=== PATIENT | female | born 1975 | race Caucasian/White ===

== ENCOUNTER 2024-09-23 17:49 | Emergency (ER) | payer MEDICAID, SELFPAY ==
[2024-09-23 17:53] VITALS: BP 134/78
[2024-09-23 18:18] LABS: % Basophils 0.7 % (0-2); % Eosinophils 0.5 % (0-6); % Immature Granulocytes 0.7 % (0-0.5); % Lymphocytes 15.9 % (20.5-51.1); % Neutrophils 74.2 % (42.2-75.2); Absolute Basophils 0.1 10^3/uL (0-0.2); Absolute Eosinophils 0.1 10^3/uL (0-0.7); Absolute Immature Granulocytes 0.1 10^3/uL (0-0.05); Absolute Lymphocytes 2.4 10^3/uL (1.2-3.4); Absolute Monocytes 1.2 10^3/uL (0.1-0.6); Absolute Neutrophils 11.3 10^3/uL (1.4-6.5); Hematocrit 38.3 % (37.0-47.0); Hemoglobin 13.7 g/dL (12.0-16.0); Mean Corp Hgb Conc. 35.8 g/dL (33.0-37.0); Mean Corpuscular Volume 86.7 fL (81.0-99.0); Mean Platelet Volume 8.6 fL (7.4-10.4); Nucleated Red Blood Cells % 0 %; Platelet Count 437 10^3/uL (130-400); Red Blood Cell Count 4.42 10^6/uL (4.20-5.40); Red Cell Dist. Width 14.1 % (11.5-14.5); White Blood Cell Count 15.3 10^3/uL (4.8-10.8)
[2024-09-23 18:28] LABS: ALT (SGPT) 26 U/L (0-35); AST (SGOT) 22 U/L (14-36); Albumin 3.8 g/dl (3.5-5.0); Alkaline Phosphatase 134 U/L (38-126); Blood Urea Nitrogen 13 mg/dl (7-17); Calcium 8.9 mg/dl (8.4-10.2); Carbon Dioxide 21 mmol/L (22-30); Chloride 106 mmol/L (98-107); Glucose 159 mg/dl (70-99); Potassium 3.8 mmol/L (3.5-5.1); Sodium 140 mmol/L (135-145); Total Bilirubin 0.5 mg/dl (0.2-1.3); Total Protein 6.6 g/dl (6.3-8.2); eGFR > 60.00
[2024-09-23 19:00] VITALS: BP 128/77
[2024-09-23 19:30] LABS: Lactic Acid 1.2 mmol/L (0.7-2.0)
--- NOTE | 2024-09-23 19:44 | ED.SKININJ ---
HPI-Injury
General
Chief Complaint: Skin Problem
Source: patient
Exam Limitations: none
Time Seen by Provider: 09/23/24 18:58
Nursing documentation reviewed up to this point in time: agreed with
History of Present Illness-Injury
Is this injury a work related problem?: No
Is pt an associate of [facility]/[place]?: No
Initial Injury comments:
Patient to ED wtih complaint of skin abscess to left lateral chest. Symptms started on Monday. States she tried to drain site last PM, expressed a small amt of pus. Today pain redness and swelling is worse. SHe denies fever/chills. Brought
self to ED for eval.
Past History
Past History
ED Past Medical History: Psychiatric (anxiety)
Review of Systems
Review of Systems
Allergies reviewed?: Yes
All Other Systems: ROS reviewed and negative except as documented in HPI and ROS
Constitutional: Reports no symptoms
EENT: Reports no symptoms
Respiratory: Reports no symptoms
Cardiac: Reports no symptoms
ABD/GI: Reports no symptoms
Musculoskeletal: Reports no symptoms
Skin: Reports other (large abscess left lat chest)
Neurological: Reports no symptoms
Psychiatric: Reports no symptoms
Skin Exam
Abscess
Left Lateral Chest:
Description of abscess: firm
Surrounding skin:: reddened around abscess
Phy Exam
General Physical Exam
General Presentation: well appearing and no apparent distress
General age: appears stated age
General Skin: warm and dry
General Habitus: normal
General Mental: alert
Musculoskeletal Exam
Musculoskeletal Exam: full ROM and neuro vasc intact
Skin Exam
Skin Exam: normal color, warm/dry, no rash and other (large skin abscess left lateral chest)
Psychiatric Exam
Psychiatric Exam: normal mood/affect
Course
Orders/Labs/Results
Orders:
Orders
09/23/24 18:04
Complete Blood Count/With Diff Urgent
Comprehensive Metabolic Panel Urgent
09/23/24 19:11
Lactic Acid Urgent
09/23/24 19:40
Wound Culture [Wound/Abscess/Other Culture] Urgent
KAT Source: Chest
Specimen Description: Left
Date Specimen was Collected: 09/23/24
Time Specimen was Collected: 19:44
09/23/24 19:41
CeFAZolin 1 GRAM [Ancef] 1 gram in 5 ml IV NOW
09/23/24 19:42
CeFAZolin SODIUM [Ancef] 1,000 mg .ROUTE .STK-MED ONE
09/23/24 19:43
Sterile Water [Sterile Water For Injection] 10 ml .ROUTE .STK-MED ONE
Abnormal Lab Results
09/23/24
18:04
WBC 15.3 H 10^3/uL
(4.8-10.8)
Plt Count 437 H 10^3/uL
(130-400)
Abs Immat Gran (auto) 0.1 H 10^3/uL
(0-0.05)
Absolute Neuts (auto) 11.3 H 10^3/uL
(1.4-6.5)
Absolute Monos (auto) 1.2 H 10^3/uL
(0.1-0.6)
Immature Gran % 0.7 H %
(0-0.5)
Lymphocytes % 15.9 L %
(20.5-51.1)
Carbon Dioxide 21 L mmol/L
(22-30)
Creatinine 0.5 L mg/dL
(0.6-1.0)
Glucose 159 H mg/dl
(70-99)
Alkaline Phosphatase 134 H U/L
(38-126)
09/23/24 18:04
09/23/24 18:04
Vital Signs
Initial and Last Documented VS:
Initial Vital Signs
Temp Pulse Resp BP Pulse Ox
98.2 F 103 16 134/78 97
09/23/24 17:53 09/23/24 17:53 09/23/24 17:53 09/23/24 17:53 09/23/24 17:53
Last Documented Vital Signs
Temp Pulse Resp BP Pulse Ox
98.2 F 103 16 134/78 97
09/23/24 17:53 09/23/24 17:53 09/23/24 17:53 09/23/24 17:53 09/23/24 17:53
Procedures
Incision/Drainage/Joint Aspiration
Left Lateral Chest:
Anethesia: 1% Lidocaine with Epi
Preparation: cleaned with Betadine
Type of procedure: incise and drain
Nature of site: abscess
Description of abscess: greater than 3cm
How much fluid was obtained?: large amount
Fluid description: purulent
Treatment: left open for drainage and antibiotics started
*Critical Care Note
Total Time (30-74mins, 75-104mins- exclusive of procedures): Not Applicable
ED Attending Note
-
Portions of this chart may have been created with voice recognition software.� Occasional wrong word or��sound alike� substitutions may have occurred due to the inherent limitations of voice recognition software.
Discharge Plan
Departure
Patient Disposition: Home (Routine Discharge)
Date of Disposition: 09/23/24
Time of Disposition: 19:42
Patient with high blood pressure during this ER visit?: No
Condition: Good
Covid-19: Not Applicable
Discharge Problem:
Abscess of skin
Instructions: Wound Incision and Drainage (DC), Skin Abscess
Prescriptions:
New
cephalexin 500 mg capsule
500 mg PO Q6H 10 Days Qty: 40 0RF
Activity Restrictions/Additional Instructions:
Return to the emergency department immediately for fever/chills, increasing pain/redness/swelling to abscess site, or for any further concerns.
Interventions
Interventions:
*Risk Screen - Suicide Last Done: 09/23/24 17:59
*Neglect/Abuse Screening Last Done: 09/23/24 17:59
ED- Fall Risk Assessment Last Done: 09/23/24 19:11
*ED COVID-19 Vaccine History Last Done: 09/23/24 17:59
ED-Skin Assessment Last Done: 09/23/24 19:11
Discharge Date and Time
Print Language: MAORI
[2024-09-23] MEDS: ANCEF 5 IV (20:08)
[2024-09-23 21:08] VITALS: BP 133/69
== END 2024-09-23 21:08 | disposition home or self-care (01) ==
LOC: EMR 17:49
PROVIDERS: Emergency Medicine; Nurse Practitioner; EMERGENCY PHYSICIAN Student in an Organized Health Care Education/Training Program
DX: L02.213 Cutaneous abscess of chest wall (principal)
CPT/HCPCS: 99284; 96374; 10060; 80053; 83605; 85025; 87070; 87147; 87186; 87205

== ENCOUNTER 2024-10-12 23:01 | Inpatient (IN) | payer MEDICAID, OTHER, SELFPAY ==
[2024-10-12] VITALS (7 sets, daily range): BP systolic 142–150; BP diastolic 72–97; BMI 25.1
[2024-10-12 18:46] LABS: % Basophils 0.2 % (0-2); % Immature Granulocytes 0.6 % (0-0.5); % Lymphocytes 5.4 % (20.5-51.1); % Neutrophils 91.8 % (42.2-75.2); Absolute Immature Granulocytes 0.1 10^3/uL (0-0.05); Absolute Lymphocytes 0.9 10^3/uL (1.2-3.4); Absolute Monocytes 0.3 10^3/uL (0.1-0.6); Absolute Neutrophils 14.4 10^3/uL (1.4-6.5); Hematocrit 39.1 % (37.0-47.0); Hemoglobin 13.8 g/dL (12.0-16.0); Mean Corp Hgb Conc. 35.3 g/dL (33.0-37.0); Mean Corpuscular Hgb 31.9 pg (27.0-31.0); Mean Corpuscular Volume 90.3 fL (81.0-99.0); Mean Platelet Volume 8.6 fL (7.4-10.4); Nucleated Red Blood Cells % 0 %; Platelet Count 164 10^3/uL (130-400); Red Blood Cell Count 4.33 10^6/uL (4.20-5.40); Red Cell Dist. Width 17.9 % (11.5-14.5); White Blood Cell Count 15.7 10^3/uL (4.8-10.8)
[2024-10-12 19:06] LABS: ALT (SGPT) 47 U/L (0-35); AST (SGOT) 127 U/L (14-36); Albumin 4.4 g/dl (3.5-5.0); Alkaline Phosphatase 176 U/L (38-126); Blood Urea Nitrogen 13 mg/dl (7-17); Calcium 9.6 mg/dl (8.4-10.2); Carbon Dioxide 10 mmol/L (22-30); Chloride 98 mmol/L (98-107); Glucose 105 mg/dl (70-99); Lipase 136 U/L (23-300); Potassium 4.4 mmol/L (3.5-5.1); Sodium 133 mmol/L (135-145); Total Bilirubin 1.1 mg/dl (0.2-1.3); eGFR > 60.00
--- NOTE | 2024-10-12 19:24 | ED.GENMED ---
History of Present Illness
General
Chief Complaint: Abdominal Symptoms
Source: patient
Time Seen by Provider: 10/12/24 19:18
History of Present Illness
History of Present Illness:
48-year-old female presents to the emergency room complaining of nausea vomiting. Patient has been having the symptoms for the past 2 days. She states she is unable to keep anything down at all. She keeps retching anytime she tries to consume
anything. She has a history of peptic ulcer disease many years ago and this concerned her as well. She denies diarrhea.
Past History
Past History
ED Past Medical History: Psychiatric (anxiety)
Phy Exam
Physical Exam
Physical Exam:
General: Awake, Alert, Oriented X3. Patient appears uncomfortable,
Vitals: unremarkable
Head: Atraumatic
Eyes: Pupils equal, EOMI, eyes sunken
Throat: Airway intact, no exudates very dry mucosa
Neck: Trachea midline
Lungs: Clear and equal b/l
Heart: Regular rate, no murmurs
Abd: Soft, mild epigastric discomfort, No pulsatile mass
Neuro: Nonfocal
Skin: Warm, dry, no rash
Extremities: pulses equal b/l, no edema
Course
Orders/Labs/Results
Orders:
Orders
10/12/24 18:28
Electrocardiogram (*1) Urgent
Reason for Study: Tachycardia
EKG- Treatment ONCE
10/12/24 18:40
Complete Blood Count/With Diff Urgent
Comprehensive Metabolic Panel Urgent
Lipase Urgent
10/12/24 19:24
Famotidine [Pepcid] 20 mg IV NOW STA
Lactated Ringers [Lr] 1,000 ml IV BOLUS
Ondansetron Injectable [Zofran] 4 mg IV NOW STA
10/12/24 20:22
Ketorolac [Toradol] 15 mg IV NOW STA
Ondansetron Injectable [Zofran] 4 mg IV NOW STA
US Abdomen Complete/Upper Urgent
Comment:
Reason For Exam: upper abd pain, vomiting
10/12/24 20:45
Lactated Ringers [Lr] 1,000 ml IV BOLUS
10/12/24 22:03
Diphenhydramine [Benadryl] 25 mg IV NOW STA
Prochlorperazine [Compazine] 10 mg IV NOW STA
10/12/24 22:04
CT Abd/pelvis W Iv Cont Urgent
Comment:
Reason For Exam: upper abdominal pain
10/12/24 22:19
Lorazepam [Ativan] 2 mg IV NOW STA
10/12/24 22:29
Basic Metabolic Panel Urgent
Lactic Acid Urgent
Salicylate Urgent
Serum Osmolality Urgent
Urinalysis Reflex To Culture Urgent
Date Specimen was Collected: 10/12/24
Time Specimen was Collected: 22:28
Urine Drug Abuse Screen Urgent
Date Specimen was Collected: 10/12/24
Time Specimen was Collected: 22:28
Venous Blood Gas Urgent
%Oxygen/Room Air: ra
10/12/24 22:41
Admit/Transfer Patient As Directed
Co-Sign Provider:
Level of Care: Inpatient admission
Assign to:: Telemetry
Physician / Group: Pk
Diagnosis: Metabolic Acidosis
Reason for Telemetry: Arrhythmia
Date to Stop Telemetry: 10/15/24
Time to Stop Telemetry: 11:00
Reason for Hospitalization: IVFs
Expected length of stay greater than two midnights?: Yes
ELOS- Estimated Length of Stay in days: 3
I certify the patient meets the requirements for IP care: Yes
10/12/24 22:42
Code Status As Directed
Resuscitation Status: Full Code
PRN Pain Medication Management As Directed
May give lesser potent ordered pain med per pt: Yes
preference::
Protocol:: Medication orders for pain may be administered in a
manner that supports deferring to patient preference
when the pt is:
- Requesting an ordered lesser potent pain medication.
Least to most potent pain medications are defined
as: acetaminophen < NSAID < tramadol < opioids
(morphine, oxycodone, hydromorphone).
- Requesting a lesser dose of the same medication IF
ORDERED.
- Requesting a less intrusive route of administration
if both routes are prescribed by the provider (PO <
IV).
10/12/24 22:48
Pantoprazole [Protonix IV] 40 mg IV NOW STA
10/12/24 22:53
0.9% Sodium Chloride [Nss (Preservative Free)] 10 ml IV NOW STA
10/12/24 23:00
Dextrose 5%/0.9%Sodchl 1000 ml [D5/0.9% Sodium Chloride] 1,000 ml IV 150 mls/hr
Flush (0.9% Sodium Chloride) [Flush (Nss)] See Dose Instructions IV PER PROTOCOL
10/13/24 00:24
0.9% Sodium Chloride [Nss (Preservative Free)] See Protocol IV PRN PRN
Acetaminophen [Tylenol] 650 mg PO Q4HPRN PRN
FOLic ACID [Folvite] 1 mg 0.9% Sodium Chloride 50 ml [Nss] 50 ml IV DAILYPRN
Lorazepam [Ativan] 1 mg IV Q1HPRN PRN
Lorazepam [Ativan] 1 mg PO Q2HPRN PRN
Lorazepam [Ativan] 2 mg IV Q1HPRN PRN
Morphine Sulfate 2 mg IV Q4HPRN PRN
Ondansetron Injectable [Zofran] 4 mg IV Q6HPRN PRN
10/13/24 00:24
Activity As Directed
Activity Level: Out of Bed-Early Mobility
With Assistance
I&O [Intake/ Output] As Directed
Frequency: q12h
MSAS SCORE As Directed
MSAS Score 0-4: Repeat MSAS every 2 hours until 0-4 for three consecutive assessments, then every 4 hours x 48
hours.
MSAS Score 5-7: For MILD withdrawl symptoms. Repeat MSAS and RASS every 2 hours
MSAS Score 8-11: For MODERATE withdrawal symptoms. Repeat MSAS and RASS every 1 hour. Consider ICU or IMU
level of care.
MSAS Score > 11: For SEVERE withdrawal symptoms. Repeat MSAS and RASS every 1 hour. Notify provider, consider
ICU level of care.
MSAS Additional Instructions: If no improvement or no decrease in score from severe to moderate within 12
hours, consult psychiatry
MSAS Notify Provider: Notify provider if patient requires more than 10 mg of Lorazepam in eight hour period.
Vital Signs As Directed
Frequency: Per unit guidelines
DX Deep Vein Thrombosis Video Routine
10/13/24 Breakfast
NPO
Allow oral meds: Yes
Allow clear liquids: Sips of Clears
NPO with Ice Chips: Yes
Complete Blood Count/No Diff IN AM
Comprehensive Metabolic Panel IN AM
GGTP IN AM
Magnesium IN AM
10/13/24 08:00
FOLic ACID [Folvite] 1 mg PO DAILY
Pantoprazole [Protonix IV] 40 mg IV DAILY
Thiamine Injection 200 mg IV Q12
10/13/24 18:00
Enoxaparin Sodium [Lovenox] 40 mg SC QPM
10/15/24 11:00
DC Protocol for Telemetry ONCE
10/16/24 08:00
Thiamine HCl [Vitamin B1] 100 mg PO BID
Abnormal Lab Results
10/12/24 10/12/24
18:40 22:29
WBC 15.7 H 10^3/uL
(4.8-10.8)
MCH 31.9 H pg
(27.0-31.0)
RDW 17.9 H %
(11.5-14.5)
Abs Immat Gran (auto) 0.1 H 10^3/uL
(0-0.05)
Absolute Neuts (auto) 14.4 H 10^3/uL
(1.4-6.5)
Absolute Lymphs (auto) 0.9 L 10^3/uL
(1.2-3.4)
Immature Gran % 0.6 H %
(0-0.5)
Neutrophils % 91.8 H %
(42.2-75.2)
Lymphocytes % 5.4 L %
(20.5-51.1)
VBG pH 7.30 L
(7.32-7.43)
VBG pCO2 25 L mmHg
(35-48)
VBG pO2 101 H mmHg
(30-50)
VBG HCO3 12.3 L mmol/L
(22-27)
Sodium 133 L mmol/L 131 L mmol/L
(135-145) (135-145)
Carbon Dioxide 10 L* mmol/L 10 L* mmol/L
(22-30) (22-30)
Creatinine 0.5 L mg/dL 0.5 L mg/dL
(0.6-1.0) (0.6-1.0)
Glucose 105 H mg/dl
(70-99)
Lactic Acid 4.1 H* mmol/L
(0.7-2.0)
AST 127 H U/L
(14-36)
ALT 47 H U/L
(0-35)
Alkaline Phosphatase 176 H U/L
(38-126)
Urine Ketones 3+ A
(Negative)
Salicylates < 1.0 L mg/dl
(2.0-20.0)
10/12/24 18:40
10/12/24 22:29
Vital Signs
Initial and Last Documented VS:
Initial Vital Signs
Temp Pulse Resp BP Pulse Ox
97.6 F 145 18 148/96 99
10/12/24 18:24 10/12/24 18:24 10/12/24 18:24 10/12/24 18:24 10/12/24 18:24
Last Documented Vital Signs
Temp Pulse Resp BP Pulse Ox
98.9 F 131 21 155/82 94
10/12/24 20:36 10/13/24 01:00 10/13/24 00:45 10/13/24 00:39 10/13/24 01:00
MDM/Problems Addressed
Differential Diagnosis Includes:
Dehydration, toxic alcohol ingestion, alcoholic ketoacidosis, pancreatitis, gastritis
MDM/Problems Addressed:
Patient presents feeling quite uncomfortable with nausea vomiting and dehydration. 2 L lactated Ringer's initiated. Patient had labs that showed a significant anion gap metabolic acidosis. Hope with this this would respond to IV fluid but she did
not feel any better after IV fluid and IV antiemetics. Patient still unable to tolerate even a small amount of liquids. Upon further questioning the patient endorses recent alcohol use. She seems reluctant to describe the amount she drinks but I
suspect it is quite a bit. Patient denies consuming toxic alcohols. 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 She denies. Venous blood gas shows pH to be mildly low. Serum osmolality 288 so not high enough for me to have a
high concern for toxic ingestion. Most likely alcoholic ketoacidosis. Patient will require hospitalization for further fluid resuscitation, symptom management. Patient also given 2 mg of lorazepam ice I suspect alcohol withdrawal may also be
playing a part in her symptoms.
*Radiology
Radiology exam reviewed: radiology read reviewed
*Pulse Oximetry
Patient hypoxic: no
*EKG
Interpreted by ED Provider?: Yes
Heart Rate: 142
Rate: tachycardiac
Rhythm: sinus tachycardia
Interval: normal interval
QRS Pattern: normal QRS
Ischemia: no ischemia
*Endocrinology Nurse Interpretation
Rate: tachycardiac
Interpretation: abnormal
Rhythm: sinus tachycardia
*Critical Care Note
Total Time (30-74mins, 75-104mins- exclusive of procedures): 35 min
comment:
Critical care statement: A total of 35 minutes of critical care time was provided for this patient. This includes management of unstable vital signs, evaluation of the patient at bedside, reviewing the patient's pertinent medical records, discussion
with consultants, review of old EKGs and review of pertinent medical records. This time with separate from time utilized to perform the aforementioned documented procedures
Patient Management
Social determinants of health affecting care: Substance abuse
Discussion with other providers: Hospitalist
ED Attending Note
-
Portions of this chart may have been created with voice recognition software.� Occasional wrong word or��sound alike� substitutions may have occurred due to the inherent limitations of voice recognition software.
Discharge Plan
Departure
Patient Disposition: Admit
Date of Disposition: 10/12/24
Time of Disposition: 22:19
Presentation/result/management discussed w/ accepting MD/DO: Hospitalist
Condition: Fair
Discharge Problem:
Nausea & vomiting, Acute dehydration, Metabolic acidosis, Abdominal pain, Transaminitis
Interventions
Interventions:
*Risk Screen - Suicide Last Done: 10/12/24 18:24
*General Assessment Last Done: 10/12/24 18:24
*Neglect/Abuse Screening Last Done: 10/12/24 19:38
*ED COVID-19 Vaccine History Last Done: 10/12/24 18:24
YV-Orecwk-Uqlleehjhh Assessment Last Done: 10/12/24 19:38
[2024-10-12] MEDS: LR 1000 IV ×2 (19:43→20:52)
[2024-10-12] MEDS: ZOFRAN 4 MG IV ×2 (19:44→20:33)
[2024-10-12] MEDS: PEPCID 20 MG IV (19:45)
[2024-10-12] MEDS: TORADOL 15 MG IV (20:33)
[2024-10-12] MEDS: ATIVAN 2 MG IV (22:32)
[2024-10-12 22:43] LABS: Urine Albumin Trace (Neg - Trace); Urine Bilirubin Negative (Negative); Urine Character Clear (Clear); Urine Color Yellow; Urine Glucose Negative (Negative); Urine Ketone 3+ (Negative); Urine Leukocyte Negative (Negative); Urine Nitrite Negative (Negative); Urine Occult Blood Negative (Negative); Urine Urobilinogen Negative (Neg - 1+); Venous Blood Gas B.E. -12.5 mmol/L (-4 to +4); Venous Blood Gas HCO3 12.3 mmol/L (22-27); Venous Blood Gas O2 Sat % 98.6 %; Venous Blood Gas pCO2 25 mmHg (35-48); Venous Blood Gas pO2 101 mmHg (30-50)
[2024-10-12] MEDS: COMPAZINE 10 MG IV (22:46)
[2024-10-12] MEDS: BENADRYL 25 MG IV (22:46)
--- NOTE | 2024-10-12 22:51 | HPS.HSE ---
Family Physician
-
Family Physician: * NONE
Chief Complaint
-
Vomiting
History of Present Illness
Patient is a 48 y/o female past medical history of asthma, peptic ulcer disease and alcohol use disorder who presents with vomiting. Patient reports she started vomiting Monday evening and has not been able to keep any liquids down since that
time. She reports now she has significant dry heaves, and has developed significant epigastric abdominal pain that radiates to her back. She reports prior episode of alcohol pancreatitis which was similar, but that was several years ago. She was
sober for 9 months up until recently when she started drinking vodka again due to increasing depression. She denies hematemesis. She denies diarrhea.
Medical History
Past Medical History
Past Medical History: Reports Other
Additional Past Medical History:
Asthma
Peptic Ulcer Disease
Anxiety/Depression
Alcohol Use Disorder
Past Surgical History: Reports None
Social History
Tobacco: Vaping
Alcohol: Other (Signficant alcohol use in the past and was sober for 9 months until recently when she started drinking vodka again)
Family History
Family History: Not pertinent
Allergies / Home Medications
Allergies reflects when Allergies were last updated in [employer].
Home Medications with original date entered in [employer]
Allergy/Medication List:
Allergies
Allergy/AdvReac Type Severity Reaction Status Date / Time
codeine Allergy Vomiting Verified 10/12/24 18:28
Home Medications
No Meds [No Current Medications] 10/12/24
Review of Systems
-
A 12 point ROS was completed and negative except as noted: Yes
Constitutional: Denies Fever
Respiratory: Denies Cough or Trouble Breathing
Cardiac: Denies Chest Pain or Palpitations
Abdomen/GI: Reports See HPI
Physical Exam
Vital Signs
Vital Signs
Temp Pulse Resp BP Pulse Ox
98.9 F 129 16 146/82 96
10/12/24 20:36 10/12/24 22:45 10/12/24 22:45 10/12/24 22:44 10/12/24 22:45
Physical Exam
General: Well Developed, Well Nourished and Pain
HEENT: NormoCephalic, Anicteric and Atraumatic
Respiratory: Clear and Non Labored Respirations
Cardiac: S1/S2, Regular Rhythm and Tachycardia
GI: Soft, Tender (Tenderness epigastric region) and Other (Slightly hypoactive bowel sounds)
Rectal: Deferred by Provider
Genito-urinary: Clear Urine
Musculoskeletal: No Clubbing, No Cyanosis and No Edema
Skin: Warm and Dry
Neuro: Awake, Alert, Oriented, Nonfocal/grossly intact and Other (Slightly tremulous )
Psych: Calm
Laboratory Results
-
10/12/24 18:40
Laboratory Results
Total Bilirubin 1.1 mg/dl (0.2-1.3) 10/12/24 18:40
AST 127 U/L (14-36) H 10/12/24 18:40
ALT 47 U/L (0-35) H 10/12/24 18:40
Alkaline Phosphatase 176 U/L (38-126) H 10/12/24 18:40
Lipase 136 U/L (23-300) 10/12/24 18:40
Data Reviewed
-
Lab Data: Labs Reviewed by me
Impression/Plan
-
High Anion Gap Acidosis, suspect alcoholic ketoacidosis
-Continue IVFs
-Await Repeat BMP
-Check Lactic Acid
Gastritis / Hepatitis
-Continue NPO/IVFS
-Continue Zofran PRN
-Continue Protonix
-Await CT Scan
Alcohol Use Disorder
-Continue thiamine and folic acid
-Continue alcohol withdrawal protocol
DVT proph: Lovenox
Code Status: Full Code
--- NOTE | 2024-10-12 22:52 | W.PN.UPDATE ---
Update Note
Progress Note Update
Patient seen in conjunction with SZUE. I agree with the findings on history and physical as well assessment and plan unless stated otherwise.
This is a 48-year-old female was past medical history that is significant for peptic ulcer disease status post EGD and prior treatment with clearance of the ulcer and symptoms several years ago who presents to the emergency department with nausea
vomiting and epigastric pain with symptoms starting about 3 to 4 days ago. She reports initially vomiting up well but liminal some of ingested fluid and food. Now she has more of bilious emesis. She denied coffee-ground emesis. She reports
abdominal pain localized to the epigastric region. She also describes her bilateral lower upper quadrant pain as well as back pain associated with the vomiting. She has had no diarrhea. Last p.o. intake was about 3 days ago. She took PPI at home
without any improvement. Patient denies any sick contacts. She denies any recent travels. She denies any recent NSAID use. She denies any Tylenol. She denies cannabis. She denies any other medications or ingestions. No prior surgeries. She
has a history of alcohol use and alcohol withdrawal and reported that she has been drinking regularly recently. History suggest trial longstanding alcohol use with a period of abstinence prior to recent use.
In the emergency department she was tachycardic, afebrile, blood pressure was 140/60 with a oxygen saturation of 97%. ECG shows sinus tachycardia to [address] or T wave changes. She had a white count of 15,000 with normal hemoglobin
and platelet counts. Electrolytes were notable for a bicarb of 10 with normal BUN/creatinine. Anion gap was 25. pH 7.3, pCO2 25. Glucose was normal at 103. Lactate 4.1. No osmolar gap. Sodium was 133 with normal potassium. LFTs were notable for
AST of 140 and slightly elevated ALT. T. bili was normal. She had a abdominal ultrasound which shows no acute abnormalities. u/a 3+ ketones, SG 1.030 otherwise unremarkable. Utox negative. Neg salicylate level.
CT scan suggestion of mild diffuse wall thickening of the colon, no intestinal obstruction or free here, normal appendix, enlarged and diffusely fatty liver without ascites and atrophic calcified pancreas consistent with chronic pancreatitis.
Unremarkable gallbladder.
Exam shows uncomfortable appearing middle aged female, dry mucus membranes, tachycardic and slightly tachypneic. Clear lungs. No murmurs. 2+ pulses throughout. Epigastric tenderness w/o rebound or guarding. No rash, swelling or jaundice.
A&P
Patient w/ gastritis and a anion gap metabolic acidosis w/o evidence of acute ingestions. Likely alcohol ketoacidosis w/ starvation ketoacidosis with acute gastritis. Transaminitis c/w ETOH/Fatty liver. Tachycardial likely due to hypovolemia but
cannot rule out withdrawal.
Admit to Tele due to tachycardia.
Gastritis - Suspect etoh gastritis with marked dehydration. Likely developed ketoacidosis prior to vomiting given minimal concomitant alkalosis.
- IV ppi
- antiemetics, pain control
- NPO
- IV fluids
Anion gap metabolic acidosis - Lactic acidosis w/ ketones c/w starvation and etoh ketoacidosis. No osmolar gap and negative toxicology.
- IV D5 NS should correct ketogenesis gradually
- thiamine/folate supplementation
- repeat bmp/lactate in 6-8 hours
Hypovolemia - no fluid or dietary intake x 4 days, tachycardia, elevated urine SG
- IV fluids as above
Transaminitis - unremarkable gall bladder and ducts. Chronic pancreatitis. Fatty liver. AST/ALT all c/w alcoholic liver disease w/o cirrhosis
- trend, check lipid panel
ETOH dependence - tachycardia may reflect withdrawal, > 48 hours since last drink
- MSAS protocol
DVT PPX - lovenox sq
Code status - full code
[2024-10-12 22:55] LABS: Amphetamines Negative (Negative); Barbiturates Negative (Negative); Benzodiazepines Negative (Negative); Buprenorphine Negative (Negative); Cocaine Negative (Negative); Marijuana Negative (Negative); Methadone Negative (Negative); Methamphetamines Negative (Negative); Opiates Negative (Negative); Phencyclidine Negative (Negative); Tricyclic Antidepressants Negative (Negative)
[2024-10-12 23:03] LABS: Lactic Acid 4.1 mmol/L (0.7-2.0); Osmolality Serum 288 mOsm/kg (275-300)
[2024-10-12 23:11] LABS: Blood Urea Nitrogen 10 mg/dl (7-17); Calcium 9.2 mg/dl (8.4-10.2); Carbon Dioxide 10 mmol/L (22-30); Chloride 100 mmol/L (98-107); Estimated Creatinine Clearance 104 ml/min; Glucose 85 mg/dl (70-99); Potassium 4.3 mmol/L (3.5-5.1); Salicylate < 1.0 mg/dl (2.0-20.0); Sodium 131 mmol/L (135-145); eGFR > 60.00
[2024-10-12] MEDS: PROTONIX IV 40 MG IV (23:19)
[2024-10-12] MEDS: D5/0.9% SODIUM CHLORIDE 1000 IV (23:19)
[2024-10-12] MEDS: NSS (PRESERVATIVE FREE) 10 ML IV (23:19)
[2024-10-13] VITALS (10 sets, daily range): BP systolic 131–155; BP diastolic 80–96; BMI 26.3
[2024-10-13] MEDS: ATIVAN 2 MG IV (02:43)
[2024-10-13] MEDS: NSS (PRESERVATIVE FREE) 10 ML IV ×2 (05:21→08:32)
[2024-10-13] MEDS: ATIVAN 1 MG IV ×2 (05:21→12:07)
--- NOTE | 2024-10-13 05:34 | PTCARENOTE ---
Received patient from ED via stretcher. Telemetry order> Sinus Tachycardic on monitor. Afebrile, HR 90-120s, RR 19, BP 145/88, pox 99% room air. No c/o pain. IVF infusing through #[id number]. MSAS 8- per protocol, 1mg IV Ativan administered-Q1H
assessment.
Patient oriented to room. Discussed plan of care. Call jean baptiste within reach.
[2024-10-13] MEDS: D5/0.9% SODIUM CHLORIDE 1000 IV ×2 (06:06→17:53)
[2024-10-13 06:55] LABS: Lactic Acid 0.7 mmol/L (0.7-2.0)
[2024-10-13 07:06] LABS: ALT (SGPT) 37 U/L (0-35); AST (SGOT) 76 U/L (14-36); Albumin 3.1 g/dl (3.5-5.0); Alkaline Phosphatase 113 U/L (38-126); Blood Urea Nitrogen 8 mg/dl (7-17); Calcium 8.4 mg/dl (8.4-10.2); Carbon Dioxide 19 mmol/L (22-30); Chloride 100 mmol/L (98-107); Estimated Creatinine Clearance 104 ml/min; GGTP 129 U/L (12-43); Glucose 186 mg/dl (70-99); Magnesium 1.7 mg/dl (1.6-2.3); Potassium 3.6 mmol/L (3.5-5.1); Sodium 129 mmol/L (135-145); Total Bilirubin 1.3 mg/dl (0.2-1.3); Total Protein 5.5 g/dl (6.3-8.2); eGFR > 60.00
[2024-10-13 07:10] LABS: Hematocrit 29.4 % (37.0-47.0); Hemoglobin 10.6 g/dL (12.0-16.0); Mean Corp Hgb Conc. 36.1 g/dL (33.0-37.0); Mean Corpuscular Volume 88.8 fL (81.0-99.0); Red Blood Cell Count 3.31 10^6/uL (4.20-5.40); Red Cell Dist. Width 17.5 % (11.5-14.5); White Blood Cell Count 4.2 10^3/uL (4.8-10.8)
[2024-10-13] MEDS: FOLVITE 1 MG PO (08:32)
[2024-10-13] MEDS: PROTONIX IV 40 MG IV (08:32)
[2024-10-13] MEDS: THIAMINE INJECTION 200 MG IV ×2 (08:32→19:55)
[2024-10-13 08:52] LABS: Alcohol None Detected
[2024-10-13 08:57] LABS: Mean Platelet Volume 8.9 fL (7.4-10.4); Platelet Count 92 10^3/uL (130-400)
[2024-10-13] MEDS: SODIUM PHOSPHATE 255 MEQ IV (09:33)
[2024-10-13] MEDS: ATIVAN 1 MG PO ×2 (10:38→13:10)
--- NOTE | 2024-10-13 10:49 | W.PN.HOSP.TC ---
Today's Communication/Plan
-
advanced to fulls
replete phos
IV ppi
Assessment / Plan
Assessment / Plan
A&P
Patient w/ gastritis and a anion gap metabolic acidosis w/o evidence of acute ingestions. Likely alcohol ketoacidosis w/ starvation ketoacidosis with acute gastritis. Transaminitis c/w ETOH/Fatty liver. Tachycardial likely due to hypovolemia but
cannot rule out withdrawal.
Admit to Tele due to tachycardia.
Gastritis and Enterocolitis- Suspect etoh gastritis with marked dehydration. Likely developed ketoacidosis prior to vomiting given minimal concomitant alkalosis.
- IV ppi
- antiemetics, pain control
- Advance to full's.
- IV fluids and can be stopped later today.
- CT abd/pelvis w/Mild bowel wall thickening involving several loops of distal small bowel and the proximal colon, suggestive of mild enterocolitis.
Anion gap metabolic acidosis - Lactic acidosis w/ ketones c/w starvation and etoh ketoacidosis. No osmolar gap and negative toxicology.
- IV D5 NS should correct ketogenesis gradually
- thiamine/folate supplementation
-Acidosis improved. Start p.o. bicarb.
Hypovolemia - no fluid or dietary intake x 4 days, tachycardia, elevated urine SG
- IV fluids as above
Transaminitis - unremarkable gall bladder and ducts. Chronic pancreatitis. Fatty liver. AST/ALT all c/w alcoholic liver disease w/o cirrhosis
- trend
ETOH dependence - tachycardia may reflect withdrawal, > 48 hours since last drink
- MSAS protocol
Mild hyponatremia
-Trend for now.
Pancytopenia likely secondary to alcohol abuse
-Trend CBC follow
-Check anemia panel. Drop in platelets noted. Hold Lovenox for now.
Chronic pancreatitis Likely secondary to alcohol abuse
-Monitor symptoms for now.
Hypophosphatemia
-Replete and monitor
DVT PPX -SCDs for now.
Code status - full code
Anticipated Discharge: > 48 hours
Subjective/Interval History
-
Date of Service: October 13, 2024
Denies any abdominal pain
Denies any nausea vomiting
States of dry mouth
Objective Data
-
Labs:
Laboratory Results
10/12/24 10/13/24
22:29 06:33
WBC 4.2 L
Hgb 10.6 L D
Hct 29.4 L
Plt Count 92 L D
Sodium 131 L 129 L
Potassium 4.3 3.6
Chloride 100 100
Carbon Dioxide 10 L* 19 L
BUN 10 8
Creatinine 0.5 L 0.5 L
Glucose 85 186 H
Calcium 9.2 8.4
Total Bilirubin 1.3
AST 76 H
ALT 37 H
Alkaline Phosphatase 113
Vital Signs:
Vital Signs
Temp Pulse Resp BP Pulse Ox
98.5 F 96 18 143/80 97
10/13/24 07:46 10/13/24 07:46 10/13/24 07:46 10/13/24 07:46 10/13/24 07:46
I&O
10/12/24 10/13/24 10/14/24
06:59 06:59 06:59
Intake Total 300 / 300
Balance 300 / 300
Physical Exam
-
General: Well Developed, Well Nourished and No Apparent Distress
HEENT: Normocephalic and Atraumatic
Respiratory: Clear to Auscultation
Cardiac: Regular Rhythm and S1/S2; Negative Murmur, Rub or Gallop
GI: Soft, Nontender, Nondistended and Normal Bowel Sounds; Negative Organomegaly
Rectal: Deferred by Provider
Musculoskeletal: No Clubbing, No Cyanosis and No Edema
Skin: Negative Rash
Neuro: Awake, Alert, Oriented, AO x 3, No Motor Deficits and Nonfocal/Grossly Intact
Psych: Calm
Data Reviewed
-
Total Time Spent with Patient (in minutes): 55
[2024-10-13 11:28] LABS: Iron 155 ug/dl (37-170)
[2024-10-13 11:34] LABS: Percent Saturation 90 % (20-50); Total Iron Binding Capacity 172 ug/dl (265-497)
[2024-10-13] MEDS: SODIUM BICARBONATE 650 MG PO ×3 (12:13→22:02)
[2024-10-13 12:38] LABS: Folate 4.6 ng/ml (2.76-20); Vitamin B12 812 pg/ml (239-931)
--- NOTE | 2024-10-13 12:45 | CM ---
Patient seen at bedside x2. Patient initially indicated that she was unable to understand how to go to the bathroom with the IV attached, nursing assisted and then patient was shaking with chills when CM returned. Nursing addressed. Patient stated
that she lives alone in a one story home with a PCP in [place] that she did not know the name and that she uses the [facility] [address] in [place]. CM will continue to follow for discharge planning needs.
Plan; review options for supports at discharge; [facility] if patient will allow, follow for functional need assessment.
[2024-10-13] MEDS: ZOFRAN 4 MG IV ×2 (14:46→22:47)
[2024-10-13] MEDS: LIBRIUM 25 MG PO ×2 (17:37→22:01)
[2024-10-13] MEDS: MORPHINE SULFATE 2 MG IV (19:56)
[2024-10-13] MEDS: XOPENEX 1.25 MG INHALANT SOLUTION INH (22:29)
[2024-10-14] MEDS: ATIVAN 1 MG IV (00:57)
[2024-10-14] MEDS: NSS (PRESERVATIVE FREE) 0.5 ML IV (01:04)
[2024-10-14 03:33] VITALS: BP 138/86
[2024-10-14] MEDS: ATIVAN 1 MG PO ×5 (04:03→20:20)
[2024-10-14] MEDS: XOPENEX 1.25 MG INHALANT SOLUTION INH ×2 (04:27→11:10)
[2024-10-14 06:00] VITALS: BMI 26.3
[2024-10-14 07:21] VITALS: BP 137/87
[2024-10-14] MEDS: PROTONIX IV 40 MG IV (07:41)
[2024-10-14] MEDS: NSS (PRESERVATIVE FREE) 10 ML IV (07:41)
[2024-10-14] MEDS: FOLVITE 1 MG PO (07:42)
[2024-10-14] MEDS: THIAMINE INJECTION 200 MG IV ×2 (07:42→20:19)
[2024-10-14] MEDS: LIBRIUM 25 MG PO ×3 (07:42→23:14)
[2024-10-14] MEDS: SODIUM BICARBONATE 650 MG PO (07:42)
[2024-10-14 08:46] LABS: INR 1.14; PT 14.9 Sec (11.4-14.6)
[2024-10-14 08:48] LABS: % Basophils 0.5 % (0-2); % Eosinophils 0.7 % (0-6); % Immature Granulocytes 1.2 % (0-0.5); % Lymphocytes 20.1 % (20.5-51.1); % Monocytes 8.2 % (1.7-9.3); % Neutrophils 69.3 % (42.2-75.2); Absolute Immature Granulocytes 0.1 10^3/uL (0-0.05); Absolute Lymphocytes 0.9 10^3/uL (1.2-3.4); Absolute Monocytes 0.4 10^3/uL (0.1-0.6); Hematocrit 28.4 % (37.0-47.0); Hemoglobin 10.6 g/dL (12.0-16.0); Mean Corp Hgb Conc. 37.3 g/dL (33.0-37.0); Mean Corpuscular Hgb 32.4 pg (27.0-31.0); Mean Corpuscular Volume 86.9 fL (81.0-99.0); Nucleated Red Blood Cells % 0 %; Red Blood Cell Count 3.27 10^6/uL (4.20-5.40); Red Cell Dist. Width 16.7 % (11.5-14.5); White Blood Cell Count 4.3 10^3/uL (4.8-10.8)
[2024-10-14 09:12] LABS: Mean Platelet Volume 9.3 fL (7.4-10.4); Platelet Count 59 10^3/uL (130-400)
[2024-10-14] MEDS: ATIVAN PO (09:31)
[2024-10-14 10:16] LABS: ALT (SGPT) 35 U/L (0-35); AST (SGOT) 70 U/L (14-36); Albumin 3.2 g/dl (3.5-5.0); Alkaline Phosphatase 109 U/L (38-126); Blood Urea Nitrogen < 2 mg/dl (7-17); Calcium 8.2 mg/dl (8.4-10.2); Carbon Dioxide 32 mmol/L (22-30); Chloride 93 mmol/L (98-107); Estimated Creatinine Clearance 104 ml/min; Glucose 176 mg/dl (70-99); Magnesium 1.4 mg/dl (1.6-2.3); Phosphorus 0.7 mg/dl (2.5-4.5); Potassium 2.5 mmol/L (3.5-5.1); Sodium 130 mmol/L (135-145); Total Bilirubin 1.2 mg/dl (0.2-1.3); Total Protein 5.7 g/dl (6.3-8.2); eGFR > 60.00
[2024-10-14] MEDS: MAGNESIUM SULFATE 100 IV (10:39)
[2024-10-14] MEDS: KCL 40 MEQ PO (10:40)
[2024-10-14 11:12] VITALS: BP 135/99
--- NOTE | 2024-10-14 11:21 | PTCARENOTE ---
Pt w/ labile mood, at times withdrawn, confused, other times anxious and tearful. Stating repeatedly she wants to go home and we aren't doing anything to help her. Emotional support provided. Modesta remains in room for safety. Continue to follow
MSAS protocol, see documentation and MAR. HR NSR 90- ST 110's on monitor. Tolerating diet. Reports only mild slight abdominal pain at this time. Abnormal lab values reported to Dr Eason.
[2024-10-14] MEDS: NEUTRA-PHOS POWDER PACKET 250 MG PO ×3 (13:02→23:14)
--- NOTE | 2024-10-14 13:25 | CM ---
Patient seen at bedside.
Hx: asthma, PUD, alcohol pancreatitis
chemistry abnormal - Na 130, K 2.5, Ca 8.2
tearful, asking for 'my vape and my albuterol'
Discussed [facility] resources - declined at this time. CM to follow-up again.
She states that she has been in rehab in the past-uable to obtain names of facility.
States her PCP is Dr. Sonia Kimbrough in [place]
PLAN: Discharge when medically stable, CM to follow for needs.
--- NOTE | 2024-10-14 14:03 | W.PN.HOSP.TC ---
Today's Communication/Plan
-
Advance to regular diet
Psychiatry consult
Replete electrolytes
Assessment / Plan
Assessment / Plan
Gen-AAOx3, NAD
HEENT-NC, AT, anicteric, clear oral mm
Neck-supple
CV-reg, no M, +S1/S2
Lungs-clear B/L
Abd-soft, NT, ND
Ext-no edema
Musculoskeletal-no cyanosis, clubbing
Skin-warm and dry
Neuro-grossly non-focal
Psych-calm, cooperative
Acute alcohol withdrawal syndrome -improving on current regimen of Librium and as needed Ativan. Continue folic acid, thiamine.
Acute gastritis and Enterocolitis- Suspect etoh gastritis with marked dehydration. Likely developed ketoacidosis prior to vomiting given minimal concomitant alkalosis.
- IV ppi
- antiemetics, pain control
- Advance to regular diet
- CT abd/pelvis w/Mild bowel wall thickening involving several loops of distal small bowel and the proximal colon, suggestive of mild enterocolitis.
Anion gap metabolic acidosis -due to alcoholic ketoacidosis, starvation. Acidosis resolved. Bicarb 32. Stop sodium bicarbonate.
Hypovolemia - no fluid or dietary intake x 4 days, tachycardia, elevated urine SG
- IV fluids as above
Hypokalemia/hypomagnesemia/hypophosphatemia -will replete. Recheck labs in the morning.
Transaminitis - unremarkable gall bladder and ducts. Chronic pancreatitis. Fatty liver. AST/ALT all c/w alcoholic liver disease w/o cirrhosis
- trend
Severe alcohol use disorder -underlying depression. Consult psychiatry. She is agreeable.
Mild hyponatremia
-Trend for now.
Pancytopenia likely secondary to alcohol abuse
-Trend CBC follow
No signs of iron deficiency. B12 and folic acid normal.
Chronic pancreatitis Likely secondary to alcohol abuse
-Monitor symptoms for now.
DVT PPX -SCDs for now.
Full code
Anticipated Discharge: 24 - 48 hours
Subjective/Interval History
-
Date of Service: October 14, 2024
Patient seen and examined. Very tearful, upset over not having access to her albuterol inhaler. Asking for her vaping pen.
Objective Data
-
Labs:
Laboratory Results
10/14/24
07:31
WBC 4.3 L
Hgb 10.6 L
Hct 28.4 L
Plt Count 59 L D
PT 14.9 H
INR 1.14
Sodium 130 L
Potassium 2.5 L* D
Chloride 93 L
Carbon Dioxide 32 H
BUN < 2 L
Creatinine 0.4 L
Glucose 176 H
Calcium 8.2 L
Total Bilirubin 1.2
AST 70 H
ALT 35
Alkaline Phosphatase 109
Vital Signs:
Vital Signs
Temp Pulse Resp BP Pulse Ox
98 F 108 18 135/99 95
10/14/24 11:12 10/14/24 11:17 10/14/24 11:17 10/14/24 11:12 10/14/24 11:17
I&O
10/13/24 10/14/24 10/15/24
06:59 06:59 06:59
Intake Total 300 / 300 4010 / 4010
Balance 300 / 300 4010 / 4010
Review of Systems
-
History Source: Patient
All other systems: Reviewed and negative
--- NOTE | 2024-10-14 14:55 | CS.PSYCHR ---
Consult Summary - Psychiatry
-
Pt is a 48 yo female with history of alcohol abuse, who presented with epigastric pain and vomiting after recent relapse on vodka after 9 months sober. Pt reported her symptoms are similar to past episodes of pancreatitis. Psychiatry asked to eval
for depression and alcohol use. Pt seen sitting up in bed, c/o pain, c/o she can't get comfortable, wants her inhaler and her vape. Affect tearful, mood irritable. Pt denies SI.
Psych Hx: pt reports treatment for depression on and off for years; last prescribed Duloxetine which she states did not help
denies hx of inpatient treatment
Pt was in alcohol rehab in early December 2023, was reportedly sober for about 9 months, recently relapsed
Pt denies hx of withdrawal seizure or DT's
SH: non-contributory
MSE: alert, oriented, limited cooperation with interview, c/o pain. Affect regressed, tearful. Mood irritable, dysphoric. Speech coherent, thought clear, somewhat rambling. No signs of psychosis. Insight limited
Imp: Alcohol Use d/o
Unspecified depressive d/o
Rec: Continue MSAS for alcohol withdrawal risk. Would not introduce a new antidepressant at this point due to pt's medical status
Outpatient treatment- therapy and med mgt- when medically stabilized
Will follow loosely
[2024-10-14 15:46] VITALS: BP 135/98
[2024-10-14] MEDS: ProAIR HFA INHALER 2 PUFF INH (16:47)
[2024-10-14] MEDS: ZOFRAN 4 MG IV (17:17)
[2024-10-14 19:21] VITALS: BP 130/94
[2024-10-14] MEDS: KCL 20 MEQ PO (20:20)
[2024-10-14] MEDS: COMPAZINE 5 MG IV (20:28)
[2024-10-14 23:16] VITALS: BP 124/85
[2024-10-15] VITALS (7 sets, daily range): BP systolic 125–155; BP diastolic 86–115
--- NOTE | 2024-10-15 00:07 | W.PN.UPDATE ---
Update Note
Progress Note Update
-New onset of fever, tachycardia, hr in 130s.
-Stat orders of CBC, BMP, mag, lactic acid, urinalysis, and blood cultures.
-Electrolytes repleted as needed.
-Patient is lethargic, giving scenario of cute gastritis and Enterocolitis and possible dehydration due etoh gastritis will start the patient on IVF/LR @80cc/hr.
[2024-10-15 01:04] LABS: Blood Urea Nitrogen < 2 mg/dl (7-17); Calcium 8.1 mg/dl (8.4-10.2); Carbon Dioxide 33 mmol/L (22-30); Chloride 92 mmol/L (98-107); Estimated Creatinine Clearance 104 ml/min; Glucose 140 mg/dl (70-99); Magnesium 1.9 mg/dl (1.6-2.3); Potassium 2.8 mmol/L (3.5-5.1); Sodium 129 mmol/L (135-145); eGFR > 60.00
[2024-10-15 01:05] LABS: Lactic Acid 1.4 mmol/L (0.7-2.0)
[2024-10-15 01:15] LABS: Hemoglobin 11.4 g/dL (12.0-16.0); Mean Corp Hgb Conc. 36.8 g/dL (33.0-37.0); Mean Corpuscular Hgb 32.6 pg (27.0-31.0); Mean Corpuscular Volume 88.6 fL (81.0-99.0); Mean Platelet Volume 9.5 fL (7.4-10.4); Platelet Count 53 10^3/uL (130-400); Red Cell Dist. Width 16.6 % (11.5-14.5); White Blood Cell Count 4.5 10^3/uL (4.8-10.8)
[2024-10-15] MEDS: ATIVAN 1 MG IV (02:13)
[2024-10-15] MEDS: CALCIUM GLUCONATE 100 IV (02:14)
[2024-10-15] MEDS: LR 1000 IV ×2 (02:15→14:34)
[2024-10-15] MEDS: KCL 40 MEQ PO (02:16)
[2024-10-15 04:11] LABS: Urine Albumin Negative (Neg - Trace); Urine Bilirubin Negative (Negative); Urine Character Clear (Clear); Urine Color Yellow; Urine Glucose Negative (Negative); Urine Ketone Negative (Negative); Urine Leukocyte Negative (Negative); Urine Nitrite Negative (Negative); Urine Occult Blood Negative (Negative); Urine Urobilinogen 2+ (Neg - 1+)
[2024-10-15] MEDS: ProAIR HFA INHALER 2 PUFF INH ×3 (08:01→23:11)
[2024-10-15] MEDS: ATIVAN 1 MG PO ×3 (08:15→23:44)
[2024-10-15] MEDS: KCL 20 MEQ PO ×2 (09:04→21:12)
[2024-10-15] MEDS: LIBRIUM 25 MG PO ×3 (09:04→21:12)
[2024-10-15] MEDS: NEUTRA-PHOS POWDER PACKET 250 MG PO ×4 (09:05→21:13)
[2024-10-15] MEDS: NSS (PRESERVATIVE FREE) 10 ML IV (09:05)
[2024-10-15] MEDS: THIAMINE INJECTION 200 MG IV ×2 (09:05→19:40)
[2024-10-15] MEDS: PROTONIX IV 40 MG IV (09:05)
[2024-10-15] MEDS: FOLVITE 1 MG PO (09:06)
[2024-10-15 09:09] LABS: % Basophils 0.5 % (0-2); % Eosinophils 2.4 % (0-6); % Immature Granulocytes 0.5 % (0-0.5); % Lymphocytes 25.1 % (20.5-51.1); % Monocytes 6.7 % (1.7-9.3); % Neutrophils 64.8 % (42.2-75.2); Absolute Eosinophils 0.1 10^3/uL (0-0.7); Absolute Lymphocytes 0.9 10^3/uL (1.2-3.4); Absolute Monocytes 0.3 10^3/uL (0.1-0.6); Absolute Neutrophils 2.4 10^3/uL (1.4-6.5); Hematocrit 36.1 % (37.0-47.0); Hemoglobin 13.1 g/dL (12.0-16.0); Mean Corp Hgb Conc. 36.3 g/dL (33.0-37.0); Mean Corpuscular Hgb 32.3 pg (27.0-31.0); Mean Corpuscular Volume 88.9 fL (81.0-99.0); Mean Platelet Volume 10.1 fL (7.4-10.4); Nucleated Red Blood Cells % 0 %; Platelet Count 57 10^3/uL (130-400); Red Blood Cell Count 4.06 10^6/uL (4.20-5.40); Red Cell Dist. Width 16.8 % (11.5-14.5); White Blood Cell Count 3.7 10^3/uL (4.8-10.8)
[2024-10-15 09:11] LABS: ALT (SGPT) 80 U/L (0-35); AST (SGOT) 179 U/L (14-36); Albumin 3.9 g/dl (3.5-5.0); Alkaline Phosphatase 135 U/L (38-126); Blood Urea Nitrogen < 2 mg/dl (7-17); Carbon Dioxide 36 mmol/L (22-30); Chloride 93 mmol/L (98-107); Estimated Creatinine Clearance 104 ml/min; Glucose 124 mg/dl (70-99); Phosphorus 1.5 mg/dl (2.5-4.5); Potassium 3.4 mmol/L (3.5-5.1); Sodium 134 mmol/L (135-145); Total Bilirubin 1.1 mg/dl (0.2-1.3); Total Protein 6.8 g/dl (6.3-8.2); eGFR > 60.00
--- NOTE | 2024-10-15 12:01 | W.PN.HOSP.TC ---
Today's Communication/Plan
-
COVID antigen
Procalcitonin
Check cultures
Replete electrolytes
Assessment / Plan
Assessment / Plan
Gen-AAOx3, NAD
HEENT-NC, AT, anicteric, clear oral mm
Neck-supple
CV-reg, no M, +S1/S2
Lungs-clear B/L
Abd-soft, NT, ND
Ext-no edema
Musculoskeletal-no cyanosis, clubbing
Skin-warm and dry
Neuro-grossly non-focal
Psych-calm, cooperative
Sepsis -unclear if present on admission. Temperature 100.8 �F last night, afebrile this morning. Looks nontoxic. Initial leukocytosis on presentation but now leukopenic. Cultures sent. Check COVID antigen. Hold antibiotics for now. Check
procalcitonin.
Acute alcohol withdrawal syndrome -improving on current regimen of Librium and as needed Ativan. Continue folic acid, thiamine.
Acute gastritis and Enterocolitis- Suspect etoh gastritis with marked dehydration. Likely developed ketoacidosis prior to vomiting given minimal concomitant alkalosis.
- IV ppi
- antiemetics, pain control
- Advance to regular diet
- CT abd/pelvis w/Mild bowel wall thickening involving several loops of distal small bowel and the proximal colon, suggestive of mild enterocolitis.
Anion gap metabolic acidosis -due to alcoholic ketoacidosis, starvation. Acidosis resolved. Bicarb 36.
Hypovolemia - no fluid or dietary intake x 4 days, tachycardia, elevated urine SG
- IV fluids as above
Hypokalemia/hypomagnesemia/hypophosphatemia -continue repletion.
Transaminitis - unremarkable gall bladder and ducts. Chronic pancreatitis. Fatty liver. AST/ALT all c/w alcoholic liver disease w/o cirrhosis
- trend
Severe alcohol use disorder -underlying depression. Appreciate psychiatry input.
Mild hyponatremia -improving.
Pancytopenia likely secondary to alcohol abuse
-Trend CBC follow
No signs of iron deficiency. B12 and folic acid normal.
Chronic pancreatitis Likely secondary to alcohol abuse
-Monitor symptoms for now.
DVT PPX -SCDs for now.
Full code
Anticipated Discharge: 24 - 48 hours
Subjective/Interval History
-
Date of Service: October 15, 2024
Patient seen/examined. Hysterical, crying, asking for discharge.
Objective Data
-
Labs:
Laboratory Results
10/15/24 10/15/24
00:38 08:26
WBC 4.5 L 3.7 L
Hgb 11.4 L 13.1
Hct 31.0 L 36.1 L
Plt Count 53 L 57 L
Sodium 129 L 134 L
Potassium 2.8 L 3.4 L
Chloride 92 L 93 L
Carbon Dioxide 33 H 36 H
BUN < 2 L < 2 L
Creatinine 0.4 L 0.4 L
Glucose 140 H 124 H
Calcium 8.1 L 9.0
Total Bilirubin 1.1
AST 179 H
ALT 80 H
Alkaline Phosphatase 135 H
Vital Signs:
Vital Signs
Temp Pulse Resp BP Pulse Ox
98.8 F 102 18 147/90 98
10/15/24 08:05 10/15/24 08:06 10/15/24 08:06 10/15/24 08:05 10/15/24 10:19
I&O
10/14/24 10/15/24 10/16/24
06:59 06:59 06:59
Intake Total 4010 / 4010 950 / 950
Balance 4010 / 4010 950 / 950
Review of Systems
-
History Source: Patient
All other systems: Reviewed and negative
[2024-10-15 13:57] LABS: Procalcitonin 1.05 ng/ml (0.0-0.25)
--- NOTE | 2024-10-15 15:09 | CM ---
Patient seen by psychiatry.
rec outpatient tx
Fever last evening
Covid pending, labs, cx
IV fluids
Declined [facility]
PLAN: Continue to follow, home no needs, decline [facility]
[2024-10-15 15:22] LABS: COVID-19 Antigen Negative (Negative)
[2024-10-15] MEDS: ZOFRAN 4 MG IV (19:41)
[2024-10-16] MEDS: MORPHINE SULFATE 2 MG IV (00:59)
[2024-10-16 03:00] VITALS: BP 141/89
[2024-10-16] MEDS: LR 1000 IV (04:20)
[2024-10-16 07:30] VITALS: BP 132/78
[2024-10-16 07:50] LABS: ALT (SGPT) 85 U/L (0-35); AST (SGOT) 154 U/L (14-36); Albumin 3.1 g/dl (3.5-5.0); Alkaline Phosphatase 99 U/L (38-126); Blood Urea Nitrogen < 2 mg/dl (7-17); Calcium 8.2 mg/dl (8.4-10.2); Carbon Dioxide 29 mmol/L (22-30); Chloride 97 mmol/L (98-107); Estimated Creatinine Clearance 104 ml/min; Glucose 139 mg/dl (70-99); Magnesium 1.7 mg/dl (1.6-2.3); Potassium 3.4 mmol/L (3.5-5.1); Sodium 133 mmol/L (135-145); Total Bilirubin 0.4 mg/dl (0.2-1.3); Total Protein 5.6 g/dl (6.3-8.2); eGFR > 60.00
[2024-10-16] MEDS: NSS (PRESERVATIVE FREE) 10 ML IV (08:56)
[2024-10-16] MEDS: PROTONIX IV 40 MG IV (08:56)
[2024-10-16] MEDS: KCL 20 MEQ PO (08:56)
[2024-10-16] MEDS: NEUTRA-PHOS POWDER PACKET 250 MG PO (08:56)
[2024-10-16] MEDS: VITAMIN B1 100 MG PO (08:56)
[2024-10-16] MEDS: LIBRIUM 25 MG PO (08:57)
[2024-10-16] MEDS: FOLVITE 1 MG PO (08:57)
[2024-10-16] MEDS: ProAIR HFA INHALER 2 PUFF INH (09:42)
[2024-10-16 11:18] VITALS: BP 103/87
[2024-10-16] MEDS: KCL 40 MEQ PO (11:55)
--- NOTE | 2024-10-16 12:10 | W.DS.TRANS ---
DC Summary - [place]
-
Discharge Instructions:
Discharge Diagnosis/Procedures Electrolyte abnormalities, alcohol withdrawal
syndrome
Diet Regular
Activity As tolerated
Driving Restrictions No driving while you are taking Librium
Bathing Restrictions None
Blood Work BMP next week
Instructions:
Stand-Alone Forms:
Changes to Home Medications: No
Discharge Medications:
DC Medications w/original date entered in [employer]
albuterol sulfate 90 mcg inhalation 4-8XD Lung/Breathing Issues 10/13/24
chlordiazepoxide HCl 25 mg capsule 25 mg PO TID #6 caps 10/16/24
folic acid 1 mg tablet 1 mg PO DAILY #30 tabs 10/16/24
potassium chloride 20 mEq tablet,extended release(part/cryst) 20 meq PO BID #20 tabs 10/16/24
thiamine HCl (vitamin B1) 100 mg tablet 100 mg PO BID #60 tabs 10/16/24
Home Medication Changes
Pending Results: No
--- NOTE | 2024-10-16 12:10 | W.PN.HOSP.TC ---
Today's Communication/Plan
-
Discharge
Assessment / Plan
Assessment / Plan
Gen-AAOx3, NAD
HEENT-NC, AT, anicteric, clear oral mm
Neck-supple
CV-reg, no M, +S1/S2
Lungs-clear B/L
Abd-soft, NT, ND
Ext-no edema
Musculoskeletal-no cyanosis, clubbing
Skin-warm and dry
Neuro-grossly non-focal
Psych-calm, cooperative
Sepsis -unclear if present on admission. No further fevers. Looks nontoxic. Initial leukocytosis on presentation but now leukopenic. No evidence of UTI. Blood cultures negative so far. COVID-negative. Unclear significance of elevated
procalcitonin. Hold antibiotics.
Acute alcohol withdrawal syndrome -improving on current regimen of Librium and as needed Ativan. Continue folic acid, thiamine.
Acute gastritis and Enterocolitis- Suspect etoh gastritis with marked dehydration. Likely developed ketoacidosis prior to vomiting given minimal concomitant alkalosis.
- IV ppi
- CT abd/pelvis w/Mild bowel wall thickening involving several loops of distal small bowel and the proximal colon, suggestive of mild enterocolitis.
Tolerating solids.
Anion gap metabolic acidosis -due to alcoholic ketoacidosis, starvation. Acidosis resolved.
Hypovolemia -resolved.
Hypokalemia/hypomagnesemia/hypophosphatemia -improving overall. Continue potassium supplements.
Transaminitis - unremarkable gall bladder and ducts. Chronic pancreatitis. Fatty liver. AST/ALT all c/w alcoholic liver disease w/o cirrhosis. Component of acute alcoholic hepatitis possible.
Severe alcohol use disorder -underlying depression. Appreciate psychiatry input. Patient not interested in alcohol rehab.
Mild hyponatremia -improving.
Pancytopenia likely secondary to alcohol abuse
-Trend CBC follow
No signs of iron deficiency. B12 and folic acid normal.
Chronic pancreatitis Likely secondary to alcohol abuse
-Monitor symptoms for now.
DVT PPX -SCDs for now.
Full code
Dispo -stable for discharge today. Needs to get a PCP. Needs labs done next week.
35 minutes spent in discharge process.
Anticipated Discharge: Today
Subjective/Interval History
-
Date of Service: October 16, 2024
Patient seen and examined. Feeling better overall. Tolerating diet.
Objective Data
-
Labs:
Laboratory Results
10/16/24
07:16
Sodium 133 L
Potassium 3.4 L
Chloride 97 L
Carbon Dioxide 29
BUN < 2 L
Creatinine 0.4 L
Glucose 139 H
Calcium 8.2 L
Total Bilirubin 0.4
AST 154 H
ALT 85 H
Alkaline Phosphatase 99
Vital Signs:
Vital Signs
Temp Pulse Resp BP Pulse Ox
98.1 F 113 18 103/87 99
10/16/24 11:18 10/16/24 11:18 10/16/24 11:18 10/16/24 11:18 10/16/24 11:18
I&O
10/15/24 10/16/24 10/17/24
06:59 06:59 06:59
Intake Total 950 / 950 2980 / 2980
Balance 950 / 950 2980 / 2980
Review of Systems
-
History Source: Patient
All other systems: Reviewed and negative
--- NOTE | 2024-10-16 12:16 | W.DS.TRANS ---
DC Summary - [employer]
-
Discharge Instructions:
Discharge Diagnosis/Procedures Electrolyte abnormalities, alcohol withdrawal
syndrome
Diet Regular
Activity As tolerated
Driving Restrictions No driving while you are taking Librium
Bathing Restrictions None
Blood Work BMP next week
Instructions:
Stand-Alone Forms:
Changes to Home Medications: No
Discharge Medications:
DC Medications w/original date entered in [employer]
albuterol sulfate 90 mcg inhalation 4-8XD Lung/Breathing Issues 10/13/24
chlordiazepoxide HCl 25 mg capsule 25 mg PO TID #6 caps 10/16/24
folic acid 1 mg tablet 1 mg PO DAILY #30 tabs 10/16/24
pantoprazole 40 mg tablet,delayed release (Protonix) 40 mg PO DAILY #30 tabs 10/16/24
potassium chloride 20 mEq tablet,extended release(part/cryst) 20 meq PO BID #20 tabs 10/16/24
thiamine HCl (vitamin B1) 100 mg tablet 100 mg PO BID #60 tabs 10/16/24
Home Medication Changes
Pending Results: No
== END 2024-10-16 14:48 | disposition home or self-care (01) | DRG 391 ==
LOC: 2 NORTH 23:01
PROVIDERS: Emergency Medicine; Hospitalist; Nurse Practitioner Family; Physician Assistant Medical; ADMITTING PHYSICIAN Internal Medicine; ATTENDING PHYSICIAN Hospitalist; CONSULT PHYSICIAN Psychiatry & Neurology Psychiatry; EMERGENCY PHYSICIAN Emergency Medicine
DX: K29.20 Alcoholic gastritis without bleeding (principal); A41.9 Sepsis, unspecified organism; E87.29 Other acidosis; F10.130 Alcohol abuse with withdrawal, uncomplicated; D61.818 Other pancytopenia; K86.0 Alcohol-induced chronic pancreatitis; E87.1 Hypo-osmolality and hyponatremia; K70.10 Alcoholic hepatitis without ascites; J45.909 Unspecified asthma, uncomplicated; K27.9 Peptic ulcer, site unspecified, unspecified as acute or chronic, without hemorrhage or perforation; F32.A Depression, unspecified; F41.9 Anxiety disorder, unspecified; E83.39 Other disorders of phosphorus metabolism; E83.42 Hypomagnesemia; E87.6 Hypokalemia; E86.1 Hypovolemia; E86.0 Dehydration; Z87.11 Personal history of peptic ulcer disease; Z41.9 Encounter for procedure for purposes other than remedying health state, unspecified; Z11.52 Encounter for screening for COVID-19
CPT/HCPCS: 74177; 76700; 80048; 80053; 80179; 80306; 81003; 82077; 82607; 82728; 82746; 82805; 82977; 83540; 83550; 83605; 83690; 83735; 83930; 84100; 84145; 85025; 85027; 85610; 87040; 87811; 93005; 94640; 96361; 96365; 96366; 96375; 96376; 99291; Q9967

== ENCOUNTER 2025-01-10 22:12 | Inpatient (IN) | payer OTHER, SELFPAY ==
[2025-01-10 19:17] VITALS: BP 148/108
[2025-01-10 20:19] VITALS: BMI 24.2
--- NOTE | 2025-01-10 20:20 | ED.GENMED ---
History of Present Illness
General
Chief Complaint: Alcohol Problem
Source: patient
Exam Limitations: none
Time Seen by Provider: 01/10/25 20:08
History of Present Illness
History of Present Illness:
49yoF with a history of alcohol use, asthma, and anxiety presenting with her friend for detox evaluation. Patient admits to heavy daily alcohol use and drinks 10 shots of vodka daily. Friend states she drinks more than this and drinks continuously
throughout the day. She will start to have tremors if she goes more than 30 minutes-1 hour without drinking. Her last drink was about 2 hours ago. She reports severe anxiety, nausea, and tremors which are consistent with her previous withdrawal
episodes. She is here requesting detox. No prior history of withdrawal seizures.
Past History
Past History
ED Past Medical History: Psychiatric (anxiety)
Phy Exam
General Physical Exam
General Presentation: moderate distress
General Skin: warm and dry
General Mental: anxious
ENT Exam
ENT Exam: normocephalic
Cardiovascular Exam
Cardiovascular Exam: tachycardia
Pulmonary Exam
Pulmonary Exam: lungs clear, no respiratory distress, no rales, no crackles and no rhonchi
Neurological Exam
Neurological Exam: alert and other (Upper extremity tremors)
Mejia Coma Scale
Eye Opening: Spontaneous
Verbal Response: Oriented
Motor Response: Obeys Commands
GCS Total Score: 15
Skin Exam
Skin Exam: normal color and warm/dry
Psychiatric Exam
Psychiatric Exam: anxious
Scores
Withdrawal Assessment of Alcohol
Withdrawal Assessment Completed?: Not applicable
Course
Orders/Labs/Results
Orders:
Orders
01/10/25 19:20
Electrocardiogram (*1) Urgent
Reason for Study: Tachycardia
EKG- Treatment ONCE
01/10/25 20:16
Cardiac Monitoring- Treatment ONCE
0.9% Sodium Chloride 1000 ml [Nss] 1,000 ml IV BOLUS
Lorazepam [Ativan] 2 mg IV NOW STA
Test Result ONCE
01/10/25 20:23
Alcohol Urgent
Complete Blood Count/With Diff Urgent
Comprehensive Metabolic Panel Urgent
HCG, Serum Qualitative Screen Urgent
Magnesium Urgent
Abnormal Lab Results
01/10/25
20:23
RBC 5.50 H 10^6/uL
(4.20-5.40)
Hgb 16.5 H g/dL
(12.0-16.0)
Plt Count 71 L 10^3/uL
(130-400)
Absolute Monos (auto) 0.7 H 10^3/uL
(0.1-0.6)
Monocytes % 12.2 H %
(1.7-9.3)
Chloride 90 L mmol/L
(98-107)
Glucose 131 H mg/dl
(70-99)
Total Bilirubin 1.7 H mg/dl
(0.2-1.3)
AST 430 H U/L
(14-36)
ALT 178 H U/L
(0-35)
Alkaline Phosphatase 172 H U/L
(38-126)
Total Protein 8.6 H g/dl
(6.3-8.2)
Albumin 5.1 H g/dl
(3.5-5.0)
01/10/25 20:23
01/10/25 20:23
Vital Signs
Initial and Last Documented VS:
Initial Vital Signs
Temp Pulse Resp BP Pulse Ox
98.1 F 138 16 148/108 97
01/10/25 19:17 01/10/25 19:17 01/10/25 19:17 01/10/25 19:17 01/10/25 19:17
Last Documented Vital Signs
Temp Pulse Resp BP Pulse Ox
98.1 F 123 19 128/88 98
01/10/25 19:17 01/10/25 21:30 01/10/25 21:30 01/10/25 21:00 01/10/25 21:30
MDM/Problems Addressed
Differential Diagnosis Includes:
49yoF here requesting alcohol detox. Drinks 10+ shots of vodka daily. Last drink 2 hours ago. C/o nausea, anxiety, tremors. Patient severely anxious on exam with tremors. Heart rate in the 140s. Differential diagnosis includes but is not limited
to: Alcohol withdrawal, alcohol intoxication, dehydration, electrolyte abnormality
Initial ED plan: Check CBC, CMP, magnesium, and EKG. 2 mg IV Ativan and IV fluid bolus ordered.
*EKG
Interpreted by ED Provider?: Yes
EKG Intrepretation Date: 01/10/25
Heart Rate: 134
Rate: tachycardiac
Rhythm: sinus
Interval: normal interval
QRS Pattern: low voltage
Ischemia: no ischemia
*Critical Care Note
Total Time (30-74mins, 75-104mins- exclusive of procedures): Not Applicable
Update Note
Update Note:
Labs reveal transaminitis with AST to ALT ratio of 2:1 consistent with alcohol use. Chloride 90, remainder of electrolytes are normal. HR improved to 120s after Ativan administration. [facility] consulted and patient unable to be placed until at
least next week due to insurance issues. Will admit for further management.
ED Attending Note
-
Portions of this chart may have been created with voice recognition software.� Occasional wrong word or��sound alike� substitutions may have occurred due to the inherent limitations of voice recognition software.
Discharge Plan
Departure
Patient Disposition: Admit
Date of Disposition: 01/10/25
Time of Disposition: 21:37
Presentation/result/management discussed w/ accepting MD/DO: Hospitalist
Discharge Problem:
Alcohol withdrawal
Prescriptions:
No Action
folic acid 1 mg Tablet
1 mg PO DAILY Qty: 30 0RF
potassium chloride 20 mEq Tablet,Er Particles/Crystals
20 meq PO BID Qty: 20 0RF
chlordiazepoxide HCl 25 mg Capsule
25 mg PO TID Qty: 6 0RF
Rx Instructions:
1 cap 3x/day on day 1, 1 cap 2x/day on day 2, 1 cap 1x/day on day 3 then stop.
thiamine HCl (vitamin B1) 100 mg Tablet
100 mg PO BID Qty: 60 0RF
pantoprazole [Protonix] 40 mg tablet,delayed release (DR/EC)
40 mg PO DAILY Qty: 30 0RF
albuterol sulfate 90 mcg/actuation HFA aerosol inhaler
2 puff inhalation 6XD PRN (Reason: shortness of breath or wheezing) Qty: 8.5 0RF
Referrals:
NONE,* [Family Provider] -
Interventions
Interventions:
*Risk Screen - Suicide Last Done: 01/10/25 19:20
*General Assessment Last Done: 01/10/25 19:35
*Neglect/Abuse Screening Last Done: 01/10/25 19:20
*ED COVID-19 Vaccine History Last Done: 01/10/25 20:36
ED- Neurological Assessment Last Done: 01/10/25 20:19
ED-Psychological Assessment Last Done: 01/10/25 20:36
Discharge Date and Time
Print Language: [place]ESE
[2025-01-10] MEDS: NSS 1000 IV (20:24)
[2025-01-10] MEDS: ATIVAN 2 MG IV (20:24)
[2025-01-10 20:39] LABS: % Basophils 0.7 % (0-2); % Eosinophils 0.5 % (0-6); % Immature Granulocytes 0.2 % (0-0.5); % Lymphocytes 33.2 % (20.5-51.1); % Monocytes 12.2 % (1.7-9.3); % Neutrophils 53.2 % (42.2-75.2); Absolute Lymphocytes 1.8 10^3/uL (1.2-3.4); Absolute Monocytes 0.7 10^3/uL (0.1-0.6); Absolute Neutrophils 2.9 10^3/uL (1.4-6.5); Hematocrit 45.1 % (37.0-47.0); Hemoglobin 16.5 g/dL (12.0-16.0); Mean Corp Hgb Conc. 36.6 g/dL (33.0-37.0); Nucleated Red Blood Cells % 0 %; Red Cell Dist. Width 12.3 % (11.5-14.5); White Blood Cell Count 5.5 10^3/uL (4.8-10.8)
[2025-01-10 20:42] LABS: HCG, Serum Qualitative Screen Negative
[2025-01-10 20:46] LABS: ALT (SGPT) 178 U/L (0-35); AST (SGOT) 430 U/L (14-36); Albumin 5.1 g/dl (3.5-5.0); Alkaline Phosphatase 172 U/L (38-126); Blood Urea Nitrogen 12 mg/dl (7-17); Calcium 9.9 mg/dl (8.4-10.2); Carbon Dioxide 28 mmol/L (22-30); Chloride 90 mmol/L (98-107); Estimated Creatinine Clearance 103 ml/min; Glucose 131 mg/dl (70-99); Magnesium 1.8 mg/dl (1.6-2.3); Potassium 3.6 mmol/L (3.5-5.1); Sodium 135 mmol/L (135-145); Total Bilirubin 1.7 mg/dl (0.2-1.3); Total Protein 8.6 g/dl (6.3-8.2); eGFR > 60.00
[2025-01-10 20:54] VITALS: BP 128/86
[2025-01-10 20:54] LABS: Mean Platelet Volume 10.4 fL (7.4-10.4); Platelet Count 71 10^3/uL (130-400)
[2025-01-10 20:56] LABS: Alcohol 306 mg/dl
[2025-01-10 21:00] VITALS: BP 128/88
[2025-01-10 22:00] VITALS: BP 112/77
--- NOTE | 2025-01-10 22:00 | PHANOTE ---
med rec tech(01/10/25)-Patient unable to be interviewed, friend at bedside does not know the medications she was taking. No [facility] records or [facility] records, will leave medications from previous admission unconfirmed on list.
--- NOTE | 2025-01-10 22:14 | HPS.HSE ---
Addendum entered and electronically signed by Neville Valladares DO 01/10/25 22:34:
Patient seen and examined independently. Agree with findings and plan as set forth by Sadaf Ryan PA-C.
Patient is a 49y F with PMH significant for alcohol use disorder who presents to ED complaining of alcohol disorder / seeking detox evaluation. History obtained from friend at the bedside as patient is currently sedated. Patient with prior
history of alcohol use disorder and multiple rehab stays. She was most recently in rehab until mid-November but started to drink again shortly after discharge. Friend notes that patient is drinking 'around the clock' and begins to become anxious
and tremulous within an hour or less from her last drink. Patient had a drink just prior to arrival this evening. In the ED, she was noted to be anxious and tremulous and was given a dose of IV Ativan. She is currently resting / sedated. She
does open eyes to name / stimuli - but falls quickly back to sleep and does not answer questions or follow commands.
Ass:
Alcohol Use Disorder with Withdrawal
Anion Gap Metabolic Acidosis
Alcoholic Hepatitis
Thrombocytopenia - Chronic and Likely Secondary to EtOH
Plan:
Admit to IMU for further evaluation and treatment.
Check UDS
Phenobarbital taper and MSAS protocol with Ativan as needed.
IVFs / supportive care.
Follow for clinical improvement.
Would encourage repeat inpatient EtOH rehab stay following this hospitalization.
Original Note:
Family Physician
-
Family Physician: * NONE
Chief Complaint
-
Alcohol Problem
History of Present Illness
Patient is a 49 y/o female past medical history of anxiety, and alcohol use disorder who presents for detox evaluation. Patient was brought in by her friend to worsen alcohol abuse. Upon my evaluation patient is unable to provide much history
following dose of Ativan given in the emergency department. Patient's friend reports patient begins to develop tremors is she goes more than an hour without drinking. Friend expresses concern that patient has not consumed any food in about a week,
and that she is drinking alcohol constantly. Patient was recently discharge from an alcohol program on December 04. According to the friend patient was sober for a few weeks but notes patient was drinking [birth year] her [birth year] which is [birth year].
Medical History
Past Medical History
Past Medical History: Reports Other
Additional Past Medical History:
Asthma
Peptic Ulcer Disease
Anxiety/Depression
Alcohol Use Disorder
Past Surgical History: Reports None
Social History
Tobacco: Vaping
Alcohol: Chronic Alcoholic (Multiple alcohol rehab stays in the past year. Currently drinking at least 10 shots of vodka per day)
Family History
Family History: Not pertinent
Allergies / Home Medications
Allergies reflects when Allergies were last updated in [facility].
Home Medications with original date entered in [facility]
Allergy/Medication List:
Allergies
Allergy/AdvReac Type Severity Reaction Status Date / Time
codeine Allergy Vomiting Verified 10/12/24 18:28
Home Medications
albuterol sulfate 90 mcg/actuation aerosol inhaler 2 puff inhalation 6XD PRN shortness of breath or wheezing #8.5 grams 10/16/24
folic acid 1 mg tablet 1 mg PO DAILY #30 tabs 10/16/24
pantoprazole 40 mg tablet,delayed release (Protonix) 40 mg PO DAILY #30 tabs 10/16/24
potassium chloride 20 mEq tablet,extended release(part/cryst) 20 meq PO BID #20 tabs 10/16/24
thiamine HCl (vitamin B1) 100 mg tablet 100 mg PO BID #60 tabs 10/16/24
Review of Systems
-
Unable to obtain full review of systems at this time due to: Acuity
Physical Exam
Vital Signs
Vital Signs
Temp Pulse Resp BP Pulse Ox
98.1 F 119 18 112/77 98
01/10/25 19:17 01/10/25 22:00 01/10/25 22:00 01/10/25 22:00 01/10/25 22:00
Physical Exam
General: Well Developed and Well Nourished
HEENT: NormoCephalic and Anicteric
Respiratory: Clear and Non Labored Respirations
Cardiac: S1/S2, Regular Rhythm and Tachycardia
GI: Soft and Non Tender
Rectal: Deferred by Provider
Musculoskeletal: No Clubbing, No Cyanosis and No Edema
Skin: Warm and Dry
Neuro: Other (Patient briefly opens her eyes but unable to participate in full neurologic evaluation); No Tremors
Laboratory Results
-
01/10/25 20:23
01/10/25 20:23
Laboratory Results
Total Bilirubin 1.7 mg/dl (0.2-1.3) H 01/10/25 20:23
AST 430 U/L (14-36) H 01/10/25 20:23
ALT 178 U/L (0-35) H 01/10/25 20:23
Alkaline Phosphatase 172 U/L (38-126) H 01/10/25 20:23
Data Reviewed
-
Lab Data: Labs Reviewed by me
Impression/Plan
-
Alcohol Use Disorder with Alcohol Withdrawal
-Patient is high risk for possible alcohol withdrawal seizure and delirium tremens
-Admit to IMU
-Start phenobarbital taper
-Continue Ativan based on MSAS
-Continue thiamine and folic acid
Alcoholic Hepatitis
-Continue to LFTS
Thrombocytopenia, likely related to alcohol
-Monitor platelet count
DVT proph: SCDs
Code Status: Full Code
[2025-01-10 22:28] LABS: Phosphorus 3.3 mg/dl (2.5-4.5)
[2025-01-10] MEDS: MAGNESIUM SULFATE 100 IV (22:57)
[2025-01-10 23:00] VITALS: BP 112/87
[2025-01-10 23:32] VITALS: BP 143/113
[2025-01-10 23:33] VITALS: BMI 24.2
[2025-01-10] MEDS: ATIVAN 1 MG IV (23:57)
[2025-01-11] VITALS (12 sets, daily range): BP systolic 99–139; BP diastolic 80–104; BMI 24.2
[2025-01-11] MEDS: PHENOBARBITAL 104 MG IV (00:04)
[2025-01-11] MEDS: LR 1000 IV ×4 (00:04→21:09)
--- NOTE | 2025-01-11 00:21 | PTCARENOTE ---
pt admitted from ED, pt is AAOx3, drowsy but easily arousable, able to answer all admission questions without issues. VSS. 96% on 3L NC. MSAS score 8 upon admission. significant tremors noted, some nausea, HR 120s, some sweating noted. IV ativan
given per DEC. IV mag running prior to admission to floor, IV fluids hung and IV phenobarb also infusing into right AC. pt is tearful at times talking about her drinking. positive environment maintained. anxious also at times. pt reassured. bed
alarm placed on patient just in case. pt oriented to new room, call jean baptiste within reach, care ongoing.
[2025-01-11] MEDS: ATIVAN 1 MG IV ×4 (05:37→22:07)
[2025-01-11] MEDS: NSS (PRESERVATIVE FREE) 0.25 ML IV (05:38)
[2025-01-11 05:45] LABS: INR 1.17; PT 15.2 Sec (11.4-14.6)
[2025-01-11 05:46] LABS: APTT 28.1 Sec (23.4-35.0)
[2025-01-11 06:00] LABS: Hematocrit 33.7 % (37.0-47.0); Mean Corp Hgb Conc. 35.6 g/dL (33.0-37.0); Mean Corpuscular Hgb 30.2 pg (27.0-31.0); Mean Corpuscular Volume 84.9 fL (81.0-99.0); Mean Platelet Volume 11.1 fL (7.4-10.4); Platelet Count 46 10^3/uL (130-400); Red Blood Cell Count 3.97 10^6/uL (4.20-5.40); Red Cell Dist. Width 12.3 % (11.5-14.5); White Blood Cell Count 4.6 10^3/uL (4.8-10.8)
[2025-01-11 06:11] LABS: Benzodiazepines Positive (Negative); Marijuana Positive (Negative)
[2025-01-11 06:12] LABS: Amphetamines Negative (Negative); Barbiturates Positive (Negative); Buprenorphine Negative (Negative); Cocaine Negative (Negative); Methadone Negative (Negative); Methamphetamines Negative (Negative); Opiates Negative (Negative); Phencyclidine Negative (Negative); Tricyclic Antidepressants Negative (Negative)
[2025-01-11 06:13] LABS: ALT (SGPT) 124 U/L (0-35); AST (SGOT) 259 U/L (14-36); Albumin 3.5 g/dl (3.5-5.0); Alkaline Phosphatase 113 U/L (38-126); Blood Urea Nitrogen 13 mg/dl (7-17); Calcium 8.4 mg/dl (8.4-10.2); Carbon Dioxide 25 mmol/L (22-30); Chloride 97 mmol/L (98-107); Estimated Creatinine Clearance 103 ml/min; GGTP 446 U/L (12-43); Glucose 89 mg/dl (70-99); Magnesium 1.8 mg/dl (1.6-2.3); Phosphorus 4.2 mg/dl (2.5-4.5); Potassium 3.2 mmol/L (3.5-5.1); Sodium 135 mmol/L (135-145); Total Bilirubin 1.6 mg/dl (0.2-1.3); Total Protein 5.8 g/dl (6.3-8.2); eGFR > 60.00
[2025-01-11 06:37] LABS: Fentanyl, Urine Negative (Negative)
--- NOTE | 2025-01-11 08:15 | W.PN.HOSP.TC ---
Today's Communication/Plan
-
See PN
Assessment / Plan
Assessment / Plan
49yo F with PMHx of alcohol abuse, chronic paancreatitis, asthma, anxiety came with c/o generalized feeling unwell, nausea and vomiting since she was drinking daily for the past months and requesting detox.
A/P:
#Alcohol abuse with withdrawal
#Polysubstance abuse
watch for DT
Thiamine/FOlate
Phenobarb taper
MSAS with ativan
Utox: positive for barbiturates, BZD and maarijuana
#Transaminitis
#Mild bilirubin elevation
#FAtty liver disease
INR WNL
No RUQ pain
follow LFT
US RUQ pending
#Chronic pancreatitis
check lipase
#Thrombocytopenia
#Mild leukopenia
2/2 alcohol abuse
follow CBC
#Hypokalemia
replete and follow electrolytes
DVT ppx SCDs 2/2 thrombocytopenia
Full code
I have spent at least 58min reviewing chart, test results, and providing direct patientcare
Anticipated Discharge: > 48 hours
Subjective/Interval History
-
Date of Service: January 11, 2025
Objective Data
-
Labs:
Laboratory Results
01/10/25 01/11/25
20:23 05:26
WBC 5.5 4.6 L
Hgb 16.5 H 12.0 D
Hct 45.1 33.7 L
Plt Count 71 L 46 L D
PT 15.2 H
INR 1.17
APTT 28.1
Sodium 135 135
Potassium 3.6 3.2 L
Chloride 90 L 97 L
Carbon Dioxide 28 25
BUN 12 13
Creatinine 0.6 0.6
Glucose 131 H 89
Calcium 9.9 8.4 D
Total Bilirubin 1.7 H 1.6 H
AST 430 H 259 H
ALT 178 H 124 H
Alkaline Phosphatase 172 H 113
Vital Signs:
Vital Signs
Temp Pulse Resp BP Pulse Ox
98.1 F 119 16 128/88 97
01/11/25 07:40 01/11/25 06:00 01/11/25 06:00 01/11/25 06:00 01/11/25 06:00
Review of Systems
-
History Source: Patient
All other systems: Reviewed and negative
Physical Exam
-
General: No Apparent Distress
HEENT: Normocephalic
Cardiac: Regular Rhythm
GI: Soft, Nontender and Nondistended
Neuro: Awake, Alert, Oriented and Sedated
Psych: Calm
[2025-01-11 08:48] LABS: Direct Bilirubin 0.5 mg/dl (0.0-0.4); Lipase 42 U/L (23-300)
[2025-01-11] MEDS: POTASSIUM PHOSPHATE 259.0909 MEQ IV (08:54)
[2025-01-11] MEDS: PROTONIX IV 40 MG IV (08:55)
[2025-01-11] MEDS: NSS (PRESERVATIVE FREE) 10 ML IV (08:56)
[2025-01-11] MEDS: PHENOBARBITAL 97.5 MG IV ×3 (08:56→21:53)
[2025-01-11] MEDS: THIAMINE INJECTION 200 MG IV ×2 (08:56→21:09)
[2025-01-11] MEDS: MAGNESIUM OXIDE 500 MG PO ×2 (08:57→21:09)
[2025-01-11] MEDS: KCL 40 MEQ PO (08:57)
[2025-01-11] MEDS: NEURONTIN 300 MG PO ×3 (08:57→21:10)
[2025-01-11] MEDS: FOLVITE 1 MG PO (08:57)
--- NOTE | 2025-01-11 10:58 | W.PN.UPDATE ---
Update Note
Progress Note Update
Dilated bile duct noted on US - MRCP ordered
No overt cholelithiasis or RUQ pain, but with recent nausea - reasonable to start Zosyn until gall bladder or bile pathology excluded on MRI
[2025-01-11] MEDS: ZOSYN 50 IV ×2 (12:42→17:06)
[2025-01-11] MEDS: NSS (PRESERVATIVE FREE) 0.5 ML IV ×2 (13:41→14:44)
--- NOTE | 2025-01-11 14:33 | PTCARENOTE ---
Pt presents as assessed. Aox3, anxious and very tearful. Emotional support provided. ST on tele monitor. MSAS as documented; PRN Ativan administered per protocol. IVF infusing as ordered. Ringing appropriately at this time, call jean baptiste within reach.
Bed alarm in place for safety.
[2025-01-11] MEDS: ZOFRAN 4 MG IV (14:48)
--- NOTE | 2025-01-11 16:30 | CM ---
Spoke to patient. Her friends want her to go directly from to [facility] for treatment.
Referral made via phone to [facility] to call her monday and come see her monday to talk about inpatient options.
Patient states her insurance goes into effect on Monday.
Patient not medically stable for d/c .
CM to follow
[2025-01-11] MEDS: ATIVAN 1 MG PO (20:13)
[2025-01-11] MEDS: NSS (PRESERVATIVE FREE) 1 ML IV (22:08)
--- NOTE | 2025-01-11 23:21 | PTCARENOTE ---
Pt having moments of extreme anxiety and becoming tearful. Emotional support given. MSAS continued, medication given per order (see MAR). Call jean baptiste within reach.
[2025-01-12] VITALS (21 sets, daily range): BP systolic 104–138; BP diastolic 65–100
[2025-01-12] MEDS: ZOSYN 50 IV ×3 (00:55→11:36)
[2025-01-12] MEDS: LR 1000 IV (04:28)
[2025-01-12 05:02] LABS: % Basophils 0.5 % (0-2); % Eosinophils 3.6 % (0-6); % Immature Granulocytes 0.5 % (0-0.5); % Lymphocytes 28.7 % (20.5-51.1); % Monocytes 8.7 % (1.7-9.3); Absolute Eosinophils 0.1 10^3/uL (0-0.7); Absolute Lymphocytes 1.1 10^3/uL (1.2-3.4); Absolute Monocytes 0.3 10^3/uL (0.1-0.6); Absolute Neutrophils 2.3 10^3/uL (1.4-6.5); Hematocrit 32.7 % (37.0-47.0); Hemoglobin 11.7 g/dL (12.0-16.0); Mean Corp Hgb Conc. 35.8 g/dL (33.0-37.0); Mean Corpuscular Hgb 30.2 pg (27.0-31.0); Mean Corpuscular Volume 84.3 fL (81.0-99.0); Mean Platelet Volume 12.9 fL (7.4-10.4); Nucleated Red Blood Cells % 0 %; Platelet Count 83 10^3/uL (130-400); Red Blood Cell Count 3.88 10^6/uL (4.20-5.40); Red Cell Dist. Width 12.4 % (11.5-14.5); White Blood Cell Count 3.9 10^3/uL (4.8-10.8)
[2025-01-12 05:03] LABS: INR 1.09; PT 14.5 Sec (11.4-14.6)
[2025-01-12] MEDS: PROTONIX IV 40 MG IV (07:30)
[2025-01-12] MEDS: FOLVITE 1 MG PO (07:30)
[2025-01-12] MEDS: NEURONTIN 300 MG PO ×2 (07:30→16:28)
[2025-01-12] MEDS: PHENOBARBITAL 97.5 MG IV ×3 (07:30→21:20)
[2025-01-12] MEDS: NSS (PRESERVATIVE FREE) 10 ML IV (07:30)
[2025-01-12] MEDS: MAGNESIUM OXIDE 500 MG PO (07:30)
[2025-01-12] MEDS: THIAMINE INJECTION 200 MG IV ×2 (07:30→21:19)
[2025-01-12] MEDS: ATIVAN 2 MG IV ×7 (07:57→20:50)
--- NOTE | 2025-01-12 08:00 | PTCARENOTE ---
During AM assessment, patient very anxious, tachycardic, tearful, having hallucinations. While RN was scanning medications in DEC, patient used her own Albuterol inhaler from her purse. Patient educated that she is not able to use her own inhaler.
Inhaler sent to pharmacy and MD ordered Albuterol. Patient educated that if she feels like she needs her inhaler to let the staff members know and RT will come to bedside to complete with patient. Patient verbalized understanding. Patient denies
having any other medications with her. Care ongoing.
[2025-01-12] MEDS: ATARAX 25 MG PO (08:02)
[2025-01-12] MEDS: NSS (PRESERVATIVE FREE) 1 ML IV ×4 (10:10→16:38)
--- NOTE | 2025-01-12 10:26 | W.PN.HOSP.TC ---
Today's Communication/Plan
-
cont withdrawal mgmt
Added Atarax
MRCP pending, but still no RUQ pain
Assessment / Plan
Assessment / Plan
49yo F with PMHx of alcohol abuse, chronic paancreatitis, asthma, anxiety came with c/o generalized feeling unwell, nausea and vomiting since she was drinking daily for the past months and requesting detox. Managed for acohol withdrawal and also
found dilated CBD
A/P:
#Alcohol abuse with withdrawal
#Polysubstance abuse
watch for DT
Thiamine/FOlate
Phenobarb taper
MSAS with ativan
Utox: positive for barbiturates, BZD and marijuana
#Transaminitis
#Mild bilirubin elevation
#Fatty liver disease
#Dilated bile duct noted on US
MRCP ordered
No overt cholelithiasis or RUQ pain, but with recent nausea - reasonable to start Zosyn until gall bladder or bile pathology excluded on MRI
INR WNL
No RUQ pain
follow LFT
INR WNL
#Chronic pancreatitis
lipase WNL
#Thrombocytopenia
#Mild leukopenia
2/2 alcohol abuse
follow CBC
#Hypokalemia
replete and follow electrolytes
DVT ppx SCDs 2/2 thrombocytopenia
Full code
I have spent at least 58min reviewing chart, test results, and providing direct patient care
Anticipated Discharge: > 48 hours
Subjective/Interval History
-
Date of Service: January 12, 2025
Objective Data
-
Labs:
Laboratory Results
01/12/25 01/12/25 01/12/25
04:37 05:40 06:29
WBC 3.9 L
Hgb 11.7 L
Hct 32.7 L
Plt Count 83 L D
PT 14.5
INR 1.09
Sodium Cancelled Cancelled Pending
Potassium Cancelled Cancelled Pending
Chloride Cancelled Cancelled Pending
Carbon Dioxide Cancelled Cancelled Pending
BUN Cancelled Cancelled Pending
Creatinine Cancelled Cancelled Pending
Glucose Cancelled Cancelled Pending
Calcium Cancelled Cancelled Pending
Total Bilirubin Cancelled Cancelled Pending
AST Cancelled Cancelled Pending
ALT Cancelled Cancelled Pending
Alkaline Phosphatase Cancelled Cancelled Pending
Vital Signs:
Vital Signs
Temp Pulse Resp BP Pulse Ox
97.4 F 118 20 109/83 99
01/12/25 07:25 01/12/25 09:00 01/12/25 09:00 01/12/25 09:00 01/12/25 08:00
I&O
01/11/25 01/12/25 01/13/25
06:59 06:59 06:59
Intake Total 2170 / 2170 480 / 480
Balance 2170 / 2170 480 / 480
Review of Systems
-
History Source: Patient
All other systems: Reviewed and negative
Physical Exam
-
General: No Apparent Distress
HEENT: Normocephalic
GI: Soft, Nontender and Nondistended
Musculoskeletal: No Clubbing, No Cyanosis and No Edema
Neuro: Awake, Alert, Oriented, AO x 3 and Tremors
Psych: Confused and Anxious
[2025-01-12 11:20] LABS: ALT (SGPT) 103 U/L (0-35); AST (SGOT) 155 U/L (14-36); Alkaline Phosphatase 115 U/L (38-126); Blood Urea Nitrogen 6 mg/dl (7-17); Calcium 9.1 mg/dl (8.4-10.2); Carbon Dioxide 28 mmol/L (22-30); Chloride 95 mmol/L (98-107); Estimated Creatinine Clearance 103 ml/min; Glucose 142 mg/dl (70-99); Magnesium 1.6 mg/dl (1.6-2.3); Phosphorus 3.6 mg/dl (2.5-4.5); Potassium 3.6 mmol/L (3.5-5.1); Sodium 131 mmol/L (135-145); Total Bilirubin 1.8 mg/dl (0.2-1.3); Total Protein 6.3 g/dl (6.3-8.2); eGFR > 60.00
[2025-01-12] MEDS: MAGNESIUM SULFATE 102 GRAMS IV (11:37)
--- NOTE | 2025-01-12 15:30 | PTCARENOTE ---
Patient AOx1. Patient disoriented to time and place. Patient is forgetful, anxious, flat, tearful, and having visual hallucinations. Bed alarm on and audible. MSAS completed per order. PRN ativan provided to patient based off of MSAS score. Frequent
reorientation provided to patient. Patient on RA. Sinus tach on monitor. Patient having liquid brown stools. Poor appetite. Call jean baptiste within reach, bed in lowest position, and bed of wheels locked.
[2025-01-12] MEDS: MAGNESIUM OXIDE PO (21:20)
[2025-01-12] MEDS: NEURONTIN PO (21:20)
[2025-01-12] MEDS: ATIVAN 1 MG IV (21:50)
--- NOTE | 2025-01-12 22:54 | PTCARENOTE ---
Pt becoming very agitated and uncooperative at times. MASA done, medications given per order (see MAR). Pt response to medication positive. Vitals stable at this time. Bed alarm on. Pt room close to nursing station.
[2025-01-13] VITALS (46 sets, daily range): BP systolic 81–132; BP diastolic 60–113
[2025-01-13] MEDS: ATIVAN 1 MG IV ×2 (02:15→03:57)
[2025-01-13] MEDS: ATIVAN 2 MG IV ×3 (02:58→07:55)
[2025-01-13] MEDS: ProAIR HFA INHALER 2 PUFF INH (03:35)
[2025-01-13] MEDS: ATARAX 25 MG PO (03:48)
[2025-01-13] MEDS: PHENOBARBITAL 104 MG IV (04:00)
--- NOTE | 2025-01-13 04:25 | PTCARENOTE ---
Pt Continuing on MSAS scoring higher more frequently. Pt becoming more agitated and restless pulling things off and attempts to climb oob, and tearful. Reached out to DIRECTOR OF EMERGENCY NURSING orders placed for on time Atarax and Phenobarb pb. Pt stating she feels like
she is 'twisted up and dirty' Pt washed up with warm bath wipes and full bed change to help with anxiety. Reassessment Pt appearing to be sleeping. RR 19 even and unlabored, spo2 95%. Call jean baptiste within reach. Bed low and alarm on.
[2025-01-13 04:33] LABS: % Basophils 0.5 % (0-2); % Immature Granulocytes 0.5 % (0-0.5); % Lymphocytes 25.2 % (20.5-51.1); % Monocytes 9.7 % (1.7-9.3); % Neutrophils 58.1 % (42.2-75.2); Absolute Eosinophils 0.3 10^3/uL (0-0.7); Absolute Lymphocytes 1.1 10^3/uL (1.2-3.4); Absolute Monocytes 0.4 10^3/uL (0.1-0.6); Absolute Neutrophils 2.5 10^3/uL (1.4-6.5); Hematocrit 36.9 % (37.0-47.0); Hemoglobin 13.1 g/dL (12.0-16.0); Mean Corp Hgb Conc. 35.5 g/dL (33.0-37.0); Mean Corpuscular Hgb 29.8 pg (27.0-31.0); Mean Corpuscular Volume 84.1 fL (81.0-99.0); Mean Platelet Volume 11.1 fL (7.4-10.4); Nucleated Red Blood Cells % 0 %; Platelet Count 50 10^3/uL (130-400); Red Blood Cell Count 4.39 10^6/uL (4.20-5.40); Red Cell Dist. Width 12.2 % (11.5-14.5); White Blood Cell Count 4.3 10^3/uL (4.8-10.8)
[2025-01-13 04:59] LABS: ALT (SGPT) 96 U/L (0-35); AST (SGOT) 121 U/L (14-36); Albumin 3.8 g/dl (3.5-5.0); Alkaline Phosphatase 123 U/L (38-126); Blood Urea Nitrogen 4 mg/dl (7-17); Calcium 9.1 mg/dl (8.4-10.2); Carbon Dioxide 24 mmol/L (22-30); Chloride 98 mmol/L (98-107); Estimated Creatinine Clearance 103 ml/min; Glucose 95 mg/dl (70-99); Magnesium 1.9 mg/dl (1.6-2.3); Potassium 3.8 mmol/L (3.5-5.1); Sodium 133 mmol/L (135-145); Total Bilirubin 1.5 mg/dl (0.2-1.3); Total Protein 6.3 g/dl (6.3-8.2); eGFR > 60.00
[2025-01-13] MEDS: NSS (PRESERVATIVE FREE) 10 ML IV (07:56)
[2025-01-13] MEDS: PROTONIX IV 40 MG IV (07:56)
[2025-01-13] MEDS: THIAMINE INJECTION 200 MG IV ×2 (07:57→19:27)
--- NOTE | 2025-01-13 08:00 | PTCARENOTE ---
Pt getting OOB , pulled off monitors and gown. Rolling around in the bed tangled up in lines and blankets. Cannot redirect pt.Taking but making no sense. Pt knows her name and that she is here for alcohol withdraw does not know date or where she is.
Ativan given as ordered. Dr Brumfield notified pt now for tx to ICU
--- NOTE | 2025-01-13 08:47 | CON.INTV ---
Addendum entered and electronically signed by Alexandre Mcduffie MD 01/13/25 16:38:
Correction to DVT prophylaxis: Considering platelet count is dropping, use SCDs for now and continue trending platelet count
Original Note:
Consultation
Consultation Request
Date/Time Consultation Requested: 01/13/2025820
Date/Time Consultation Performed: 01/13/2025839
Requesting Provider: Dr. Sanderson
Performing Provider: Dr. Mcduffie
Reason for Consultation: Acute alcohol withdrawal with agitation
Medical History
-
Chief Complaint: Alcohol detox
History of Present Illness:
49-year-old female with a past medical history of chronic alcoholism, history of peptic ulcer disease, asthma, anxiety and depression who presents for alcohol detox. She told triage in the ER that she has been drinking vodka [id number] with
the last drink earlier prior to arrival. Patient is originally from [facility] but was here in [place] for rehab and then stayed here to continue drinking. She came to the ER to seek detoxification from alcohol. Patient was found to be
anxious and tremulous in the ER. Initial vitals showed she was afebrile to 98.1 �F, pulse rate 138, respiratory rate 16, BP 148/108 and saturating 97% on room air. Initial labs showed Hb 16.5, platelet count 71, INR 1.17, serum chloride level 90,
glucose 131, T. bili 1.7, AST 430, ALT 178, hCG negative, marijuana was on her UDS and alcohol level initially 306. She initially was given Ativan in the ER and 1 L NS 0.9% and admitted to the IMU for further care. On 01/13, her agitation and
alcohol withdrawal symptoms with confusion worsened despite multiple doses of Ativan. Patient then transferred to the ICU for further care, started on Precedex drip and Buffing Machine Operator services consulted for additional management/recommendations.
When I saw the patient, she was resting in bed, appears uncomfortable, with her 2 friends Palak + Mariela Clement, at bedside. Patient's heart rate 94, BP 92/70 and she is on room air breathing comfortably saturating 97%. Unable to get any history or
ROS from the patient given her acute clinical state.
PMHx: Chronic alcoholism, history of asthma, history of PUD, anxiety/depression
PSHx: Non-contributory
Past Medical History
Past Medical History: Other (Above as per HPI)
Past Surgical History: Other (Above as per HPI)
Social History
Tobacco: Vaping
Alcohol: Chronic Alcoholic (Multiple alcohol rehab stays in the past year, currently drinking at least 10 shots of vodka per day)
Drug: None
Family History
Family History: Reviewed & Not Pertinent
Allergies / Home Medications
Allergies
Allergy/AdvReac Type Severity Reaction Status Date / Time
codeine Allergy Vomiting Verified 10/12/24 18:28
Home Medications
�Medication �Instructions �Recorded �Confirmed �Last Taken �Type
albuterol sulfate 90 mcg/actuation 2 puff inhalation 6XD PRN 10/16/24 01/11/25 01/10/25 Rx
aerosol inhaler shortness of breath or wheezing
#8.5 grams
folic acid 1 mg tablet 1 mg PO DAILY #30 tabs 10/16/24 01/11/25 Unknown Rx
pantoprazole 40 mg tablet,delayed 40 mg PO DAILY #30 tabs 10/16/24 01/11/25 Unknown Rx
release (Protonix)
potassium chloride 20 mEq 20 meq PO BID #20 tabs 10/16/24 01/11/25 Unknown Rx
tablet,extended release(part/cryst)
thiamine HCl (vitamin B1) 100 mg 100 mg PO BID #60 tabs 10/16/24 01/11/25 Unknown Rx
tablet
duloxetine 60 mg capsule,delayed 60 mg PO DAILY Mental 01/11/25 01/11/25 01/10/25 History
release (Cymbalta) Health/Anxiety
gabapentin 300 mg tablet 300 mg PO TID Neurological 01/11/25 01/11/25 01/10/25 History
Condition
loratadine 10 mg tablet (Claritin) 10 mg PO DAILY Allergies 01/11/25 01/11/25 01/10/25 History
Review of Systems
-
Unable to Obtain full review of systems at this time due to: Acuity
Vitals / Labs / Diagnostic Testing
Vital Signs
Temp Pulse Resp BP Pulse Ox
98.1 F 125 32 104/85 95
01/13/25 02:49 01/13/25 08:07 01/13/25 08:07 01/13/25 07:00 01/13/25 08:13
Lab Data
01/13/25 04:03
01/13/25 04:03
Diagnostic Testing:
Physical Exam
-
HEENT: Normocephalic and Anicteric
Cardiovascular: S1/S2 and Peripheral Edema (negative)
Respiratory: Wheeze (negative), Rales (negative), Rhonchi (negative) and Non-Labored Respirations
GI: Soft, Non Distended, Non Tender and Normal Bowel Sounds
Neurology: Other (Uncooperative; confused)
Skin: Warm and Dry
General: Respiratory Distress (negative), Fever (negative), Chills (negative) and Other (Middle-age female who appears uncomfortable)
Assessment
-
Assessment: 49-year-old female with a past medical history of chronic alcoholism, history of peptic ulcer disease, asthma, anxiety and depression who presents for alcohol detox. She told triage in the ER that she has been drinking vodka
[id number] with the last drink earlier prior to arrival. Patient is originally from [facility] but was here in [place] for rehab and then stayed here to continue drinking. She came to the ER to seek detoxification from alcohol.
Patient was found to be anxious and tremulous in the ER. Initial vitals showed she was afebrile to 98.1 �F, pulse rate 138, respiratory rate 16, BP 148/108 and saturating 97% on room air. Initial labs showed Hb 16.5, platelet count 71, INR 1.17,
serum chloride level 90, glucose 131, T. bili 1.7, AST 430, ALT 178, hCG negative, marijuana was on her UDS and alcohol level initially 306. She initially was given Ativan in the ER and 1 L NS 0.9% and admitted to the IMU for further care. On
01/13, her agitation and alcohol withdrawal symptoms with confusion worsened despite multiple doses of Ativan. Patient then transferred to the ICU for further care, started on Precedex drip and Buffing Machine Operator services consulted for additional
management/recommendations.
Chronic conditions [employer]: Chronic alcoholism, history of asthma, history of PUD, anxiety/depression
Impression:
#Acute alcoholic withdrawal with impending DT
#Leukopenia
#Chronic thrombocytopenia
#Hyponatremia
#Transaminitis with hyperbilirubinemia due to alcoholic liver injury
#Alcoholic liver disease
#Gallbladder wall thickening with dilated CBD + pancreatic duct dilation
Plan:
- Patient is at high risk for alcohol withdrawal seizure given that she developed withdrawal symptoms with a presentation alcohol level of 306
- Patient had worsening alcohol withdrawal symptoms and was transferred to the ICU on 01/13/2025 and started on Precedex drip
- Continue to wean down on Precedex drip to the lowest required dose
- Continue with thiamine + folic acid
- Continue with phenobarbital + MSAS with prn ativan
- Resume patient's duloxetine
- Continue with gabapentin but hold for lethargy
- Eventual psych consult with [facility]
- Aspiration precautions
- Maintain SpO2 >90-94%
- prn nebulized bronchodilators - not currently bronchospastic
- Maintain MAP>65
- Replete electrolytes with K>4, Mg>2
- Maintain euglycemia with goal BG 140-180
- GI is following due to MRCP which showed dilated pancreatic duct with an occult lesion not ruled out
- Trend LFTs and T bili
- Eventual CT A/P with contrast
- Trend H/H and transfuse if needed to keep Hb>7g/dL; keep plt>20k, unless there is concern for bleeding then keep plt>50k
- PPI 40mg daily (home med)
- DVT ppx: Start LMWH
Continue ICU level care for this critically ill patient
Critical care statement: A total of 40 minutes of critical care time was provided for this patient today. This includes management of unstable vital signs, evaluation of the patient at bedside, reviewing the patient's pertinent medical records
including radiographs, microbiology, laboratory evaluations, and discussion with primary team, consultants, pharmacy, nutrition, physical therapy, case management, charge nurse, critical care nursing, and respiratory therapy.
Data:
Abdominal ultrasound 01/11/2025:
1. Increased echogenicity in the liver, compatible with underlying hepatocellular disease, which most commonly relates to fatty infiltration of the liver.
2. Gallbladder wall thickening may be on the basis of systemic congestion. Otherwise no sonographic evidence for cholelithiasis or acute cholecystitis.
3. Dilated common bile duct without compressing cause identified sonographically. Consider MRCP for further evaluation as clinically indicated.
--- NOTE | 2025-01-13 09:17 | PTCARENOTE ---
Pt ordered for ICU report to [facility] and pt moved. PT lethargic when moving
[2025-01-13] MEDS: PRECEDEX 100 IV (09:23)
--- NOTE | 2025-01-13 09:30 | PTCARENOTE ---
Received report from IMU RN.Assumed care of pt.Pt transported to ICU via bed.Pt is agitated,frequently moving about bed and disrobing.Conversation is vague.Pt oriented to self only, insists she is in [facility].+[place].Denies pain.ST noted.Precedex
gtt initiated at 0.2 mcg as ordered.Lungs CTA.POX 98%.Pt tolerated water and po medications.No BM.Bladder scanned for 406 ml.Pt voided 200 ml urine in bedpan.Skin integrity intact.Plan of care discussed with pt.
[2025-01-13] MEDS: LUMINAL 64.8 MG PO ×3 (09:39→20:56)
[2025-01-13] MEDS: MAGNESIUM OXIDE 500 MG PO ×2 (09:40→19:27)
[2025-01-13] MEDS: NEURONTIN 300 MG PO ×3 (09:40→20:56)
--- NOTE | 2025-01-13 10:26 | W.PN.HOSP.TC ---
Today's Communication/Plan
-
ICU
cont withdrawal mgmt
Assessment / Plan
Assessment / Plan
49yo F with PMHx of alcohol abuse, chronic pancreatitis, asthma, anxiety came with c/o generalized feeling unwell, nausea and vomiting since she was drinking daily for the past months and requesting detox. Managed for acohol withdrawal and also
found dilated CBD, however MRCP was inconclusive for definite reason given limitations.
A/P:
#Alcohol abuse with withdrawal
#Polysubstance abuse
watch for DT
Thiamine/FOlate
Phenobarb taper
MSAS with ativan
Utox: positive for barbiturates, BZD and marijuana
With worsening withdrawal and multiple Ativan doses on 01/13/25 - transferred to ICU for precedex drip
#Transaminitis
#Mild bilirubin elevation
#Fatty liver disease
#Dilated bile duct noted on US
MRCP neg for bladder pathology
No overt cholelithiasis or RUQ pain, Zosyn stopped
GI consult
INR WNL
No RUQ pain
follow LFT
INR WNL
#Chronic pancreatitis
lipase WNL
#Thrombocytopenia
#Mild leukopenia
2/2 alcohol abuse
follow CBC
#Hypokalemia
replete and follow electrolytes
DVT ppx SCDs 2/2 thrombocytopenia
Full code
I have spent at least 58min reviewing chart, test results, and providing direct patient care
Anticipated Discharge: > 48 hours
Subjective/Interval History
-
Date of Service: January 13, 2025
Objective Data
-
Labs:
Laboratory Results
01/13/25
04:03
WBC 4.3 L
Hgb 13.1
Hct 36.9 L
Plt Count 50 L D
Sodium 133 L
Potassium 3.8
Chloride 98
Carbon Dioxide 24
BUN 4 L
Creatinine 0.5 L
Glucose 95
Calcium 9.1
Total Bilirubin 1.5 H
AST 121 H
ALT 96 H
Alkaline Phosphatase 123
Vital Signs:
Vital Signs
Temp Pulse Resp BP Pulse Ox
98.1 F 125 32 104/85 95
01/13/25 02:49 01/13/25 08:07 01/13/25 08:07 01/13/25 07:00 01/13/25 08:13
I&O
01/12/25 01/13/25 01/14/25
06:59 06:59 06:59
Intake Total 2170 / 2170 904 / 904
Balance 2170 / 2170 904 / 904
Review of Systems
-
Unable to obtain full review of systems at this time due to: Other (sedation)
Physical Exam
-
General: No Apparent Distress
HEENT: Normocephalic
Respiratory: Clear to Auscultation
Musculoskeletal: No Clubbing, No Cyanosis and No Edema
Neuro: Sedated
Psych: Calm
--- NOTE | 2025-01-13 10:45 | CON.GI ---
Addendum entered and electronically signed by Julianna Morrissey MD 01/13/25 19:02:
I saw and examined the patient.
The SACK FILLER or PA's note was reviewed and I agree with the note.
Comment: 49-year-old with history of alcohol abuse, asthma came into the ER with a friend for detox evaluation. On admission, she was noted to have elevated LFTs with total bilirubin of 1.8, AST 155, ALT 23 alkaline phosphatase of 150 with an INR
of 1.7. Thrombocytopenia noted as well. Abdominal ultrasound showed increased echogenicity consistent with fatty liver, gallbladder wall thickening and dilated common duct to 8.8 mm noted. Subsequent MRCP showed common duct of 5 mm without any
filling defects and main pancreatic duct is dilated to 7 mm. Evidence of chronic pancreatitis with multiple calcifications noted ,this was also seen on previous CT in September 2024
Could not get history as patient is in DTs, not oriented place and time.
Will talk screen showing marijuana, barbiturates and benzos.
-Alcohol abuse with withdrawal symptoms at this time
Continue DT precautions
Monitor electrolytes and replete
-Dilation of the pancreatic duct with evidence of chronic pancreatitis
She will need MRI with MRCP to evaluate the pancreas better.
Will follow for now
Addendum entered and electronically signed by SUZE Robbins 01/13/25 13:51:
with heavy ETOH use-- DF 8.4 no role for steroids
Original Note:
Consultation
-
Date/Time Consultation Requested: 01/13/25 1030
Date/Time Consultation Performed: 01/13/25 1045
Requesting Provider: Jude Sanderson MD
Performing Provider: SUZE Art, Julianna Morrissey MD
Reason for Consultation: abnormal imaging with dilated CBD
Medical History
Chief Complaint / HPI
Chief Complaint: abnormal imaging
History of Present Illness:
Pt is a 49yo with hx ETOH abuse, asthma, anxiety/depression with admission 01/10 after brought in by friend for detox. On admission admits to at least 10 shots Vodka daily. On admission noted Na 131, bili 1.8, AST 155, ALT 103, alk phos 115, INR
1.17, WBC 5,500, hbg 16.5, platelets 71,000 with drop and further pancytopenia after admission. Imaging with US abdomen gallbladder wall thickening on basis of congestion otherwise no cholecystitis or cholelithiasis noted. There was also noted
dilated CBD without cause. Follow up MRCP with no choledocholithiasis , main pancreatic duct dilated occult lesion at level of pancreatic head not excluded but pt with chronic pancreatitis with multiple calcifications with irregular low intensity
in pancreatic paracychyma on exam. consider ERCP or EUS.
Pt currently on Precedex and unable to give history. Some history obtain from friends at bedside. Per friend hx ETOH abuse for many years with multiple rehab programs. She was living in [place] then was working with [facility] program. She
was ETOH free for several months but moved on her own several months ago and began drinking again. She was admitted on September with vomiting with concern for recurrent ETOH use. In ER states 10 + shots daily and friends states higher amounts.
Some hx nausea and gagging with ETOH use and some decreased appetite but no known dysphagia, GERD, diarrhea, constipation, or rectal bleeding. urine tox + barbituates, benzo and Marijuana.
Past Medical History
Past Medical History: Asthma, Psychiatric (anxiety/depression) and Other (ETOH abuse, PUD)
Social History
Tobacco: Vaping
Alcohol: Daily
Drug: Marijuana and Other (urine tox + barbituates, benzo and Marijuana )
Living: Alone
Employment: Not Employed (recently lost job)
Family History
Family History: Other (unsure of family hx )
Allergies / Home Medications
Allergy/AdvReac Type Severity Reaction Status Date / Time
codeine Allergy Vomiting Verified 10/12/24 18:28
�Medication �Instructions �Recorded
albuterol sulfate 90 mcg/actuation 2 puff inhalation 6XD PRN 10/16/24
aerosol inhaler shortness of breath or wheezing
#8.5 grams
folic acid 1 mg tablet 1 mg PO DAILY #30 tabs 10/16/24
pantoprazole 40 mg tablet,delayed 40 mg PO DAILY #30 tabs 10/16/24
release (Protonix)
potassium chloride 20 mEq 20 meq PO BID #20 tabs 10/16/24
tablet,extended release(part/cryst)
thiamine HCl (vitamin B1) 100 mg 100 mg PO BID #60 tabs 10/16/24
tablet
duloxetine 60 mg capsule,delayed 60 mg PO DAILY Mental 01/11/25
release (Cymbalta) Health/Anxiety
gabapentin 300 mg tablet 300 mg PO TID Neurological 01/11/25
Condition
loratadine 10 mg tablet (Claritin) 10 mg PO DAILY Allergies 01/11/25
Review of Systems
-
Unable to obtain full review of systems at this time due to: Other (pt sedated )
History Source: Other (friends at bedside )
Constitutional: Reports No Symptoms
EENT: Reports No Symptoms
Respiratory: Reports No Symptoms
Cardiac: Reports No Symptoms
Abdomen/GI: Reports Nausea, Vomiting and Other (decreased appetite )
: Reports No Symptoms
Musculoskeletal: Reports No Symptoms
Skin: Reports No Symptoms
Neurological: Reports Weakness
Endocrine: Reports No Symptoms
Hematologic/Lymphatic: Reports No Symptoms
Vital Signs
Temp Pulse Resp BP Pulse Ox
98.1 F 125 32 104/85 95
01/13/25 02:49 01/13/25 08:07 01/13/25 08:07 01/13/25 07:00 01/13/25 08:13
Physical Exam
Exam
General: Other (pt sedated with minimal attempt at verbal communications)
HEENT: Normocephalic and Anicteric
Respiratory: Clear
Cardiac: Other (tachy)
GI: Soft, Non Tender (limited exam with sedations) and Non Distended
Musculoskeletal: No Clubbing and No Cyanosis
Skin: Warm and Dry
Neuro: Sedated
Psych: Calm
Results
WBC 4.3 10^3/uL (4.8-10.8) L 01/13/25 04:03
Hgb 13.1 g/dL (12.0-16.0) 01/13/25 04:03
Hct 36.9 % (37.0-47.0) L 01/13/25 04:03
MCV 84.1 fL (81.0-99.0) 01/13/25 04:03
Plt Count 50 10^3/uL (130-400) L D 01/13/25 04:03
Absolute Neuts (auto) 2.5 10^3/uL (1.4-6.5) 01/13/25 04:03
PT 14.5 Sec (11.4-14.6) 01/12/25 04:37
INR 1.09 01/12/25 04:37
APTT 28.1 Sec (23.4-35.0) 01/11/25 05:26
Sodium 133 mmol/L (135-145) L 01/13/25 04:03
Potassium 3.8 mmol/L (3.5-5.1) 01/13/25 04:03
Chloride 98 mmol/L (98-107) 01/13/25 04:03
Carbon Dioxide 24 mmol/L (22-30) 01/13/25 04:03
BUN 4 mg/dl (7-17) L 01/13/25 04:03
Creatinine 0.5 mg/dL (0.6-1.0) L 01/13/25 04:03
Calcium 9.1 mg/dl (8.4-10.2) 01/13/25 04:03
Total Bilirubin 1.5 mg/dl (0.2-1.3) H 01/13/25 04:03
AST 121 U/L (14-36) H 01/13/25 04:03
ALT 96 U/L (0-35) H 01/13/25 04:03
Alkaline Phosphatase 123 U/L (38-126) 01/13/25 04:03
Lipase 42 U/L (23-300) 01/11/25 05:26
Diagnostic Image Results:
10/12/24 US abdomen
Limited by bowel gas artifact. Hepatic steatosis. No evidence for cholelithiasis or bile duct dilatation.
10/13/24 CT Abd/pelvis W Iv Cont
1. Mild bowel wall thickening involving several loops of distal small bowel and the proximal colon, suggestive of mild enterocolitis.
2. Severe fatty infiltration of the liver. Mild hepatic enlargement.
3. Pancreatic calcification, suggestive of chronic pancreatitis.
Gallbladder: There is no significant dilation of the gallbladder. No radiopaque gallstones are appreciated, and there is no significant pericholecystic inflammatory change.
Bile Ducts: No significant biliary ductal dilation.
01/11/25 US abdomen
1. Increased echogenicity in the liver, compatible with underlying hepatocellular disease, which most commonly relates to fatty infiltration of the liver.
2. Gallbladder wall thickening may be on the basis of systemic congestion. Otherwise no sonographic evidence for cholelithiasis or acute cholecystitis.
3. Dilated common bile duct without compressing cause identified sonographically. Consider MRCP for further evaluation as clinically indicated.
01/12/25 MR Mrcp Without
Significantly limited examination secondary to incomplete sequences. Within these limitations, no clear evidence for choledocholithiasis. The main pancreatic duct is dilated. An occult lesion at the level of the head of the pancreas cannot be
excluded, but the patient does have chronic pancreatitis with multiple pancreatic calcifications noted on the previous CT, which likely correspond to the areas of irregular low signal intensity in the pancreatic parenchyma on this exam. A follow-up
ERCP or endoscopic ultrasound could be considered if clinically indicated.
Prior GI Procedures:
EGD: completed in past details unknown
Colonoscopy: completed in past details unknown
Assessment / Plan
-
Pt is a 49yo with hx ETOH abuse, asthma, anxiety/depression with admission 01/10 after brought in by friend for detox. On admission admits to at least 10 shots Vodka daily. On admission noted Na 131, bili 1.8, AST 155, ALT 103, alk phos 115, INR
1.17, WBC 5,500, hbg 16.5, platelets 71,000 with drop and further pancytopenia after admission. Imaging with US abdomen gallbladder wall thickening on basis of congestion otherwise no cholecystitis or cholelithiasis noted. There was also noted
dilated CBD without cause. Follow up MRCP with no choledocholithiasis , main pancreatic duct dilated occult lesion at level of pancreatic head not excluded but pt with chronic pancreatitis with multiple calcifications with irregular low intensity
in pancreatic parenchyma on exam. consider ERCP or EUS.
- ETOH abuse
-ETOH withdrawal
-abnormal imaging with dilated CBD on US, dilated pancreatic duct with occult lesion note excluded and changes of chronic pancreatitis with calcifications
-pancytopenia
-hyponatremia
-increased LFT's
-hyponatremia
other med problems:
-hx Asthma
-anxiety/depression
-hx PUD
PLAN:
etiology of symptoms with concern for ETOH withdrawal
currently on Predex
will review imaging with Dr. Morrissey-- ductal dilation not noted on imaging in September may be on basis of ETOH , chronic pancreatitis vs other
when able consider MRI with contrast with repeat of MRCP
if remains abnormal consider OP EUS when pt more awake and recovered from current detox
trend labs
NPO til more awake and alert-- if prolonged need for sendation consider temp DHT
cont thiamine and folate
-
-
Thank you for consultation and allowing me to participate in the patient's care. Please call the harmonica maker GI physician during the after hours with any questions or concerns.
--- NOTE | 2025-01-13 12:00 | PTCARENOTE ---
Pt assessed.No change in assessment noted.Sleeping.Awakens to voice.Conversation remain confused.
--- NOTE | 2025-01-13 12:30 | PTCARENOTE ---
Precedex gtt reduced to 0.1 mcg for MSAS and RASS scores.
--- NOTE | 2025-01-13 15:10 | PN.CDI ---
CDI
- -
CDI:
Physician Documentation Request
Admit Date: 01/10/25 22:12
Dear Doctor Maria E,
Please review the following and provide your response in the progress notes.
Clinical Indicators:
- Rough And Trueing Machine Operator note indicates severe protein calorie malnutrition
- Unintentional weight loss > 7.5% in 3 months
- Nutrient intake </= 75% estimated energy needs, >/= 1 month
Based on the above information and your assessment, which of the following most accurately represents the patient's nutritional status?
Severe protein calorie malnutrition
Other (please specify)
Miller Criteria ([facility] Hospitalist 2017)
2 or more criteria must be present for either
non severe or severe malnutrition
Note that the criteria differs related to the
presence of an acute or chronic illness
Acute Illness Chronic Illness
Energy Intake Non Severe: <75% for >7 days Non Severe: <75% for >1 month
Severe: <50% for >5 days Severe: <75% for >1 month
Weight Loss Non Severe: 1-2% over 1 week Non Severe: 5% over 1 month
5% over 1 month 7.5% over 3 months
7.5% over 3 months 10% over 6 months
1 year N/A 20% over 1 year
Severe: >2% over 1 week Severe: >5% over 1 month
>5% over 1 month >7.5% over 3 months
>7.5% over 3 months >10% over 6 months
1 year N/A >20% over 1 year
Body Fat Non Severe: Mild Decrease Non Severe: Mild Loss
Severe: Moderate Decrease Severe: Severe Loss
Muscle Mass Non Severe: Mild Decrease Non Severe: Mild Loss
Severe: Moderate Decrease Severe: Severe Loss
Fluid Accumulation Non Severe: Mild Accumulation Non Severe: Mild Accumulation
Severe: Moderate to severe Severe: Moderate to severe
accumulation accumulation
Reduced Banana Handler Strength Non Severe: N/A Non Severe: N/A
Severe: Measurably reduced Severe: Measurably reduced
Additional criteria that can be used to Determine if Mild or Moderate Malnutrition (Merck Manual 2018)
Mild Moderate Severe
Albumin gm/dl <3.0 gm/dl <2.5 gm/dl <2.0 gm/dl
Pre Albumin mg/dl <15 gm/dl <10 mg/dl <5.0 mg/dl
BMI <18.5 <17 <16
Use of terms such as suspected, likely, concern for, or probable (associated with a specific diagnosis that is being evaluated, monitored, or treated as if it exists) are acceptable and can be coded in the inpatient setting, when documented at the
time of discharge.
Thank you,
Andres Avendaño RN
CDI Specialist
Please use your independent medical judgment in providing your response.
--- NOTE | 2025-01-13 16:00 | PTCARENOTE ---
Pt assessed.Pt continues to remove POX and patient monitor.Conversation is confused.Pt is occasionall verbally aggressive with RN stating 'shut the
fk up' while attempting to assess pt's need to void.Pt incontinent of urine.
[2025-01-13] MEDS: CYMBALTA DELAYED RELEASE 60 MG PO (17:26)
[2025-01-13] MEDS: FOLVITE 1 MG PO (17:27)
--- NOTE | 2025-01-13 20:00 | PTCARENOTE ---
On assessment pt very restless and confused in bed, pt knows name but confused to time and place, pt on DEXgtt per orders, ST on the monitor, RA 96%, reg diet, bed alarm on and call jean baptiste in reach
[2025-01-14] VITALS (36 sets, daily range): BP systolic 71–120; BP diastolic 62–87
--- NOTE | 2025-01-14 | PTCARENOTE ---
no changes from prior assessment, pt continues on DEX gtt, bed alarm on and call jean baptiste in reach
[2025-01-14 03:35] LABS: % Basophils 0.7 % (0-2); % Immature Granulocytes 0.5 % (0-0.5); % Lymphocytes 32.8 % (20.5-51.1); % Monocytes 14.2 % (1.7-9.3); % Neutrophils 45.8 % (42.2-75.2); Absolute Eosinophils 0.2 10^3/uL (0-0.7); Absolute Lymphocytes 1.3 10^3/uL (1.2-3.4); Absolute Monocytes 0.6 10^3/uL (0.1-0.6); Absolute Neutrophils 1.8 10^3/uL (1.4-6.5); Hematocrit 35.1 % (37.0-47.0); Hemoglobin 12.9 g/dL (12.0-16.0); Mean Corp Hgb Conc. 36.8 g/dL (33.0-37.0); Mean Corpuscular Hgb 30.6 pg (27.0-31.0); Mean Corpuscular Volume 83.2 fL (81.0-99.0); Mean Platelet Volume 11.5 fL (7.4-10.4); Nucleated Red Blood Cells % 0 %; Platelet Count 65 10^3/uL (130-400); Red Blood Cell Count 4.22 10^6/uL (4.20-5.40); Red Cell Dist. Width 12.5 % (11.5-14.5)
--- NOTE | 2025-01-14 03:54 | PTCARENOTE ---
no changes from prior assessment, bed alarm on and call jean baptiste in reach
[2025-01-14 04:34] LABS: ALT (SGPT) 83 U/L (0-35); AST (SGOT) 95 U/L (14-36); Albumin 3.6 g/dl (3.5-5.0); Alkaline Phosphatase 110 U/L (38-126); Blood Urea Nitrogen 9 mg/dl (7-17); Calcium 9.3 mg/dl (8.4-10.2); Carbon Dioxide 25 mmol/L (22-30); Chloride 98 mmol/L (98-107); Estimated Creatinine Clearance 103 ml/min; Glucose 108 mg/dl (70-99); Magnesium 1.9 mg/dl (1.6-2.3); Phosphorus 3.7 mg/dl (2.5-4.5); Sodium 136 mmol/L (135-145); Total Bilirubin 0.9 mg/dl (0.2-1.3); Total Protein 6.1 g/dl (6.3-8.2); eGFR > 60.00
[2025-01-14] MEDS: PRECEDEX 100 IV ×2 (05:57→21:32)
[2025-01-14] MEDS: ATIVAN 1 MG IV (08:02)
[2025-01-14] MEDS: CYMBALTA DELAYED RELEASE 60 MG PO (08:05)
[2025-01-14] MEDS: LUMINAL 64.8 MG PO (08:06)
[2025-01-14] MEDS: NEURONTIN 300 MG PO ×3 (08:10→20:46)
--- NOTE | 2025-01-14 08:22 | W.PN.INTV ---
Today's Communication / Plan
Recommendations
Continue Precedex drip
Wean down Precedex drip to lowest therapeutic dose
Continue phenobarbital and change from PO to IV given her difficulty with taking oral medications
Thiamine
PPI
Psych consult
Continue ICF care for this critically ill patient
Assessment
-
Assessment: 49-year-old female with a past medical history of chronic alcoholism, history of peptic ulcer disease, asthma, anxiety and depression who presents for alcohol detox. She told triage in the ER that she has been drinking vodka
[id number] with the last drink earlier prior to arrival. Patient is originally from [facility] but was here in [place] for rehab and then stayed here to continue drinking. She came to the ER to seek detoxification from alcohol.
Patient was found to be anxious and tremulous in the ER. Initial vitals showed she was afebrile to 98.1 �F, pulse rate 138, respiratory rate 16, BP 148/108 and saturating 97% on room air. Initial labs showed Hb 16.5, platelet count 71, INR 1.17,
serum chloride level 90, glucose 131, T. bili 1.7, AST 430, ALT 178, hCG negative, marijuana was on her UDS and alcohol level initially 306. She initially was given Ativan in the ER and 1 L NS 0.9% and admitted to the IMU for further care. On
01/13, her agitation and alcohol withdrawal symptoms with confusion worsened despite multiple doses of Ativan. Patient then transferred to the ICU for further care, started on Precedex drip and Pug Machine Operator services consulted for additional
management/recommendations.
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
Impression:
#Acute alcoholic withdrawal with impending DT requiring Precedex drip
#Leukopenia
#Chronic thrombocytopenia
#Hyponatremia
#Transaminitis with hyperbilirubinemia due to alcoholic liver injury
#Alcoholic liver disease
#Gallbladder wall thickening with dilated CBD + pancreatic duct dilation
Plan:
- Patient is at high risk for alcohol withdrawal seizure given that she developed withdrawal symptoms with a presentation alcohol level of 306
- Patient had worsening alcohol withdrawal symptoms and was transferred to the ICU on 01/13/2025 and started on Precedex drip
- Continue to wean down on Precedex drip to the lowest required dose
- Continue with thiamine + folic acid
- Continue with phenobarbital + MSAS with prn ativan --> change PO meds to IV given difficulty with her taking PO meds, per RN
- Continue home med: uloxetine
- Continue with gabapentin but hold for lethargy
- Consult psych; also would recommend pt speak with [facility]
- Aspiration precautions
- Maintain SpO2 >90-94%
- prn nebulized bronchodilators - not currently bronchospastic
- Maintain MAP>65
- Replete electrolytes with K>4, Mg>2
- Maintain euglycemia with goal BG 140-180
- GI is following due to MRCP which showed dilated pancreatic duct with an occult lesion not ruled out
- Trend LFTs and T bili
- Eventual CT A/P with contrast - defer this to GI
- Trend H/H and transfuse if needed to keep Hb>7g/dL; keep plt>20k, unless there is concern for bleeding then keep plt>50k
- PPI 40mg daily (home med)
- DVT ppx: SCDs for now; if platelet count remains stable by tomorrow then can start Lovenox at that time
Continue ICU level care for this critically ill patient
Critical care statement: A total of 37 minutes of critical care time was provided for this patient today. This includes management of unstable vital signs, evaluation of the patient at bedside, reviewing the patient's pertinent medical records
including radiographs, microbiology, laboratory evaluations, and discussion with primary team, consultants, pharmacy, nutrition, physical therapy, case management, charge nurse, critical care nursing, and respiratory therapy.
Data:
Abdominal ultrasound 01/11/2025:
1. Increased echogenicity in the liver, compatible with underlying hepatocellular disease, which most commonly relates to fatty infiltration of the liver.
2. Gallbladder wall thickening may be on the basis of systemic congestion. Otherwise no sonographic evidence for cholelithiasis or acute cholecystitis.
3. Dilated common bile duct without compressing cause identified sonographically. Consider MRCP for further evaluation as clinically indicated.
Subjective Dataa
Subjective Data
Date of Service:
Date of Service: January 14, 2025
Chief Complaint: Pug Machine Operator Follow Up
Subjective:
Patient seen and evaluated this AM. Currently on Precedex gtt at 0.3 mcg/kg/hr. Heart rate 95, BP 97/70 and saturating 98%. She is sleeping but easily arousable, confused at times, and occasionally tearful. She is eager to go home.
Review of Systems
General: Other (Unable to obtain given patient's acute clinical status/confusion)
Objective Data
Data Reviewed
Vital Signs / I&O / Oxygen:
Vital Signs
Temp Pulse Resp BP Pulse Ox
97.5 F 74 16 91/65 93
01/14/25 07:47 01/14/25 06:30 01/14/25 06:30 01/14/25 06:30 01/14/25 06:30
Intake and Output
01/13/25 01/14/25 01/15/25
06:59 06:59 06:59
Intake Total 904 / 904 677.5 / 677.5 260 / 260
Output Total 200 / 200 300 / 300
Balance 904 / 904 477.5 / 477.5 -40 / -40
SaO2 93
Nasal Cannula flow liters per 3
minute
Physical Exam
General: Respiratory Distress (negative), Chills (negative) and Sweats (negative)
HEENT: Normocephalic and Anicteric
Cardiovascular: S1-S2 and Peripheral Edema (negative)
Respiratory: Clear, Wheeze (negative), Crackles (negative), Rhonchi (negative) and Non-Labored Respirations
GI: Soft, Non Distended, Non Tender and Normal Bowel Sounds
Neurology: Tremors (negative), Lethargic and Other (Moves all 4 extremities spontaneously)
Skin: Warm, Dry, Cyanosis (negative) and Rash (negative)
Labs/Micro/Reports
Lab Data
01/14/25 02:49
01/14/25 04:01
--- NOTE | 2025-01-14 09:00 | W.PN.GI.CBS2 ---
Addendum entered and electronically signed by Haylee Gallo MD 01/14/25 15:40:
I saw and examined the patient.
The FACILITY MECHANIC or PA's note was reviewed and I agree with the note.
Comment: 49 yo F with history EtOH abuse presenting for detox found to have abnormal LFTs, thrombocytopenia, MRCP non co with PD dilation, also found to have chronic pancreatitis on prior imaging.
Recommendations:
- MRI with contrast prior to discharge - I relayed to hospitalist. Cannot do now due to mental status.
- LFTs trending down suspect 2/2 ETOH, continue to monitor.
- Outpatient fibroscan recommended with thrombocytopenia may have cirrhosis.
GI will sign off please call with ?s
Original Note:
Today's Communication / Plan
-
etiology of symptoms with concern for continued ETOH withdrawal
remains on Precedex with ativan given this am
plan for MRI with and without contrast
reviewed with nursing staff mental status variable with some agitation may be best to wait til mental status improved for best imaging but would consider proceeding prior to discharge as patient with concern for compliance with OP followup
LFT's trending down, platelets low but stable, INR normal
trend labs
diet as tolerated
cont thiamine and folate
updated friends on contact 01/13
Assessment / Plan
-
Pt is a 49yo with hx ETOH abuse, asthma, anxiety/depression with admission 01/10 after brought in by friend for detox. On admission admits to at least 10 shots Vodka daily. On admission noted Na 131, bili 1.8, AST 155, ALT 103, alk phos 115, INR
1.17, WBC 5,500, hbg 16.5, platelets 71,000 with drop and further pancytopenia after admission. Imaging with US abdomen gallbladder wall thickening on basis of congestion otherwise no cholecystitis or cholelithiasis noted. There was also noted
dilated CBD without cause. Follow up MRCP with no choledocholithiasis , main pancreatic duct dilated occult lesion at level of pancreatic head not excluded but pt with chronic pancreatitis with multiple calcifications with irregular low intensity
in pancreatic parenchyma on exam. consider ERCP or EUS.
-ETOH abuse
-ETOH withdrawal
-abnormal imaging with dilated CBD on US, dilated pancreatic duct with occult lesion note excluded and changes of chronic pancreatitis with calcifications
-pancytopenia
-hyponatremia
-increased LFT's
-hyponatremia
other med problems:
-hx Asthma
-anxiety/depression
-hx PUD
PLAN:
etiology of symptoms with concern for continued ETOH withdrawal
remains on Precedex with ativan given this am
plan for MRI with and without contrast
reviewed with nursing staff mental status variable with some agitation may be best to wait til mental status improved for best imaging but would consider proceeding prior to discharge as patient with concern for compliance with OP followup
LFT's trending down, platelets low but stable, INR normal
trend labs
diet as tolerated
cont thiamine and folate
updated friends on contact 01/13
Subjective
Subjective
Date of Service: January 14, 2025
periods of confusions/agitation then somnolence on regular diet
Objective
Data Reviewed
Laboratory Data:
Laboratory Results
01/14/25 02:49
01/14/25 04:01
Laboratory Results
PT 14.5 Sec (11.4-14.6) 01/12/25 04:37
INR 1.09 01/12/25 04:37
APTT 28.1 Sec (23.4-35.0) 01/11/25 05:26
Phosphorus 3.7 mg/dl (2.5-4.5) 01/14/25 04:01
Magnesium 1.9 mg/dl (1.6-2.3) 01/14/25 04:01
Total Bilirubin 0.9 mg/dl (0.2-1.3) 01/14/25 04:01
AST 95 U/L (14-36) H 01/14/25 04:01
ALT 83 U/L (0-35) H 01/14/25 04:01
Alkaline Phosphatase 110 U/L (38-126) 01/14/25 04:01
Lipase 42 U/L (23-300) 01/11/25 05:26
Vital Signs and I&O:
Vital Signs
Temp Pulse Resp BP Pulse Ox
97.5 F 74 16 91/65 93
01/14/25 07:47 01/14/25 06:30 01/14/25 06:30 01/14/25 06:30 01/14/25 06:30
I&O
01/13/25 01/14/25 01/15/25
06:59 06:59 06:59
Intake Total 904 / 904 677.5 / 677.5
Output Total 200 / 200
Balance 904 / 904 477.5 / 477.5
Physical Exam
Physical Exam
HEENT: Anicteric and Moist mucous membranes
Cardiology: Normal Sinus Rhythm
Pulmonary: Clear
GI: Soft, Non Distended and Non Tender
Extremities: No Edema
Neuro: Other (sedated non verbal in conversation )
[2025-01-14] MEDS: FOLVITE 1 MG PO (10:05)
[2025-01-14] MEDS: PROTONIX 40 MG PO (10:05)
[2025-01-14] MEDS: MAGNESIUM OXIDE 500 MG PO ×2 (10:05→20:46)
[2025-01-14] MEDS: VITAMIN B1 100 MG PO (10:05)
--- NOTE | 2025-01-14 10:16 | W.PN.HOSP.TC ---
Today's Communication/Plan
-
cont withdrawal mgmt with precedex
Assessment / Plan
Assessment / Plan
49yo F with PMHx of alcohol abuse, chronic pancreatitis, asthma, anxiety came with c/o generalized feeling unwell, nausea and vomiting since she was drinking daily for the past months and requesting detox. Managed for acohol withdrawal and also
found dilated CBD, however MRCP was inconclusive for definite reason given limitations.
A/P:
#Alcohol abuse with withdrawal
#Polysubstance abuse
watch for DT
Thiamine/FOlate
Phenobarb taper
MSAS with ativan
Utox: positive for barbiturates, BZD and marijuana
With worsening withdrawal and multiple Ativan doses on 01/13/25 - transferred to ICU for precedex drip
#Transaminitis
#Mild bilirubin elevation
#Fatty liver disease
#Dilated bile duct noted on US
MRCP neg for bladder pathology
No overt cholelithiasis or RUQ pain, Zosyn stopped
GI consult: repeat MRI abd with MRCP when acute withdrawal resolves
INR WNL
No RUQ pain
follow LFT
INR WNL
#Chronic pancreatitis
lipase WNL
#Thrombocytopenia
#Mild leukopenia
2/2 alcohol abuse
follow CBC
#Hypokalemia
replete and follow electrolytes
DVT ppx SCDs 2/2 thrombocytopenia
Full code
I have spent at least 38min reviewing chart, test results, and providing direct patient care
Anticipated Discharge: > 48 hours
Subjective/Interval History
-
Date of Service: January 14, 2025
Objective Data
-
Labs:
Laboratory Results
01/14/25 01/14/25
02:49 04:01
WBC 4.0 L
Hgb 12.9
Hct 35.1 L
Plt Count 65 L D
Sodium Cancelled 136
Potassium Cancelled 4.0
Chloride Cancelled 98
Carbon Dioxide Cancelled 25
BUN Cancelled 9
Creatinine Cancelled 0.5 L
Glucose Cancelled 108 H
Calcium Cancelled 9.3
Total Bilirubin Cancelled 0.9
AST Cancelled 95 H
ALT Cancelled 83 H
Alkaline Phosphatase Cancelled 110
Vital Signs:
Vital Signs
Temp Pulse Resp BP Pulse Ox
97.5 F 74 16 91/65 93
01/14/25 07:47 01/14/25 06:30 01/14/25 06:30 01/14/25 06:30 01/14/25 06:30
I&O
01/13/25 01/14/25 01/15/25
06:59 06:59 06:59
Intake Total 904 / 904 677.5 / 677.5
Output Total 200 / 200
Balance 904 / 904 477.5 / 477.5
Review of Systems
-
Unable to obtain full review of systems at this time due to: Acuity
History Source: Patient
Constitutional: Reports Sleep Disturbance
Physical Exam
-
General: No Apparent Distress; Negative Comfortable
HEENT: Normocephalic
Respiratory: Clear to Auscultation
Cardiac: Regular Rhythm
Musculoskeletal: No Clubbing, No Cyanosis and No Edema
Skin: Warm
Neuro: Awake and Alert
Psych: Confused
[2025-01-14] MEDS: ATIVAN 1 MG PO (11:51)
--- NOTE | 2025-01-14 12:03 | PTCARENOTE ---
Pt AAOx1-2. Very confused and restless at times. MSAS noted as high as 8. Ativan per order. Remains on Precedex gtt.
Appears to hallucinate at times. Reports nausea at times. Only ate 3 bites of breakfast.
Wrist restraints appear to cause increased agitation therefore d/c'd. Pt frequently reoriented. Bed alarm on.
All other assessments unchanged.
--- NOTE | 2025-01-14 15:57 | CM ---
CM following re: discharge planning.
Reviewed pt's chart, mt with pt and with pt's permission spoke to pt's brother Alexander.
Pt presents sitting on the bed with depressed mood, sad affect, expressed difficulties to stay in conversation and able to say a few words.
Per pt's brother Alexander who lives in [facility], pt has been drinking a lot, lives alone, has 3 siblings and only him pt chose to communicate. Pt's brother asked to help the pt with placing to inpatient D&A rehab.
Per CM note, a referral to [facility] made and [facility] following. [facility] team will meet with the pt when pt is more awake and able to fully participate in conversation.
Pt has no insurance. [facility] specialist following.
D/C plan: Inpatient residential D&A rehab when medically stable.
[2025-01-14] MEDS: PHENOBARBITAL 65 MG IV ×2 (17:03→21:33)
--- NOTE | 2025-01-14 20:16 | PTCARENOTE ---
On assessment pt very restless and confused in bed, pt on DEXgtt per orders, ST/SR on the monitor, RA 95%, reg diet, bed alarm on and call jean baptiste in reach
[2025-01-14] MEDS: THIAMINE INJECTION 100 MG IV (20:30)
--- NOTE | 2025-01-14 23:27 | PTCARENOTE ---
increased DEX gtt, pt agitated and restless, bed alarm on and call jean baptiste in reach
[2025-01-15] VITALS (20 sets, daily range): BP systolic 87–143; BP diastolic 64–98
[2025-01-15] MEDS: ATIVAN 1 MG PO ×2 (02:40→20:51)
[2025-01-15 04:55] LABS: % Basophils 0.9 % (0-2); % Eosinophils 6.3 % (0-6); % Immature Granulocytes 0.6 % (0-0.5); % Lymphocytes 33.2 % (20.5-51.1); % Monocytes 17.5 % (1.7-9.3); % Neutrophils 41.5 % (42.2-75.2); Absolute Eosinophils 0.2 10^3/uL (0-0.7); Absolute Lymphocytes 1.1 10^3/uL (1.2-3.4); Absolute Monocytes 0.6 10^3/uL (0.1-0.6); Absolute Neutrophils 1.4 10^3/uL (1.4-6.5); Hematocrit 38.1 % (37.0-47.0); Hemoglobin 13.7 g/dL (12.0-16.0); Mean Corpuscular Hgb 29.9 pg (27.0-31.0); Mean Corpuscular Volume 83.2 fL (81.0-99.0); Mean Platelet Volume 10.2 fL (7.4-10.4); Nucleated Red Blood Cells % 0 %; Platelet Count 94 10^3/uL (130-400); Red Blood Cell Count 4.58 10^6/uL (4.20-5.40); Red Cell Dist. Width 12.5 % (11.5-14.5); White Blood Cell Count 3.3 10^3/uL (4.8-10.8)
[2025-01-15 05:14] LABS: ALT (SGPT) 79 U/L (0-35); AST (SGOT) 78 U/L (14-36); Albumin 3.9 g/dl (3.5-5.0); Alkaline Phosphatase 114 U/L (38-126); Blood Urea Nitrogen 10 mg/dl (7-17); Calcium 9.5 mg/dl (8.4-10.2); Carbon Dioxide 25 mmol/L (22-30); Chloride 99 mmol/L (98-107); Estimated Creatinine Clearance 103 ml/min; Glucose 147 mg/dl (70-99); Magnesium 1.8 mg/dl (1.6-2.3); Potassium 4.4 mmol/L (3.5-5.1); Sodium 135 mmol/L (135-145); Total Bilirubin 0.8 mg/dl (0.2-1.3); Total Protein 6.5 g/dl (6.3-8.2); eGFR > 60.00
--- NOTE | 2025-01-15 05:17 | PTCARENOTE ---
Pt continues to be restless and agitated, increasing DEX gtt per orders, PRN meds given see DEC, bed alarm on and call jean baptiste in reach
[2025-01-15] MEDS: PRECEDEX 100 IV ×3 (06:06→21:00)
--- NOTE | 2025-01-15 07:00 | PTCARENOTE ---
report received from previous RN. pt resting in bed. pt drowsy, arouses to voice. oriented x2 able to recall month and day, confused on situation and place. pt confused and forgetful. pt 1 assist to get to commode. pt can be impulsive at times. bed
alarm in place. SR on telemetry heart rate in 70-80s at rest. pulses palpable. active bowel sounds. pt on room air lung sounds clear. voiding in commode, occasionally incontinent. precedex infusing at 1 mcg/kg/hr. see worklist for full nursing
assessment and interventions
[2025-01-15] MEDS: PHENOBARBITAL 32.5 MG IV (08:09)
[2025-01-15] MEDS: THIAMINE INJECTION 100 MG IV ×2 (08:10→19:55)
[2025-01-15] MEDS: NEURONTIN 300 MG PO ×3 (08:11→20:51)
[2025-01-15] MEDS: PROTONIX 40 MG PO (08:11)
[2025-01-15] MEDS: CYMBALTA DELAYED RELEASE 60 MG PO (08:11)
[2025-01-15] MEDS: MAGNESIUM OXIDE 500 MG PO ×2 (08:11→19:55)
[2025-01-15] MEDS: FOLVITE 50.2 MG IV (08:11)
--- NOTE | 2025-01-15 08:28 | W.PN.INTV ---
Today's Communication / Plan
Recommendations
Continue Precedex drip
Wean down Precedex drip to lowest therapeutic dose
Continue IV phenobarbital and raise dose to 65mg TID from 32.5mg given her continued WD symptoms despite increasing dose of precedex
Thiamine
PPI
Psych consulted - recs appreciated
Start seroquel
Continue ICU level of care for this critically ill patient
Assessment
-
Assessment: 49-year-old female with a past medical history of chronic alcoholism, history of peptic ulcer disease, asthma, anxiety and depression who presents for alcohol detox. She told triage in the ER that she has been drinking vodka
[id number] with the last drink earlier prior to arrival. Patient is originally from [facility] but was here in [place] for rehab and then stayed here to continue drinking. She came to the ER to seek detoxification from alcohol.
Patient was found to be anxious and tremulous in the ER. Initial vitals showed she was afebrile to 98.1 �F, pulse rate 138, respiratory rate 16, BP 148/108 and saturating 97% on room air. Initial labs showed Hb 16.5, platelet count 71, INR 1.17,
serum chloride level 90, glucose 131, T. bili 1.7, AST 430, ALT 178, hCG negative, marijuana was on her UDS and alcohol level initially 306. She initially was given Ativan in the ER and 1 L NS 0.9% and admitted to the IMU for further care. On
01/13, her agitation and alcohol withdrawal symptoms with confusion worsened despite multiple doses of Ativan. Patient then transferred to the ICU for further care, started on Precedex drip and Arch Support Technician services consulted for additional
management/recommendations.
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
Impression:
#Acute alcoholic withdrawal with impending DT requiring Precedex drip
#Leukopenia
#Chronic thrombocytopenia
#Hyponatremia
#Transaminitis with hyperbilirubinemia due to alcoholic liver injury
#Alcoholic liver disease
#Gallbladder wall thickening with dilated CBD + pancreatic duct dilation
Plan:
- Patient is at high risk for alcohol withdrawal seizure given that she developed withdrawal symptoms with a presentation alcohol level of 306
- Patient had worsening alcohol withdrawal symptoms and was transferred to the ICU on 01/13/2025 and started on Precedex drip
- Continue to wean down on Precedex drip to the lowest required dose
- Continue with thiamine + folic acid
- Continue with phenobarbital + MSAS with prn ativan --> on 01/14, we changed PO meds to IV given difficulty with her taking PO meds, per RN
- Raise phenobarbital dose to 65 mg IV TID from 32.5mg IV TID given her continued withdrawal symptoms and rising Precedex drip dose with continued WD symptoms
- Continue home med: Duloxetine
- Continue with gabapentin but hold for lethargy
- Psych consulted; would also would recommend pt speak with [facility]
- Start Seroquel 25mg BID given agitation throughout the day
- Aspiration precautions
- Maintain SpO2 >90-94%
- prn nebulized bronchodilators - not currently bronchospastic
- Maintain MAP>65
- Replete electrolytes with K>4, Mg>2
- Maintain euglycemia with goal BG 140-180
- GI is following due to MRCP which showed dilated pancreatic duct with an occult lesion not ruled out
- Trend LFTs and T bili
- Eventual CT A/P with contrast - defer this to GI
- GI signed off on 01/14/2025
- Trend H/H and transfuse if needed to keep Hb>7g/dL; keep plt>20k, unless there is concern for bleeding then keep plt>50k
- PPI 40mg daily (home med)
- DVT ppx: Ok to start LMWH given stable/up-trending platelet count
Continue ICU level care for this critically ill patient
Critical care statement: A total of 41 minutes of critical care time was provided for this patient today. This includes management of unstable vital signs, evaluation of the patient at bedside, reviewing the patient's pertinent medical records
including radiographs, microbiology, laboratory evaluations, and discussion with primary team, consultants, pharmacy, nutrition, physical therapy, case management, charge nurse, critical care nursing, and respiratory therapy.
Data:
Abdominal ultrasound 01/11/2025:
1. Increased echogenicity in the liver, compatible with underlying hepatocellular disease, which most commonly relates to fatty infiltration of the liver.
2. Gallbladder wall thickening may be on the basis of systemic congestion. Otherwise no sonographic evidence for cholelithiasis or acute cholecystitis.
3. Dilated common bile duct without compressing cause identified sonographically. Consider MRCP for further evaluation as clinically indicated.
Subjective Dataa
Subjective Data
Date of Service:
Date of Service: January 15, 2025
Chief Complaint: Arch Support Technician Follow Up
Subjective:
Patient was seen and evaluated this morning. Tearful at times, still confused. Heart rate 84, BP 95/75. Currently sitting on the edge of the bed in no acute distress on room air breathing comfortably. Currently on Precedex at 1mcg/kg/hr.
Review of Systems
General: Other (Unobtainable due to altered mental status)
Objective Data
Data Reviewed
Vital Signs / I&O / Oxygen:
Vital Signs
Temp Pulse Resp BP Pulse Ox
98 F 69 14 100/73 95
01/15/25 07:27 01/15/25 06:00 01/15/25 06:00 01/15/25 06:00 01/15/25 06:00
Intake and Output
01/14/25 01/15/25 01/16/25
06:59 06:59 06:59
Intake Total 677.5 / 677.5 486.2 / 486.2
Output Total 200 / 200 300 / 300
Balance 477.5 / 477.5 186.2 / 186.2
SaO2 95
Nasal Cannula flow liters per 3
minute
Physical Exam
General: Respiratory Distress (negative), Chills (negative) and Sweats (negative)
HEENT: Normocephalic and Anicteric
Cardiovascular: S1-S2 and Peripheral Edema (negative)
Respiratory: Clear, Wheeze (negative), Crackles (negative), Rhonchi (negative) and Non-Labored Respirations
GI: Soft, Non Distended, Non Tender and Normal Bowel Sounds
Neurology: Tremors (negative), Lethargic and Other (Moves all 4 extremities spontaneously)
Skin: Warm, Dry, Cyanosis (negative) and Rash (negative)
Labs/Micro/Reports
Lab Data
01/15/25 04:40
01/15/25 04:40
--- NOTE | 2025-01-15 10:44 | CON.MD ---
Consultation - Medical
-
patient seen chart reviewed. spoke with nursing who assisted me in waking patient up which was difficult. patient was oriented to time '2024' and person. asked me what she was doing here and when i asked her where is here she said '[facility]
i was able to get very little information. she has been treated psychiatrically as i can see from the scrips for gabapentin and cymbalta but she was unable to give me any details. this consult was ordered for ? depression but given how sedated she
is at this point it is difficult to say whether she is depressed or whether this is a combo of affective d/o and substance abuse. patient came to w the goal of etoh detox . she was accompanied bu a friend. she was found to have elevated liver
enzymes fatty liver pancreatis dilated bile ducts etc. she has been detoxed w phenobarb and is still receiving signficant ativan as per msas and gabapentin . she appears quite sedated
past psych hx all i know at this point is that she has been in many rehabs in the past and does not stay sober for long. she was dced in november 2024 and stayed sober only a short time
medical hx see above asthma tcp gerd bal 306
fh not known
substance abuse has been drinking daily ten vodka shots friend says more tox + for benzos mj phenobarb perhaps phenobar and bzo from hospital
social needs to be elucidated
mse very groggy speech and thought process slowed bc sedation no clear psychosis cannot estimate mood given sedation. denies si insight judgment lacking denies suicidality
dx etoh used d/o severe r.o affective illness
recommend would try as much as possible to decrease and perhaps dc sedating medication. i would ask whether she needs gabapentin with all the other medications on board. wean precedex as needed. use ativan strictly as per msas. unclear to me
whether cymbalta is helping her either at this point. certainly not with etoh on board. will cut back to 30 mg for now would dc eventually then reassess. will stop by tomorrow to see if patient able to talk.
--- NOTE | 2025-01-15 11:07 | W.PN.HOSP.TC ---
Addendum entered and electronically signed by Jude Sanderson MD 01/15/25 11:29:
#severe protein calorie malnutrition
increase calorie intake
Original Note:
Today's Communication/Plan
-
cont Precedex drip for withdrawal
Assessment / Plan
Assessment / Plan
49yo F with PMHx of alcohol abuse, chronic pancreatitis, asthma, anxiety came with c/o generalized feeling unwell, nausea and vomiting since she was drinking daily for the past months and requesting detox. Managed for acohol withdrawal and also
found dilated CBD, however MRCP was inconclusive for definite reason given limitations.
A/P:
#Alcohol abuse with withdrawal
#Polysubstance abuse
watch for DT
Thiamine/FOlate
Phenobarb taper
MSAS with ativan
Utox: positive for barbiturates, BZD and marijuana
With worsening withdrawal and multiple Ativan doses on 01/13/25 - transferred to ICU for precedex drip
#Transaminitis
#Mild bilirubin elevation
#Fatty liver disease
#Dilated bile duct noted on US
MRCP neg for bladder pathology
No overt cholelithiasis or RUQ pain, Zosyn stopped
GI consult: repeat MRI abd with MRCP when acute withdrawal resolves
INR WNL
No RUQ pain
follow LFT
INR WNL
#Chronic pancreatitis
lipase WNL
#Thrombocytopenia
#Mild leukopenia
2/2 alcohol abuse
follow CBC
#Hypokalemia
replete and follow electrolytes
DVT ppx SCDs 2/2 thrombocytopenia
Full code
I have spent at least 38min reviewing chart, test results, and providing direct patient care
Anticipated Discharge: Within 24 hours
Subjective/Interval History
-
Date of Service: January 15, 2025
Objective Data
-
Labs:
Laboratory Results
01/15/25
04:40
WBC 3.3 L
Hgb 13.7
Hct 38.1
Plt Count 94 L D
Sodium 135
Potassium 4.4
Chloride 99
Carbon Dioxide 25
BUN 10
Creatinine 0.5 L
Glucose 147 H
Calcium 9.5
Total Bilirubin 0.8
AST 78 H
ALT 79 H
Alkaline Phosphatase 114
Vital Signs:
Vital Signs
Temp Pulse Resp BP Pulse Ox
98 F 63 19 95/75 96
01/15/25 07:27 01/15/25 10:00 01/15/25 10:00 01/15/25 10:00 01/15/25 08:21
I&O
01/14/25 01/15/25 01/16/25
06:59 06:59 06:59
Intake Total 677.5 / 677.5 486.2 / 486.2
Output Total 200 / 200 300 / 300
Balance 477.5 / 477.5 186.2 / 186.2
Review of Systems
-
Unable to obtain full review of systems at this time due to: Acuity
History Source: Patient
Physical Exam
-
General: No Apparent Distress
HEENT: Normocephalic
Cardiac: Regular Rhythm
GI: Soft
Neuro: Awake and Alert; Negative Oriented
Psych: Confused
--- NOTE | 2025-01-15 12:00 | PTCARENOTE ---
pt intermittently tearful. some oriented conversations but other times very confused. pt 1 assist to use the commode. new PIV placed. no further changes in assessment noted.
[2025-01-15] MEDS: SEROQUEL 25 MG PO ×2 (12:29→19:56)
[2025-01-15] MEDS: PHENOBARBITAL 65 MG IV ×3 (12:36→20:51)
--- NOTE | 2025-01-15 16:00 | PTCARENOTE ---
pt remains impulsive at times, took out two new IVs that were placed. no further changes in assessment noted.
[2025-01-15] MEDS: LOVENOX 40 MG SC (17:58)
[2025-01-15] MEDS: NICODERM TRANSDERMAL 21 MG TRANSDERM (19:55)
--- NOTE | 2025-01-15 20:00 | PTCARENOTE ---
rec`d pt at 1900 impulsive, trying to get OOB, Precedex gtt continued at 0.6. pt also tearful. MSAS continued. SR to ST on monitor. +pulses. RA. POX 97%. uses commode. left noted to be swollen and tender to touch. call jean baptiste in reach, safe
environment maintained.
--- NOTE | 2025-01-15 22:57 | PTCARENOTE ---
pt called me into her room and complained of left neck/jaw pain. site is swollen. SUZE Harry aware. CT scan ordered.
[2025-01-15] MEDS: NSS (PRESERVATIVE FREE) 0.5 ML IV (23:14)
[2025-01-15] MEDS: ATIVAN 1 MG IV (23:15)
--- NOTE | 2025-01-15 23:55 | W.PN.UPDATE ---
Update Note
Progress Note Update
01/15/25 at 2245
Patient called complaining of sudden left sided neck and jaw swelling/pain. Upon palpation, hard area of the soft tissue with swelling and redness noted left submandibular and left lateral neck. Ctscan of the neck ordered. Ctscan of the neck
results: asymmetric enlargement of the left parotid gland, with overlying inflammatory stranding, and associated platysma thickening, as well as stranding/edema within the left submandibular space. Constellation of findings likely represents left
sided parotitis and contiguous reactive submandibular sialoadenitis. Consulted Dr. Vanegas, ENT for left submandibular swelling/parotitis/submandibular sialoadenitis. Patient remains afebile unclear etiology at this time, will obtain
labs/cultures/chest xray, initiate antibiotics and steroids, prn pain medication.
[2025-01-16] VITALS (21 sets, daily range): BP systolic 84–139; BP diastolic 49–92
[2025-01-16] MEDS: ProAIR HFA INHALER 2 PUFF INH ×2 (00:50→23:55)
[2025-01-16] MEDS: DECADRON 4 MG IV ×3 (02:37→17:06)
[2025-01-16 02:41] LABS: % Basophils 0.2 % (0-2); % Eosinophils 1.4 % (0-6); % Immature Granulocytes 0.7 % (0-0.5); % Lymphocytes 11.5 % (20.5-51.1); % Monocytes 16.8 % (1.7-9.3); % Neutrophils 69.4 % (42.2-75.2); Absolute Eosinophils 0.1 10^3/uL (0-0.7); Absolute Lymphocytes 0.7 10^3/uL (1.2-3.4); Absolute Neutrophils 4.1 10^3/uL (1.4-6.5); Hemoglobin 13.8 g/dL (12.0-16.0); Mean Corp Hgb Conc. 36.3 g/dL (33.0-37.0); Mean Corpuscular Hgb 30.5 pg (27.0-31.0); Mean Corpuscular Volume 83.9 fL (81.0-99.0); Mean Platelet Volume 9.3 fL (7.4-10.4); Nucleated Red Blood Cells % 0 %; Platelet Count 114 10^3/uL (130-400); Red Blood Cell Count 4.53 10^6/uL (4.20-5.40); Red Cell Dist. Width 12.9 % (11.5-14.5); White Blood Cell Count 5.8 10^3/uL (4.8-10.8)
[2025-01-16 02:52] LABS: COVID-19 Antigen Negative (Negative)
[2025-01-16 02:57] LABS: ALT (SGPT) 76 U/L (0-35); AST (SGOT) 55 U/L (14-36); Albumin 4.6 g/dl (3.5-5.0); Alkaline Phosphatase 124 U/L (38-126); Blood Urea Nitrogen 7 mg/dl (7-17); Calcium 9.4 mg/dl (8.4-10.2); Carbon Dioxide 23 mmol/L (22-30); Chloride 97 mmol/L (98-107); Estimated Creatinine Clearance 103 ml/min; Glucose 125 mg/dl (70-99); Magnesium 1.9 mg/dl (1.6-2.3); Potassium 4.1 mmol/L (3.5-5.1); Sodium 134 mmol/L (135-145); Total Bilirubin 0.9 mg/dl (0.2-1.3); Total Protein 7.1 g/dl (6.3-8.2); eGFR > 60.00
[2025-01-16] MEDS: DILAUDID 0.5 MG IV ×6 (03:01→23:52)
[2025-01-16 03:52] LABS: Lactic Acid 0.9 mmol/L (0.7-2.0)
--- NOTE | 2025-01-16 06:49 | W.PN.HOSP.TC ---
Today's Communication/Plan
-
Change to Unasyn
Cut back on Steroid
Stop Seroquel for now
Increase thiamine
Assessment / Plan
Assessment / Plan
Physical Exam
General: not in Respiratory Distress
HEENT: Normocephalic and Anicteric
Cardiovascular: S1-S2
Respiratory: Clear, no Wheeze
GI: Soft, Non Distended, Non Tender and Normal Bowel Sounds
Neurology: Awake, confused, answer questions at times, followed simple commands. No tremor
Psych: sedated, positive hallucinations
Skin: Warm, Dry,no Cyanosis, no rash
49yo F with PMHx of alcohol abuse, chronic pancreatitis, asthma, anxiety came with c/o generalized feeling unwell, nausea and vomiting since she was drinking daily for the past months and requesting detox. Managed for acohol withdrawal and also
found dilated CBD, however MRCP was inconclusive for definite reason given limitations.
A/P:
# Acute left parotid gland and submandibular gland infection
Start the patient on IV Unasyn
c/w pain control
Cut back on IV steroid to BID
f/w ENT recommendations
# Hyponatremia
# Hypokalemia, resolved
# Severe protein calorie malnutrition
f/w Nutrition
#Alcohol abuse with withdrawal
#Polysubstance abuse
She has visual hallucinations
c/w high dose Thiamine protocol. Will do Thiamine 500 mg
Folic aicd
Phenobarb taper
Hold Seroquel while on Precedex drip and Phenobarb
MSAS with Ativan
Utox: positive for barbiturates, BZD and marijuana
With worsening withdrawal and multiple Ativan doses on 01/13/25 - transferred to ICU for Precedex drip
#Transaminitis due to ETOH use
#Mild bilirubin elevation
#Fatty liver disease
#Dilated bile duct noted on US
She denies abdominal pain
MRCP neg for bladder pathology
No overt cholelithiasis or RUQ pain, Zosyn stopped
GI consult: repeat MRI abd with MRCP, can be done as OP
INR WNL
No RUQ pain
follow LFT
INR WNL
#Chronic pancreatitis
lipase WNL
#Thrombocytopenia
#Mild leukopenia
2/2 alcohol abuse
follow CBC
#Hypokalemia
replete and follow electrolytes
DVT ppx SCDs 2/2 thrombocytopenia
Full code
Total time spent to see the patient, examine the patient, review data and lab results, discuss treatment plan with patient, staff around 55 minutes
Anticipated Discharge: > 48 hours
Subjective/Interval History
-
Date of Service: January 16, 2025
She complains of left neck pain
No fever
still feels hallucinations , visual
Objective Data
-
Labs:
Laboratory Results
01/16/25
02:24
WBC 5.8
Hgb 13.8
Hct 38.0
Plt Count 114 L D
Sodium 134 L
Potassium 4.1
Chloride 97 L
Carbon Dioxide 23
BUN 7
Creatinine 0.5 L
Glucose 125 H
Calcium 9.4
Total Bilirubin 0.9
AST 55 H
ALT 76 H
Alkaline Phosphatase 124
Vital Signs:
Vital Signs
Temp Pulse Resp BP Pulse Ox
98 F 108 10 105/72 96
01/16/25 00:48 01/16/25 04:39 01/16/25 04:39 01/16/25 04:39 01/15/25 20:00
I&O
01/14/25 01/15/25 01/16/25
06:59 06:59 06:59
Intake Total 677.5 / 677.5 486.2 / 486.2 182.7 / 182.7
Output Total 200 / 200 300 / 300 1525 / 1525
Balance 477.5 / 477.5 186.2 / 186.2 -1342.3 / -1342.3
[2025-01-16] MEDS: PROTONIX 40 MG PO (07:36)
[2025-01-16] MEDS: PHENOBARBITAL 65 MG IV ×2 (07:36→15:52)
[2025-01-16] MEDS: FOLVITE 50.2 MG IV (07:36)
[2025-01-16] MEDS: MAGNESIUM OXIDE 500 MG PO ×2 (07:36→20:45)
--- NOTE | 2025-01-16 08:00 | PTCARENOTE ---
report received from previous RN. Pt resting in bed. pt drowsy, arouses to voice. pt able to answer all orientation questions correctly. intermittently confused and restless. precedex infusing. pt reports left sided neck pain, area swollen, red-
received 0.5 dilaudid around 0630. SR on telemetry heart rate 70-80s at rest. low 100s with activity. pt on room air, sat 98%. lung sounds clear. hypoactive bowel sounds, poor appetite. voiding in commode- some stress incontinence at times. pt
updated on plan of care. pt very tearful and emotional- support and reassurance provided. see worklist for full nursing assessment and interventions.
--- NOTE | 2025-01-16 08:27 | W.PN.INTV ---
Today's Communication / Plan
Recommendations
Continue Precedex drip
Wean down Precedex drip to lowest therapeutic dose
Continue IV phenobarbital
Thiamine
PPI
Psych consulted - recs appreciated
Resume duloxetine + gabapentin
ENT consulted � continue Unasyn, + Decadron. Recommend warm compresses and treat with ibuprofen TID
Continue ICU level of care for this critically ill patient
Assessment
-
Assessment: 49-year-old female with a past medical history of chronic alcoholism, history of peptic ulcer disease, asthma, anxiety and depression who presents for alcohol detox. She told triage in the ER that she has been drinking vodka
[id number] with the last drink earlier prior to arrival. Patient is originally from [facility] but was here in [place] for rehab and then stayed here to continue drinking. She came to the ER to seek detoxification from alcohol.
Patient was found to be anxious and tremulous in the ER. Initial vitals showed she was afebrile to 98.1 �F, pulse rate 138, respiratory rate 16, BP 148/108 and saturating 97% on room air. Initial labs showed Hb 16.5, platelet count 71, INR 1.17,
serum chloride level 90, glucose 131, T. bili 1.7, AST 430, ALT 178, hCG negative, marijuana was on her UDS and alcohol level initially 306. She initially was given Ativan in the ER and 1 L NS 0.9% and admitted to the IMU for further care. On
01/13, her agitation and alcohol withdrawal symptoms with confusion worsened despite multiple doses of Ativan. Patient then transferred to the ICU for further care, started on Precedex drip and [employer] services consulted for additional
management/recommendations.
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
Impression:
#Acute alcoholic withdrawal with impending DT requiring Precedex drip
#Acute left parotid gland parotitis with reactive submandibular sialadenitis
#Leukopenia
#Chronic thrombocytopenia
#Hyponatremia
#Transaminitis with hyperbilirubinemia due to alcoholic liver injury � bilirubin now normal
#Alcoholic liver disease
#Gallbladder wall thickening with dilated CBD + pancreatic duct dilation
Plan:
- Patient is at high risk for alcohol withdrawal seizure given that she developed withdrawal symptoms with a presentation alcohol level of 306
- Patient had worsening alcohol withdrawal symptoms and was transferred to the ICU on 01/13/2025 and started on Precedex drip
- Continue to wean down on Precedex drip to the lowest required dose
- Continue with thiamine + folic acid
- Continue with phenobarbital + MSAS with prn ativan --> on 01/14, we changed PO meds to IV given difficulty with her taking PO meds, per RN
- On 01/15, we raised phenobarbital dose to 65 mg IV TID from 32.5mg IV TID given her continued withdrawal symptoms and rising Precedex drip dose with continued WD symptoms
- Continue home med: Duloxetine (was DC'd by psychiatry but this was resumed as patient takes this at home and could there is risk in abruptly discontinuing this medication)
- Continue with gabapentin but hold for lethargy
- Psych consulted; would also would recommend pt speak with [facility]
- We started Seroquel 25mg BID on 01/15 but psych DC'd this
- Aspiration precautions
- Maintain SpO2 >90-94%
- prn nebulized bronchodilators - not currently bronchospastic
- Regarding her left-sided parotitis, start ibuprofen 3 times daily and give a dose of Toradol now given her severe pain.
- prn opioids for severe breakthrough pain treatment
� ENT consulted --> likely developed left parotitis due to patient's chronic poor PO intake. Continue with Unasyn and systemic steroids resumed with Decadron
� No signs of salivary stone seen on imaging with CT neck
� Check for mumps serology with IgM + IgG
- Apply warm compress
- Maintain MAP>65
- Replete electrolytes with K>4, Mg>2
- Maintain euglycemia with goal BG 140-180
- GI is following due to MRCP which showed dilated pancreatic duct with an occult lesion not ruled out
- Trend LFTs and T bili
- Eventual CT A/P with contrast - defer this to GI
- GI signed off on 01/14/2025
- Trend H/H and transfuse if needed to keep Hb>7g/dL; keep plt>20k, unless there is concern for bleeding then keep plt>50k
- PPI 40mg daily (home med)
- DVT ppx: LMWH (just need to monitor her platelet count)
Continue ICU level care for this critically ill patient
Critical care statement: A total of 38 minutes of critical care time was provided for this patient today. This includes management of unstable vital signs, evaluation of the patient at bedside, reviewing the patient's pertinent medical records
including radiographs, microbiology, laboratory evaluations, and discussion with primary team, consultants, pharmacy, nutrition, physical therapy, case management, charge nurse, critical care nursing, and respiratory therapy.
Data:
Abdominal ultrasound 01/11/2025:
1. Increased echogenicity in the liver, compatible with underlying hepatocellular disease, which most commonly relates to fatty infiltration of the liver.
2. Gallbladder wall thickening may be on the basis of systemic congestion. Otherwise no sonographic evidence for cholelithiasis or acute cholecystitis.
3. Dilated common bile duct without compressing cause identified sonographically. Consider MRCP for further evaluation as clinically indicated.
Subjective Dataa
Subjective Data
Date of Service:
Date of Service: January 16, 2025
Chief Complaint: [employer] Follow Up
Subjective:
Patient was seen and evaluated today at bedside. Overnight her left parotid gland got more swollen and painful. CT neck shows left parotitis with contiguous reactive left submandibular sialoadenitis. She currently is in pain on the left side of
her jaw down her neck and side of her face in front of her ear. She is tearful. She otherwise denies chest pain or shortness of breath. Currently on Precedex at 0.8 mcg/kg/hr.
Review of Systems
General: Other (Negative unless mentioned above)
Objective Data
Data Reviewed
Vital Signs / I&O / Oxygen:
Vital Signs
Temp Pulse Resp BP Pulse Ox
97.5 F 87 20 91/67 98
01/16/25 08:29 01/16/25 08:00 01/16/25 08:00 01/16/25 08:00 01/16/25 08:00
Intake and Output
01/15/25 01/16/25 01/17/25
06:59 06:59 06:59
Intake Total 486.2 / 486.2 182.7 / 182.7 493.2 / 493.2
Output Total 300 / 300 1525 / 1525
Balance 186.2 / 186.2 -1342.3 / -1342.3 493.2 / 493.2
SaO2 98
Nasal Cannula flow liters per 3
minute
Physical Exam
General: Respiratory Distress (negative), Chills (negative) and Sweats (negative)
HEENT: Normocephalic, Anicteric, Other (Tenderness to palpation of left parotid gland region with erythema and edema) and Other (No obvious rotting teeth seen or any ulceration seen inside of her mouth)
Cardiovascular: S1-S2 and Peripheral Edema (negative)
Respiratory: Clear, Wheeze (negative), Crackles (negative), Rhonchi (negative) and Non-Labored Respirations
GI: Soft, Non Distended, Non Tender and Normal Bowel Sounds
Neurology: Awake, Tremors (negative) and Other (Drowsy but answering questions appropriately)
Skin: Warm, Dry, Cyanosis (negative) and Rash (negative)
Labs/Micro/Reports
Lab Data
01/16/25 02:24
01/16/25 02:24
Microbiology
01/16/25 02:24 Nasal Swab Influenza Types A & B (TONIA) - Final
Negative for Influenza A & B, NAAT
Negative results must be combined with clinical observations
and patient history.
Nucleic Acid Amplification test (NAAT)performed on the
[employer] platform.
[2025-01-16] MEDS: UNASYN IV ×3 (08:43→20:45)
--- NOTE | 2025-01-16 09:14 | CON.ID ---
Consultation
-
Date/Time Consultation Requested: January 16, 2025705
Date/Time Consultation Performed: January 16, 2025 0915
Requesting Provider: Dr. Dilia Vincent
Performing Provider: Dr. Larissa Dailey
Reason for Consultation: Parotid gland infection
Chief Complaint / Past History
Chief Complaint
Acute left neck pain
History of Present Illness
49-year-old female with asthma, alcoholic use disorder who presented to the hospital on January 11 due to alcohol withdrawal. Patient was hospitalized in September with alcohol withdrawal. She then went to rehab and was released in November. She
relapsed and started to drink again on her birthday. Since then she was constantly drinking. Her friend noted patient was tremulous. She was therefore brought to the ER. Alcohol level 302. LFTs elevated. MRCP no choledocholithiasis. CAT scan
shows chronic pancreatitis. Patient was treated for delirium tremens. Last night she developed acute onset of left neck pain and swelling that extends up to her face. CAT scan of the neck showed inflammatory fat stranding and edema left facial
soft tissue suspicious for left proctitis with contiguous reactive left submandibular sialadenitis; no sialolith. Patient complains of severe pain. This has never happened before. She had her MMR vaccine in the past.
Past History
Additional Past Medical History:
Asthma
Peptic ulcer disease
Alcohol use disorder
Chronic pancreatitis
Chronic thrombocytopenia
Anxiety/depression
Allergy History:
codeine Allergy (Verified 10/12/24 18:28)
Vomiting
Medications Reviewed: Yes
Current Antibiotics:
Unasyn d1
Social History
Tobacco: Vaping
Alcohol: Daily (10 shots of vodka a day)
Drug: None
Employment: Not Employed
Family History
Family History: Not Pertinent
Review of Systems
Review of Systems
General: Change in Appetite; Negative Fever or Chills
HEENT: Negative Sinus Problems, Headache or Pharyngitis
Cardiovascular: Negative Chest Pain or Dyspnea
Respiratory: Negative Dyspnea or Cough
Gasteroenterology: Negative Nausea, Vomiting or Diarrhea
Genital / Urological: Negative Dysuria or Flank Pain
Endocrine: Weakness
Neurological: Negative Dizziness
All systems: All other systems were reviewed and were negative
Vital Signs
Temp Pulse Resp BP Pulse Ox
97.5 F 87 20 91/67 98
01/16/25 08:29 01/16/25 08:00 01/16/25 08:00 01/16/25 08:00 01/16/25 08:00
Physical Exam
Physical Exam
Constitutional: Acutely Ill
Head: Other (Left parotid + edema/erythema/warmth/tender, erythema extends down to neck subclavian with bright erythema)
Eyes: No Conjunctival Hemorrhage and Sclera Anicteric
Oral: Other (moist)
Cardiovascular: Regular Rate and S1/S2
Pulmonary: Clear
Gastrointestinal: Soft, Non Tender, Non Distended and Normal Bowel Sounds
Genito-Urinary: Negative CVA Tenderness
Extremities: Negative Edema
Musculoskeletal: Negative Spinal Tenderness
Neurological: AO x 3
Lab / Diagnostic Study Results
01/16/25 02:24
01/16/25 02:24
Abs Immat Gran (auto) 0.0 10^3/uL (0-0.05) 01/16/25 02:24
Absolute Neuts (auto) 4.1 10^3/uL (1.4-6.5) 01/16/25 02:24
Absolute Lymphs (auto) 0.7 10^3/uL (1.2-3.4) L 01/16/25 02:24
Absolute Monos (auto) 1.0 10^3/uL (0.1-0.6) H 01/16/25 02:24
Absolute Basos (auto) 0.0 10^3/uL (0-0.2) 01/16/25 02:24
Immature Gran % 0.7 % (0-0.5) H 01/16/25 02:24
Neutrophils % 69.4 % (42.2-75.2) 01/16/25 02:24
Lymphocytes % 11.5 % (20.5-51.1) L 01/16/25 02:24
Monocytes % 16.8 % (1.7-9.3) H 01/16/25 02:24
Eosinophils % 1.4 % (0-6) 01/16/25 02:24
Basophils % 0.2 % (0-2) 01/16/25 02:24
PT 14.5 Sec (11.4-14.6) 01/12/25 04:37
INR 1.09 01/12/25 04:37
Lactic Acid 0.9 mmol/L (0.7-2.0) 01/16/25 02:24
Microbiology Results
Micro:
01/16/25 02:24 Influenza Types A & B (TONIA) - Final
Nasal Swab Negative for Influenza A & B, NAAT
Negative results must be combined with clinical observations
and patient history.
Nucleic Acid Amplification test (NAAT)performed on the
[employer] platform.
01/16/25 02:24 Blood Culture - Pending
Blood/Venous
01/16/25 02:29 Blood Culture - Pending
Blood/Venous
01/15/[address]: Inflammatory fat stranding and mild edema in the left facial soft tissues most suspicious for left parotitis with some contiguous reactive left submandibular sialadenitis.
01/12/25 MRCP: Significantly limited examination secondary to incomplete sequences. Within these limitations, no clear evidence for choledocholithiasis. The main pancreatic duct is dilated. An occult lesion at the level of the head of the pancreas
cannot be excluded, but the patient does have chronic pancreatitis with multiple pancreatic calcifications noted on the previous CT, which likely correspond to the areas of irregular low signal intensity in the pancreatic parenchyma on this exam. A
follow-up ERCP or endoscopic ultrasound could be considered if clinically indicated.
01/11/25 ABD US: Increased echogenicity in the liver, compatible with underlying hepatocellular disease, which most commonly relates to fatty infiltration of the liver.
2. Gallbladder wall thickening may be on the basis of systemic congestion. Otherwise no sonographic evidence for cholelithiasis or acute cholecystitis.
3. Dilated common bile duct without compressing cause identified sonographically. Consider MRCP for further evaluation as clinically indicated.
Assessment / Plan
# Acute left parotitis
- Agree with Unasyn
- Add IV Vancomycin as pt with h/o left chest MRSA soft tissue abscess (09/2024).
- Apply warm compress.
# Alcohol abuse with withdrawal
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
Asthma
Peptic ulcer disease
Alcohol use disorder
Chronic pancreatitis
Chronic thrombocytopenia
Anxiety/depression
[2025-01-16] MEDS: THIAMINE INJECTION 255 MG IV ×3 (09:28→23:51)
[2025-01-16] MEDS: ATIVAN 1 MG PO ×2 (09:28→18:20)
[2025-01-16] MEDS: DILAUDID 1 MG IV (09:44)
--- NOTE | 2025-01-16 10:04 | PHA.VAN.IN ---
Assessment
- Assessment
Renal Function: Appears similar to baseline
Concomitant Antimicrobials: ampicillin/sulbactam
AUC Dosing Plan
- Dosing Variables
Dosing Weight (kg): 66
Dosing CrCl (ml/min): 103
Vd coefficient (L/kg): 0.7
- Empiric Dosing
Maintenance Regimen: 1000mg Q12H - first dose now then 1800 in lieu of load
Estimated AUC (mcg*h/mL): 503
Estimated Peak (mcg*h/mL): 32.8
Estimated Trough (mcg/ml): 12.2
Estimated Half Life (H): 7.7
- Monitoring
No levels ordered at this time: consider levels in next few days
Pharmacokinetics Vancomycin I
- -
Patient Age: 49
Patient Sex: Female
Vancomycin Day #: 1
Indication: Eye Or Ent Infection
Requesting Provider: Dr. Dailey
Pertinent Antimicrobial Allergies:
no pertinent antibiotic allergies
Height / Weight:
Height 5 ft 5 in
Actual Weight 65.941 kg
- Vital Signs / Lab Results
Temp Pulse Resp BP Pulse Ox
97.5 F 83 21 111/81 98
01/16/25 08:29 01/16/25 09:00 01/16/25 09:00 01/16/25 09:00 01/16/25 08:00
Lab Results - Hematology
01/14/25 01/15/25 01/16/25
02:49 04:40 02:24
WBC 4.0 L 3.3 L 5.8
Lab Results - Chemistry
01/14/25 01/14/25 01/15/25
02:49 04:01 04:40
BUN Cancelled 9 10
Creatinine Cancelled 0.5 L 0.5 L
Estimated Creat Clear Cancelled 103 103
Albumin Cancelled 3.6 3.9
01/16/25
02:24
BUN 7
Creatinine 0.5 L
Estimated Creat Clear 103
Albumin 4.6
01/16/25
02:24
Lactic Acid 0.9
Microbiology Results
01/16/25 02:24 Influenza Types A & B (TONIA) - Final
Nasal Swab Negative for Influenza A & B, NAAT
Negative results must be combined with clinical observations
and patient history.
Nucleic Acid Amplification test (NAAT)performed on the
[employer] platform.
[2025-01-16] MEDS: NEURONTIN 300 MG PO ×3 (10:58→20:45)
[2025-01-16] MEDS: CYMBALTA DELAYED RELEASE 60 MG PO (10:58)
[2025-01-16] MEDS: TORADOL 15 MG IV (10:58)
[2025-01-16] MEDS: VANCOCIN 200 IV ×2 (10:58→17:06)
--- NOTE | 2025-01-16 11:13 | CON.MD ---
Consultation - Medical
-
Left facial swelling
49 yo with EtOH abuse admitted for detox.
Poor oral intake
Notes 1 day Hx of Left facial pain and swelling
CT scan shows L parotitis , no stone or abscess
L parotid with edema, tenderness, erythema
A/P Left parotitis
Develops in patients with poor po intake, electrolyte issues
Usually from Staph or strep
Agree with Unasyn
Continue few more doses of steroids
IV fluids, encourage po hydration
Warm compresses
Pain meds as needed
--- NOTE | 2025-01-16 11:15 | W.PN.UPDATE ---
Update Note
Progress Note Update
patient seen chart reviewed. spoke with nursing. the patient was alert and oriented today and was able to talk to me. this is a marked improvement from yesterday. still on precedex....she seems to be receiving much less ativan at this point hence
sedation is improved. unfortunately she was suffereing from what appears to be parotid inflammation and swelling. awaiting ent consult. she said it was hard for her to talk as she was in so much pain. awaiting ent consult. will dc zyprexa im which
i don't see is needed at this point. will come by her room later this afternoon to see if she is any better and able to engage.
[2025-01-16] MEDS: PRECEDEX 100 IV (12:58)
--- NOTE | 2025-01-16 14:46 | W.PN.UPDATE ---
Update Note
Progress Note Update
returned to see patient this afternoon. spoke w nursing. patient has been seen by ent re parotitis. she is in a great deal of pain. nursing gave her dilaudid as we spoke. she rated the pain as 9.5 on a zero to ten scale. she was able to focus
only minimally on her psych issues. dr bazzi asked me about the cymbalta and gabapentin. i had decreased cymbalta to 30 mg and he reincreased it on the advice of pharmacy to 60 mg. patient was able to say she was not sure it had really helped her
at this point. will leave as is for now as it does have some impact re pain. she also said she was unsure re gabapentin but inc this to qid with the hope that it too migh help w parotid pain. when she is more able to discuss will make a plan as to
how to proceed w psych meds from here. patient also said she felt she was suffering from withdrawal. she remains on phenobarbital. there could be a concomitant of wd which hopefully will be easing further in the next few days.
[2025-01-16] MEDS: MOTRIN 400 MG PO ×2 (15:52→20:45)
[2025-01-16] MEDS: LOVENOX 40 MG SC (17:06)
[2025-01-16] MEDS: TYLENOL 650 MG PO (17:06)
--- NOTE | 2025-01-16 18:50 | PTCARENOTE ---
Patient received from the ED, transferred to and admitted to ICU bed 3363. Received on Insulin gtt at 5Units/hr via Left AC #18, IV site WDL. Right AC SL #20 with good blood return, flushed. See admission assessment on worklist/flowsheet. He is
awake, alert and oriented. His in currently in [place] visiting her sister who has pancreatic cancer. Patient lives on ground floor of 3 story house and he says his son lives downstairs. Patient is wheelchair bound and has issues with
chronic incontinence and dribbling from past surgery from Prostate CA. He has significant MASD with yeast infection present on entirety of scrotum as well as bilateral inner thighs. Some mild MASD bilateral lower abdominal folds at groin. Skin care
given. ABD pads placed between scrotum and thighs. Left lateral calf wound cleansed with NS, placed Xeroform dressing and wrapped in Kerlix. Border foam dressings placed on Left buttock wounds x 2. BBS clear except left lung diminished. Afebrile.
VSS. S1 S2 irregular with positive murmur, Afib on CM. Abdomen soft with positive bowel sounds. Reports BM this morning. BLE very red, LLE from knee down and RLE foot. Pulses palpable x 4 extremities, BLE edema 2+. Bed in low and locked position,
call light within reach.
--- NOTE | 2025-01-16 20:00 | PTCARENOTE ---
Patient received sitting up in bed, awake but drowsy. Oriented x 3. However, she occasionally visually hallucinates stating she keeps thinking someone in sitting in the chair. Anxious and tearful at times, emotional support and encouragement given
with active listening. On Precedex gtt via left hand at thumb area--good blood return and flushes well. IVF with IVPB right FA/wrist--site slightly swollen but not infiltratedSee MSAS assessments. BBS clear but diminished t/o, respirations shallow
but nonlabored. S1S2 tachycardic. ST on CM with HR 110-120s. She currently c/o left sided cheek/jaw pain that extends down to her neck. She refuses cold or warm compresses. Prn Dilaudid given, see MAR. Left cheek/jaw area is notably swollen and
firm, very tender, reddened. Redness extends across left cheek and along left jawline down to left clavicular region--reddened area marked with a pen. She was unable to eat dinner tray provided due to left jaw/cheek pain. She is able to drink fluids
without difficulty. Positive pulses x 4 extremities, no edema. Bed in low and locked position, call jean baptiste within reach.
[2025-01-16] MEDS: LUMINAL 32.4 MG PO (20:47)
--- NOTE | 2025-01-16 22:00 | PTCARENOTE ---
Precedex gtt titrated down due to low MSAS and patient drowsiness. Also SBP 88, MAP good. Watching TV, dozing intermittently.
[2025-01-17] VITALS (37 sets, daily range): BP systolic 82–174; BP diastolic 55–116
--- NOTE | 2025-01-17 | PTCARENOTE ---
Assisted patient to BSC with SBA, gait slightly unsteady. Voids carmella urine but is incontinent of some urine due to urgency, wearing attends. Skin care/perineal care. Assisted back to bed. Complete CHG cloth bath with linen change. New attends
donned. HR 130-140s with activity. HR Returns to 100-110s with rest. Denies CP or SOB. Requests inhaler--given per RT. Rest of assessment essentially unchanged. Refusing BLE SCDs.
[2025-01-17] MEDS: PRECEDEX 100 IV (00:05)
[2025-01-17] MEDS: DECADRON 4 MG IV ×3 (01:42→17:27)
[2025-01-17] MEDS: UNASYN IV ×4 (01:42→20:45)
[2025-01-17] MEDS: DILAUDID 0.5 MG IV ×3 (01:49→23:25)
--- NOTE | 2025-01-17 04:00 | PTCARENOTE ---
Patient appears to be sleeping comfortably when undisturbed with eyes closed, lying still, respirations nonlabored. BP soft but MAP stable. Rest of physical assessment unchanged.
--- NOTE | 2025-01-17 05:00 | PTCARENOTE ---
Assisted to BSC, voids without difficulty. Assisted back to bed. Medicated for pain.
[2025-01-17] MEDS: VANCOCIN 200 IV ×2 (05:23→17:30)
--- NOTE | 2025-01-17 06:00 | PTCARENOTE ---
Right FA/wrist IV site leaking. New IV inserted by Evita Carl RN right FA #20, good blood return, labs drawn. Right FA/wrist site dc'd, catheter intact. Continue to wean down Precedex.
--- NOTE | 2025-01-17 07:00 | PTCARENOTE ---
Report given verbally to oncmary lou singleton, Heide BENEDICT. Questions answered.
[2025-01-17 07:12] LABS: Blood Urea Nitrogen 8 mg/dl (7-17); Calcium 7.9 mg/dl (8.4-10.2); Carbon Dioxide 25 mmol/L (22-30); Chloride 101 mmol/L (98-107); Estimated Creatinine Clearance 103 ml/min; Glucose 149 mg/dl (70-99); Magnesium 1.8 mg/dl (1.6-2.3); Potassium 3.8 mmol/L (3.5-5.1); Sodium 131 mmol/L (135-145); eGFR > 60.00
--- NOTE | 2025-01-17 07:13 | W.PN.HOSP.TC ---
Today's Communication/Plan
-
Mild clinical improvement
Better mentation: Phenobarb taper with overlap Gabapentin, can titrate up Gabapentin to wean off Precedex.
Eventual consideration to anti-depression treatment but will be challenging when substance use exists.
Out of ICU once Precedex is off
Assessment / Plan
Assessment / Plan
Physical Exam
General: not in Respiratory Distress
HEENT: Normocephalic and Anicteric, less tender swelling in left lower side of face
Cardiovascular: S1-S2
Respiratory: Clear, no Wheeze
GI: Soft, Non Distended, Non Tender and Normal Bowel Sounds
Neurology: Awake, confused, answer questions at times, followed simple commands. No tremor
Psych: sedated, positive hallucinations
Skin: Warm, Dry,no Cyanosis, no rash
49yo F with PMHx of alcohol abuse, chronic pancreatitis, asthma, anxiety came with c/o generalized feeling unwell, nausea and vomiting since she was drinking daily for the past months and requesting detox. Managed for acohol withdrawal and also
found dilated CBD, however MRCP was inconclusive for definite reason given limitations.
A/P:
# Acute left parotitis gland and submandibular gland infection
Less pain and swelling, able to talk
Afebrile over night
Start the patient on IV Unasyn & Vancomycin
Negative blood culture
+ MRSA screen
c/w pain control, added IV steroid with Ibuprofen
C/W hydration & arm compresses
Appreciate ENT & ID help
# Hyponatremia
c/w Oral intake
# Hypokalemia, resolved
# hypomagnesemia
c/w oral Mg.
# Severe protein calorie malnutrition
f/w Nutrition
#Alcohol abuse with withdrawal
#Polysubstance abuse
Much less visual hallucinations. She is more alert, able to hold conversation. Upset and sad about her alcoholism, tearful.
c/w high dose Thiamine, doses are ordered.
Folic acid
Phenobarb taper with overlap Gabapentin, can titrate up Gabapentin to wean off Precedex.
Stopped Seroquel while on on sedatives for now, eventual consideration to anti-depression treatment.
MSAS with Ativan
Utox: positive for barbiturates, BZD and marijuana
With worsening withdrawal and multiple Ativan doses on 01/13/25 - transferred to ICU for Precedex drip
#Transaminitis due to ETOH use
#Mild bilirubin elevation
#Fatty liver disease
#Dilated bile duct noted on US
She denies abdominal pain
MRCP neg for bladder pathology
No overt cholelithiasis or RUQ pain, Zosyn stopped
GI consult: repeat MRI abd with MRCP, can be done as OP
INR WNL
No RUQ pain
follow LFT
INR WNL
#Chronic pancreatitis
lipase WNL
#Pancytopenia due to alcohol abuse
CBC is recovering. No bleeding.
#Hypokalemia
replete and follow electrolytes
DVT ppx SCDs 2/2 thrombocytopenia
Full code
Total time spent to see the patient, examine the patient, review data and lab results, discuss treatment plan with patient, staff around 55 minutes
Anticipated Discharge: > 48 hours
Subjective/Interval History
-
Date of Service: January 17, 2025
She is upset about her alcoholism problem
Less pain in left cheek
No fevers
Less hallucinations
Objective Data
-
Labs:
Laboratory Results
01/17/25 01/17/25
05:55 06:29
Sodium Cancelled 131 L
Potassium Cancelled 3.8
Chloride Cancelled 101
Carbon Dioxide Cancelled 25
BUN Cancelled 8
Creatinine Cancelled 0.5 L
Glucose Cancelled 149 H
Calcium Cancelled 7.9 L D
Vital Signs:
Vital Signs
Temp Pulse Resp BP Pulse Ox
99.2 F 93 11 91/61 95
01/17/25 03:37 01/17/25 04:00 01/17/25 04:00 01/17/25 04:00 01/17/25 04:00
I&O
01/16/25 01/17/25 01/18/25
06:59 06:59 06:59
Intake Total 182.7 / 182.7 1645.8 / 1645.8
Output Total 1525 / 1525 700 / 700
Balance -1342.3 / -1342.3 945.8 / 945.8
[2025-01-17] MEDS: CYMBALTA DELAYED RELEASE 60 MG PO (07:39)
[2025-01-17] MEDS: MOTRIN 400 MG PO ×3 (07:41→22:12)
[2025-01-17] MEDS: LUMINAL 32.4 MG PO ×3 (07:41→22:12)
[2025-01-17] MEDS: NEURONTIN 300 MG PO ×4 (07:41→22:12)
[2025-01-17] MEDS: PROTONIX 40 MG PO (07:41)
[2025-01-17] MEDS: MAGNESIUM OXIDE 500 MG PO ×2 (07:41→20:45)
--- NOTE | 2025-01-17 08:28 | W.PN.INTV ---
Today's Communication / Plan
Recommendations
Off Precedex drip since earlier this morning
Continue with phenobarbital
Thiamine
PPI
Psych consulted - recs appreciated
Continue duloxetine + gabapentin
ENT consulted � continue Unasyn, + Decadron. Recommend warm compresses and treat with ibuprofen TID
ABx per ID
Patient is stable for downgrade out of ICU to telemetry. No additional recommendations at this time. [employer] General Sales Manager/Pulmonary service will now sign off. Please reconsult if there are any additional questions/concerns, or if patient's respiratory
status deteriorates.
Assessment
-
Assessment: 49-year-old female with a past medical history of chronic alcoholism, history of peptic ulcer disease, asthma, anxiety and depression who presents for alcohol detox. She told triage in the ER that she has been drinking vodka
[id number] with the last drink earlier prior to arrival. Patient is originally from [facility] but was here in [place] for rehab and then stayed here to continue drinking. She came to the ER to seek detoxification from alcohol.
Patient was found to be anxious and tremulous in the ER. Initial vitals showed she was afebrile to 98.1 �F, pulse rate 138, respiratory rate 16, BP 148/108 and saturating 97% on room air. Initial labs showed Hb 16.5, platelet count 71, INR 1.17,
serum chloride level 90, glucose 131, T. bili 1.7, AST 430, ALT 178, hCG negative, marijuana was on her UDS and alcohol level initially 306. She initially was given Ativan in the ER and 1 L NS 0.9% and admitted to the IMU for further care. On
01/13, her agitation and alcohol withdrawal symptoms with confusion worsened despite multiple doses of Ativan. Patient then transferred to the ICU for further care, started on Precedex drip and Autom[employer] General Sales Manager services consulted for additional
management/recommendations.
Chronic conditions DIRECTOR LEARNING SERVICES: Chronic alcoholism, history of asthma, history of PUD, anxiety/depression
Impression:
#Acute alcoholic withdrawal with impending DT requiring Precedex drip --> now off precedex since this AM (01/17)
#Acute left parotid gland parotitis with reactive submandibular sialadenitis
#Leukopenia
#Chronic thrombocytopenia
#Hyponatremia
#Transaminitis with hyperbilirubinemia due to alcoholic liver injury � bilirubin now normal
#Alcoholic liver disease
#Gallbladder wall thickening with dilated CBD + pancreatic duct dilation
Plan:
- Patient is at high risk for alcohol withdrawal seizure given that she developed withdrawal symptoms with a presentation alcohol level of 306
- Patient had worsening alcohol withdrawal symptoms and was transferred to the ICU on 01/13/2025 and started on Precedex drip
- As of 01/17, she is now weaned completely off Precedex drip and is calm and following all commands
- Continue with thiamine + folic acid
- Continue with phenobarbital + MSAS with prn ativan --> on 01/14, we changed PO meds to IV given difficulty with her taking PO meds, per RN
- On 01/15, we raised phenobarbital dose to 65 mg IV TID from 32.5mg IV TID given her continued withdrawal symptoms and rising Precedex drip dose with continued WD symptoms
- Completed a few more doses of PO phenobarbital and then stop given that her acute phase of her alcohol withdrawal has now resolved
- Continue home med: Duloxetine (was DC'd by psychiatry but this was resumed on 01/16 as patient takes this at home and could there is risk in abruptly discontinuing this medication)
- Continue with gabapentin but hold for lethargy
- Psych consulted; would also would recommend pt speak with [facility] whom she did speak to today
- We started Seroquel 25mg BID on 01/15 but psych DC'd this
- Aspiration precautions
- Maintain SpO2 >90-94%
- prn nebulized bronchodilators - not currently bronchospastic
- Regarding her left-sided parotitis, continue ibuprofen 3 times daily
- prn opioids for severe breakthrough pain treatment
� ENT consulted --> likely developed left parotitis due to patient's chronic poor PO intake. Continue with Unasyn and systemic steroids resumed with Decadron
- Would wean steroids as per ENT
- ID consulted and started IV vanco on 01/16
- Defer ABx to ID
� No signs of salivary stone seen on imaging with CT neck
� Mumps serology with IgM + IgG is pending
- Apply warm compress
- Maintain MAP>65
- Replete electrolytes with K>4, Mg>2
- Maintain euglycemia with goal BG 140-180
- GI is following due to MRCP which showed dilated pancreatic duct with an occult lesion not ruled out
- Trend LFTs and T bili
- Eventual CT A/P with contrast - defer this to GI
- GI signed off on 01/14/2025
- Trend H/H and transfuse if needed to keep Hb>7g/dL; keep plt>20k, unless there is concern for bleeding then keep plt>50k
- PPI 40mg daily (home med)
- DVT ppx: LMWH (just need to monitor her platelet count)
Patient is stable for downgrade out of ICU to telemetry. No additional recommendations at this time. [employer] General Sales Manager/Pulmonary service will now sign off. Thank you for allowing us to be involved in the care of this patient. Please reconsult if there
are any additional questions/concerns, or if patient's respiratory status deteriorates.
Data:
Abdominal ultrasound 01/11/2025:
1. Increased echogenicity in the liver, compatible with underlying hepatocellular disease, which most commonly relates to fatty infiltration of the liver.
2. Gallbladder wall thickening may be on the basis of systemic congestion. Otherwise no sonographic evidence for cholelithiasis or acute cholecystitis.
3. Dilated common bile duct without compressing cause identified sonographically. Consider MRCP for further evaluation as clinically indicated.
CT Neck w/wo IV contrast 01/15/2025: Inflammatory fat stranding and mild edema in the left facial soft tissues most suspicious for left parotitis with some contiguous reactive left submandibular sialadenitis.
Total time spent today was 56 minutes for this encounter. Time includes reviewing laboratory test/imaging results, reviewing pertinent medical records, obtaining and reviewing medical history, performing an appropriate exam, ordering medications,
tests and procedures. Time also includes documentation of this encounter, coordinating patient care and communicating with other healthcare professionals. Total time does not include separately billed tests performed on this date of service.
Subjective Dataa
Subjective Data
Date of Service:
Date of Service: January 17, 2025
Chief Complaint: Autom[employer] General Sales Manager Follow Up
Subjective:
Patient seen and evaluated this morning. L-neck swelling improved. Still feels tight and tender on the left side, but she is now able to eat which she was not able to be yesterday. Has been off Precedex this morning and is not agitated.
Currently on room air saturating 97% with BP 126/78.
Review of Systems
General: Other (Negative unless mentioned above)
Objective Data
Data Reviewed
Vital Signs / I&O / Oxygen:
Vital Signs
Temp Pulse Resp BP Pulse Ox
98.0 F 115 13 117/80 95
01/17/25 08:00 01/17/25 07:00 01/17/25 07:00 01/17/25 07:00 01/17/25 04:00
Intake and Output
01/16/25 01/17/25 01/18/25
06:59 06:59 06:59
Intake Total 182.7 / 182.7 1849.1 / 1912.6 585.1 / 585.1
Output Total 1525 / 1525 700 / 700 100 / 100
Balance -1342.3 / -1342.3 1149.1 / 1212.6 485.1 / 485.1
SaO2 95
Nasal Cannula flow liters per 3
minute
Physical Exam
General: Respiratory Distress (negative), Pain (Left side of cheek/parotid gland region and upper neck), Chills (negative) and Sweats (negative)
HEENT: Normocephalic, Anicteric, Other (Tenderness to palpation of left parotid gland region with erythema and edema) and Other (No obvious rotting teeth seen or any ulceration seen inside of her mouth)
Cardiovascular: S1-S2 and Peripheral Edema (negative)
Respiratory: Clear, Wheeze (negative), Crackles (negative), Rhonchi (negative) and Non-Labored Respirations
GI: Soft, Non Distended, Non Tender and Normal Bowel Sounds
Neurology: Awake, Alert, Oriented and Tremors (negative)
Skin: Warm, Dry, Cyanosis (negative) and Rash (negative)
Labs/Micro/Reports
Lab Data
01/16/25 02:24
01/17/25 06:29
Microbiology
01/16/25 02:24 Blood/Venous Blood Culture - Preliminary
No Growth in 24 hours- Final report to follow
01/16/25 02:29 Blood/Venous Blood Culture - Preliminary
No Growth in 24 hours- Final report to follow
01/16/25 09:54 Nose Nasal Screen MRSA (PCR) - Final
Staph aureus MRSA
01/16/25 02:24 Nasal Swab Influenza Types A & B (TONIA) - Final
Negative for Influenza A & B, NAAT
Negative results must be combined with clinical observations
and patient history.
Nucleic Acid Amplification test (NAAT)performed on the
[employer] platform.
[2025-01-17] MEDS: FOLVITE 50.2 MG IV (08:37)
[2025-01-17] MEDS: THIAMINE INJECTION 255 MG IV ×3 (08:37→23:34)
--- NOTE | 2025-01-17 09:56 | PHA.VAN.FU ---
Vancomycin Assessment / Plan
- Assessment
Renal Function: Stable
WBC's are: WNL
In the past 24 hrs, patient has been: Afebrile
Concomitant Antimicrobials: unasyn
- Dosing Plan
Continue: vancomycin 1 g q12h
- Monitoring Plan
Peak Level: 01/17 @20:30
Trough Level: 01/18 @05:30
- Follow Up
Pharmacy will continue to follow.
Vancomycin Follow UP
- -
Patient Age: 49
Patient Sex: Female
Vancomycin Day #: 2
Indication: Eye Or Ent Infection
Requesting Provider: Dr. Dailey
Pertinent Antimicrobial Allergies:
no pertinent antibiotic allergies
Height / Weight:
Height 5 ft 5 in
Actual Weight 65.941 kg
- Vital Signs / Lab Results
Temp Pulse Resp BP Pulse Ox
98.0 F 85 11 89/60 96
01/17/25 08:00 01/17/25 09:30 01/17/25 09:30 01/17/25 09:30 01/17/25 09:47
Lab Results - Hematology
01/15/25 01/16/25
04:40 02:24
WBC 3.3 L 5.8
Lab Results - Chemistry
01/15/25 01/16/25 01/17/25
04:40 02:24 05:55
BUN 10 7 Cancelled
Creatinine 0.5 L 0.5 L Cancelled
Estimated Creat Clear 103 103 Cancelled
Albumin 3.9 4.6
01/17/25
06:29
BUN 8
Creatinine 0.5 L
Estimated Creat Clear 103
Albumin
01/16/25
02:24
Lactic Acid 0.9
Microbiology Results
01/16/25 02:24 Blood Culture - Preliminary
Blood/Venous No Growth in 24 hours- Final report to follow
01/16/25 02:29 Blood Culture - Preliminary
Blood/Venous No Growth in 24 hours- Final report to follow
01/16/25 09:54 Nasal Screen MRSA (PCR) - Final
Nose Staph aureus MRSA
01/16/25 02:24 Influenza Types A & B (TONIA) - Final
Nasal Swab Negative for Influenza A & B, NAAT
Negative results must be combined with clinical observations
and patient history.
Nucleic Acid Amplification test (NAAT)performed on the
[employer] platform.
--- NOTE | 2025-01-17 10:13 | PTCARENOTE ---
Complete assessment done and documented in pt's chart/worklist. Pt remains on low dose precedex. L cheek/neck sl swollen. Antibiotics and all ordered meds given. Pt oriented x3, but crying intermittently. MSAS presently=1. HR SR, Pt ate 25% of her
breakfast, and assisted to commode, urinating 100 ml carmella urine. Pt encouraged to stay OOB in chair, initially did not want to, but then did sit in bedside lounge chair with assistance. Call jean baptiste at pt's side.
--- NOTE | 2025-01-17 10:38 | PTCARENOTE ---
Precedex weaned to off now. Pt remains OOB in chair. MSAS=1.
--- NOTE | 2025-01-17 10:58 | W.PN.ID1 ---
Date of Service
Date of Service: January 17, 2025
Today's Communication
Continue Unasyn and Vancomycin
Assessment / Plan
# Acute left parotitis
# Fever due to above
# MRSA screen positive
- Continue Unasyn and Vancomycin d2
- Continue warm compress.
- follow temps.
# Alcohol abuse with withdrawal
# Conditions OVERNIGHT STOCKER:
Asthma
Peptic ulcer disease
Alcohol use disorder
Chronic pancreatitis
Chronic thrombocytopenia
Anxiety/depression
Chief Complaint
-: Other (Parotitis)
Subjective / Review of Systems
left face/neck pain slightly better
Vital Signs / Physical Exam
Vital Signs
Vital Signs
Temp Pulse Resp BP Pulse Ox
98.0 F 85 11 89/60 96
01/17/25 08:00 01/17/25 09:30 01/17/25 09:30 01/17/25 09:30 01/17/25 09:47
Physical Exam
Constitutional: Non-toxic
Head: Other (left parotid induration/warmth extend down to subclavian)
Cardiovascular: Regular Rate and S1/S2
Pulmonary: Clear
Gastrointestinal: Soft, Non Tender and Non Distended
Genito-Urinary: Negative CVA Tenderness
Extremities: Negative Edema
Neurological: AO x 3
Objective Data
Lab Data
Lab Results
01/16/25 02:24
01/17/25 06:29
PT 14.5 Sec (11.4-14.6) 01/12/25 04:37
INR 1.09 01/12/25 04:37
APTT 28.1 Sec (23.4-35.0) 01/11/25 05:26
Estimated Creat Clear 103 ml/min 01/17/25 06:29
Lactic Acid 0.9 mmol/L (0.7-2.0) 01/16/25 02:24
Total Bilirubin 0.9 mg/dl (0.2-1.3) 01/16/25 02:24
GGT 446 U/L (12-43) H 01/11/25 05:26
AST 55 U/L (14-36) H 01/16/25 02:24
ALT 76 U/L (0-35) H 01/16/25 02:24
Alkaline Phosphatase 124 U/L (38-126) 01/16/25 02:24
Most recent labs reviewed.
Micro Results:
01/16/25 02:24 Blood Culture - Preliminary
Blood/Venous No Growth in 24 hours- Final report to follow
01/16/25 02:29 Blood Culture - Preliminary
Blood/Venous No Growth in 24 hours- Final report to follow
01/16/25 09:54 Nasal Screen MRSA (PCR) - Final
Nose Staph aureus MRSA
01/16/25 02:24 Influenza Types A & B (TONIA) - Final
Nasal Swab Negative for Influenza A & B, NAAT
Negative results must be combined with clinical observations
and patient history.
Nucleic Acid Amplification test (NAAT)performed on the
[employer] platform.
01/15/[address]: Inflammatory fat stranding and mild edema in the left facial soft tissues most suspicious for left parotitis with some contiguous reactive left submandibular sialadenitis.
01/12/25 MRCP: Significantly limited examination secondary to incomplete sequences. Within these limitations, no clear evidence for choledocholithiasis. The main pancreatic duct is dilated. An occult lesion at the level of the head of the pancreas
cannot be excluded, but the patient does have chronic pancreatitis with multiple pancreatic calcifications noted on the previous CT, which likely correspond to the areas of irregular low signal intensity in the pancreatic parenchyma on this exam. A
follow-up ERCP or endoscopic ultrasound could be considered if clinically indicated.
01/11/25 ABD US: Increased echogenicity in the liver, compatible with underlying hepatocellular disease, which most commonly relates to fatty infiltration of the liver.
2. Gallbladder wall thickening may be on the basis of systemic congestion. Otherwise no sonographic evidence for cholelithiasis or acute cholecystitis.
3. Dilated common bile duct without compressing cause identified sonographically. Consider MRCP for further evaluation as clinically indicated.
--- NOTE | 2025-01-17 12:35 | CM ---
CM following re: discharge planning.
Reviewed pt's chart, mt with pt and with pt's permission spoke to pt's brother Alexander.
Pt presents sitting on the chair with depressed mood, sad affect, tearful and able to participate in the interview. .
Per pt's brother Alexander who lives in [facility], pt has been drinking a lot, lives alone, has 3 siblings and only him pt chose to communicate. Pt's brother asked to help the pt with placing to inpatient D&A rehab. Pt is aware of the communication with his
brother and she described him as 'my best friend', went to [facility] stated 'he will never give up on me'. Emotional support offered and provided.
Pt repprts she has 2 children and they staying in communication with their father. Pt's stated her ex- is supportive but because of her alcohol addiction it became too much for him. Pt reports she has been drinking heavily for many years, her
addiction destroyed her family. pt stated her drink of choice is vodka and she drinks almost a bottle of vodka daily. Pt reports she went to many inpatient D&A rehab and has difficulties to stay sober. Emotional support with reassurance offered and
provided. Pt went to tears many times during interview.
[facility] CRS following and CRS Allen will meet with the pt today.
Pt has no insurance. [facility] specialist following.
D/C plan: Inpatient residential D&A rehab when medically stable.
CM will follow to assist the pt with discharge to inpatient residential D&A rehab.
--- NOTE | 2025-01-17 12:43 | W.PN.UPDATE ---
Update Note
Progress Note Update
patient seen chart reviewed. spoke with nursing . ms martinez is much better. she carried on a very relevant conversation with me addressing her alcoholism, her depression, her current pain from parotitis. she says the pain is better though still not
insignificant but she is more optimistic about this resolving. she spoke of her depression which was palpable today. she was very tearful as she discussed life stressors and life issues. she is from [facility] and while she has a place here and
had a job it was a rather depressing. she hopes to move back to [facility] where she has family and supports but she has still nine months left on her lease. will increase cymbalta to 90 mg. agree with increase in gabapentin if we need it to avoid
restarting precedex nursing will give me a call if needed. consult [facility] to set up hopefully in patient rehab. patient has spent a lot of time in rehab but in my opinion it could really help her. psych will see her over weekend
[2025-01-17] MEDS: ATIVAN 1 MG PO (12:58)
[2025-01-17] MEDS: CALCIUM GLUCONATE 100 IV (13:04)
--- NOTE | 2025-01-17 15:45 | PTCARENOTE ---
Precedex remains off since this morning, pt may; go to tele room when available as per Dr Hartley. Pt cont's to tolerate OOB in chair, needs one person assistance when using commode.
[2025-01-17] MEDS: LOVENOX 40 MG SC (17:27)
--- NOTE | 2025-01-17 18:22 | PTCARENOTE ---
Pt being transferred now to tele room 429, report given to JAK Moy. All belongings packed and being brought pt via wheelchair.
[2025-01-18] MEDS: ATIVAN 1 MG PO (00:05)
[2025-01-18] MEDS: UNASYN IV ×4 (01:50→20:30)
[2025-01-18] MEDS: DECADRON 4 MG IV (01:51)
[2025-01-18] MEDS: DILAUDID 0.5 MG IV ×3 (01:59→20:42)
[2025-01-18 03:13] VITALS: BP 126/77
[2025-01-18] MEDS: ProAIR HFA INHALER 2 PUFF INH ×2 (06:25→20:58)
[2025-01-18 06:52] LABS: Hematocrit 30.7 % (37.0-47.0); Hemoglobin 11.1 g/dL (12.0-16.0); Mean Corp Hgb Conc. 36.2 g/dL (33.0-37.0); Mean Corpuscular Hgb 30.6 pg (27.0-31.0); Mean Corpuscular Volume 84.6 fL (81.0-99.0); Mean Platelet Volume 9.5 fL (7.4-10.4); Platelet Count 164 10^3/uL (130-400); Red Blood Cell Count 3.63 10^6/uL (4.20-5.40); Red Cell Dist. Width 13.5 % (11.5-14.5); White Blood Cell Count 7.3 10^3/uL (4.8-10.8)
[2025-01-18 06:56] LABS: Vancomycin Trough 6.3 ug/ml (5-20)
[2025-01-18 07:00] VITALS: BP 146/91
--- NOTE | 2025-01-18 07:07 | W.PN.HOSP.TC ---
Today's Communication/Plan
-
Continue IV antibiotics
Continue with hydration, warm compresses, patient should massage the gland herself and eat sour things
Prednisone Taper
Pain control
Continue to monitor on telemetry
Assessment / Plan
Assessment / Plan
Physical Exam
General: Not in acute distress
HEENT: Normocephalic, significant tenderness and swelling in left lower side of face
Cardiovascular: S1 and S2. Regular Rhythm.
Respiratory: Clear to Auscultation Bilaterally
GI: Soft, Non Distended, Non Tender and Normal Bowel Sounds
Neurology: AAOx3. Nonfocal/grossly intact
Psych: Very anxious and worried
Skin: Warm, Dry
Assessment/Plan
49yo F with PMHx of alcohol abuse, chronic pancreatitis, asthma, anxiety came with c/o generalized feeling unwell, nausea and vomiting since she was drinking daily for the past months and requesting detox. Managed for acohol withdrawal and also
found dilated CBD, however MRCP was inconclusive for definite reason given limitations.
#Acute left parotid gland parotitis with reactive submandibular sialadenitis (likely due to patient's chronic poor PO intake)
Still with significant pain and swelling in the left parotid area
Afebrile over night -- last fever was 01/16/25
Continue IV Unasyn & Vancomycin
Negative blood culture
+ MRSA screen
c/w pain control, Ibuprofen (6 more doses left)
Given patient's severe pain causing distress to the patient, added as needed Oxycodone in addition to breakthrough Dilaudid
IV Steroids have been stopped, spoke with ENT, started Prednisone Taper starting with 40 mg on 01/18/25, remaining Prednisone taper doses have been ordered
C/W hydration, warm compresses, patient should massage the gland herself and eat sour things
Appreciate ENT & ID help
No signs of salivary stone seen on imaging with CT neck
Follow-up Mumps serology with IgM + IgG
#History of Multiple Peptic/Gastric Ulcers, per patient
-Ibuprofen for a limited duration as above to help with pain and inflammation
-Monitor for any GI bleed/hematemesis/melena/hematochezia
# Hyponatremia
c/w Oral intake
# Hypokalemia, resolved
# hypomagnesemia
c/w oral Mg.
# Severe protein calorie malnutrition
f/w Nutrition
#Alcohol abuse with withdrawal with impending DT requiring Precedex drip --> now off Precedex since 01/17/25 morning
#Polysubstance abuse
Much less visual hallucinations. She is more alert, able to hold conversation. Upset and sad about her alcoholism, tearful.
c/w Thiamine, doses are ordered.
Folic acid
Phenobarb taper with overlap Gabapentin, can titrate up Gabapentin, previously weaned off Precedex
Stopped Seroquel while on on sedatives for now, eventual consideration to anti-depression treatment.
MSAS with Ativan
Utox: positive for barbiturates, BZD and marijuana
With worsening withdrawal and multiple Ativan doses on 01/13/25 - previously transferred to ICU for Precedex drip
Nonw on telemetry
#Leukopenia
#Chronic thrombocytopenia
#Transaminitis due to ETOH use
#Mild bilirubin elevation
#Fatty liver disease
#Alcoholic Liver Disease
#Dilated bile duct noted on US
She denies abdominal pain
MRCP neg for bladder pathology
No overt cholelithiasis or RUQ pain, Zosyn stopped
GI consult: repeat MRI abd with MRCP, can be done as OP
INR WNL
No RUQ pain
follow LFT
INR WNL
#Gallbladder wall thickening with dilated CBD + pancreatic duct dilation
#Chronic pancreatitis
lipase WNL
#Pancytopenia due to alcohol abuse
CBC is recovering. No bleeding.
#Hypokalemia
replete and follow electrolytes
DVT ppx SCDs 2/2 thrombocytopenia
Full code
Total time spent to see the patient, examine the patient, review data and lab results, discuss treatment plan with patient, staff around 52 minutes
Anticipated Discharge: > 48 hours
Subjective/Interval History
-
Date of Service: January 18, 2025
Patient was seen and examined. She reported continued intense pain on the left side of her face in the parotid area overnight.
Objective Data
-
Labs:
Laboratory Results
01/18/25
06:04
WBC 7.3
Hgb 11.1 L
Hct 30.7 L
Plt Count 164 D
Sodium Pending
Potassium Pending
Chloride Pending
Carbon Dioxide Pending
BUN Pending
Creatinine Pending
Glucose Pending
Calcium Pending
Total Bilirubin Pending
AST Pending
ALT Pending
Alkaline Phosphatase Pending
Vital Signs:
Vital Signs
Temp Pulse Resp BP Pulse Ox
98.5 F 110 15 126/77 100
01/18/25 03:13 01/18/25 06:25 01/18/25 06:25 01/18/25 03:13 01/18/25 06:25
I&O
01/17/25 01/18/25 01/19/25
06:59 06:59 06:59
Intake Total 1849.1 / 1912.6 1693.4 / 1693.4
Output Total 700 / 700 1400 / 1400
Balance 1149.1 / 1212.6 293.4 / 293.4
[2025-01-18 07:18] LABS: ALT (SGPT) 37 U/L (0-35); AST (SGOT) 22 U/L (14-36); Albumin 3.1 g/dl (3.5-5.0); Alkaline Phosphatase 102 U/L (38-126); Blood Urea Nitrogen 6 mg/dl (7-17); Calcium 8.4 mg/dl (8.4-10.2); Carbon Dioxide 21 mmol/L (22-30); Chloride 102 mmol/L (98-107); Estimated Creatinine Clearance 103 ml/min; Glucose 135 mg/dl (70-99); Magnesium 1.9 mg/dl (1.6-2.3); Phosphorus 3.2 mg/dl (2.5-4.5); Potassium 3.7 mmol/L (3.5-5.1); Sodium 134 mmol/L (135-145); Total Bilirubin 0.6 mg/dl (0.2-1.3); Total Protein 5.5 g/dl (6.3-8.2); eGFR > 60.00
[2025-01-18] MEDS: VANCOCIN 200 IV ×3 (07:47→21:50)
--- NOTE | 2025-01-18 09:10 | W.PN.ID1 ---
Date of Service
Date of Service: January 18, 2025
Today's Communication
Continue Vancomycin/Unasyn
Assessment / Plan
# Acute left parotitis
# Fever due to above, resolved
# MRSA screen positive
- Continue Unasyn and Vancomycin d3
- Continue warm compress.
- follow temps.
# Alcohol abuse with withdrawal
# Conditions [employer] DES[employer]:
Asthma
Peptic ulcer disease
Alcohol use disorder
Chronic pancreatitis
Chronic thrombocytopenia
Anxiety/depression
Chief Complaint
-: Other (Parotitis)
Subjective / Review of Systems
Had severe left face pain last night.
Vital Signs / Physical Exam
Vital Signs
Vital Signs
Temp Pulse Resp BP Pulse Ox
98.2 F 107 18 146/91 95
01/18/25 07:00 01/18/25 07:00 01/18/25 07:00 01/18/25 07:00 01/18/25 07:00
Physical Exam
Constitutional: Non-toxic
Head: Other (left parotid induration/warmth extend down to subclavian, erythema decreasing)
Cardiovascular: Regular Rate and S1/S2
Pulmonary: Clear
Gastrointestinal: Soft, Non Tender and Non Distended
Genito-Urinary: Negative CVA Tenderness
Extremities: Negative Edema
Neurological: AO x 3
Objective Data
Lab Data
Lab Results
01/18/25 06:04
01/18/25 06:04
PT 14.5 Sec (11.4-14.6) 01/12/25 04:37
INR 1.09 01/12/25 04:37
APTT 28.1 Sec (23.4-35.0) 01/11/25 05:26
Estimated Creat Clear 103 ml/min 01/18/25 06:04
Lactic Acid 0.9 mmol/L (0.7-2.0) 01/16/25 02:24
Total Bilirubin 0.6 mg/dl (0.2-1.3) 01/18/25 06:04
GGT 446 U/L (12-43) H 01/11/25 05:26
AST 22 U/L (14-36) 01/18/25 06:04
ALT 37 U/L (0-35) H 01/18/25 06:04
Alkaline Phosphatase 102 U/L (38-126) 01/18/25 06:04
Most recent labs reviewed.
Micro Results:
01/16/25 02:29 Blood Culture - Preliminary
Blood/Venous No Growth in 48 hours- Final report to follow
01/16/25 02:24 Blood Culture - Preliminary
Blood/Venous No Growth in 48 hours- Final report to follow
01/16/25 09:54 Nasal Screen MRSA (PCR) - Final
Nose Staph aureus MRSA
01/16/25 02:24 Influenza Types A & B ([facility]) - Final
Nasal Swab Negative for Influenza A & B, NAAT
Negative results must be combined with clinical observations
and patient history.
Nucleic Acid Amplification test (NAAT)performed on the
[employer] platform.
01/15/[address]: Inflammatory fat stranding and mild edema in the left facial soft tissues most suspicious for left parotitis with some contiguous reactive left submandibular sialadenitis.
01/12/25 MRCP: Significantly limited examination secondary to incomplete sequences. Within these limitations, no clear evidence for choledocholithiasis. The main pancreatic duct is dilated. An occult lesion at the level of the head of the pancreas
cannot be excluded, but the patient does have chronic pancreatitis with multiple pancreatic calcifications noted on the previous CT, which likely correspond to the areas of irregular low signal intensity in the pancreatic parenchyma on this exam. A
follow-up ERCP or endoscopic ultrasound could be considered if clinically indicated.
01/11/25 ABD US: Increased echogenicity in the liver, compatible with underlying hepatocellular disease, which most commonly relates to fatty infiltration of the liver.
2. Gallbladder wall thickening may be on the basis of systemic congestion. Otherwise no sonographic evidence for cholelithiasis or acute cholecystitis.
3. Dilated common bile duct without compressing cause identified sonographically. Consider MRCP for further evaluation as clinically indicated.
[2025-01-18] MEDS: PROTONIX 40 MG PO (09:28)
[2025-01-18] MEDS: CYMBALTA DELAYED RELEASE 90 MG PO (09:29)
[2025-01-18] MEDS: NEURONTIN 300 MG PO ×4 (09:32→21:49)
[2025-01-18] MEDS: MOTRIN 400 MG PO ×3 (09:32→21:49)
[2025-01-18] MEDS: FOLVITE 1 MG PO (09:33)
[2025-01-18] MEDS: MAGNESIUM OXIDE 500 MG PO ×2 (09:33→20:30)
[2025-01-18] MEDS: TYLENOL 650 MG PO ×3 (09:33→23:40)
[2025-01-18] MEDS: LUMINAL 32.4 MG PO ×2 (09:34→17:02)
[2025-01-18] MEDS: VITAMIN B1 100 MG PO (09:34)
--- NOTE | 2025-01-18 09:47 | PHA.VAN.FU ---
Vancomycin Assessment / Plan
- Assessment
Renal Function: Stable
WBC's are: Trending Up
In the past 24 hrs, patient has been: Afebrile
Concomitant Antimicrobials: Ampicillin-sulbactam
- Assessment - Therapeutic Drug Monitoring
Extrapolated Cmax (mcg/mL): 25.8
Peak level was drawn: Appropriately
Extrapolated Cmin (mcg/mL): 6.8
Trough Drawn: Appropriately
Levels were drawn: At steady state
Calculated AUC (mcg*h/mL): 345
Calculated ke: 0.122
Calculated half life (H): 5.7
Calculated Vd (L): 47.39
Calculated Vanc CL (ml/min): 96.38
- Dosing Plan
Adjust Regimen to: Vanc 1gm IV q8H
New Regimen Predicts: AUC (551), Peak (33.9), Trough (14.4)
- Monitoring Plan
No level(s) ordered at this time: Consider levels after 01/19 2200 dose.
- Follow Up
Pharmacy will continue to follow.
Vancomycin Follow UP
- -
Patient Age: 49
Patient Sex: Female
Vancomycin Day #: 3
Indication: Eye Or Ent Infection
Requesting Provider: Dr. Dailey
Pertinent Antimicrobial Allergies:
no pertinent antibiotic allergies
Height / Weight:
Height 5 ft 5 in
Actual Weight 65.941 kg
- Vital Signs / Lab Results
Temp Pulse Resp BP Pulse Ox
98.2 F 107 18 146/91 95
01/18/25 07:00 01/18/25 07:00 01/18/25 07:00 01/18/25 07:00 01/18/25 07:00
Lab Results - Hematology
01/16/25 01/18/25
02:24 06:04
WBC 5.8 7.3
Lab Results - Chemistry
0301/17/25 01/17/25
02:24 05:55 06:29
BUN 7 Cancelled 8
Creatinine 0.5 L Cancelled 0.5 L
Estimated Creat Clear 103 Cancelled 103
Albumin 4.6
01/18/25
06:04
BUN 6 L
Creatinine 0.4 L
Estimated Creat Clear 103
Albumin 3.1 L D
01/16/25
02:24
Lactic Acid 0.9
Microbiology Results
01/16/25 02:29 Blood Culture - Preliminary
Blood/Venous No Growth in 48 hours- Final report to follow
01/16/25 02:24 Blood Culture - Preliminary
Blood/Venous No Growth in 48 hours- Final report to follow
01/16/25 09:54 Nasal Screen MRSA (PCR) - Final
Nose Staph aureus MRSA
Therapeutic Drug Monitoring
Vancomycin Peak 21.0 ug/ml (18-26) 01/17/25 20:12
Vancomycin Trough 6.3 ug/ml (5-20) 01/18/25 06:04
[2025-01-18 11:00] VITALS: BP 130/84
--- NOTE | 2025-01-18 12:11 | W.PN.UPDATE ---
Update Note
Progress Note Update
Patient is pleasant and willing to talk.She recognizes she has an addiction and needs treatment and is willing to go into rehab. Depression is a very much prresent, she is crying intermittently, has sad mood and generally restricted affect. Denies
hopelessness or suicidal thoughts.
For now I would continue the Cymbalta 90 mg daily.
Going to inpatient rehab is strongly encouraged.
We discussed different strategies to maintain sobriety.
[2025-01-18] MEDS: ZOFRAN 4 MG IV (12:39)
[2025-01-18] MEDS: DELTASONE 40 MG PO (14:30)
[2025-01-18 15:00] VITALS: BP 125/79
[2025-01-18] MEDS: LOVENOX 40 MG SC (17:10)
[2025-01-18 20:11] VITALS: BP 131/89
[2025-01-18 23:49] VITALS: BP 121/85
[2025-01-19] MEDS: MELATONIN 5 MG PO (00:15)
[2025-01-19] MEDS: UNASYN IV ×4 (02:34→20:29)
[2025-01-19 03:32] VITALS: BP 136/84
[2025-01-19] MEDS: VANCOCIN 200 IV ×3 (05:20→21:27)
[2025-01-19 07:27] VITALS: BP 124/76
[2025-01-19 08:23] LABS: Hemoglobin 11.4 g/dL (12.0-16.0); Mean Corp Hgb Conc. 36.8 g/dL (33.0-37.0); Mean Corpuscular Hgb 31.1 pg (27.0-31.0); Mean Corpuscular Volume 84.5 fL (81.0-99.0); Platelet Count 257 10^3/uL (130-400); Red Blood Cell Count 3.67 10^6/uL (4.20-5.40); Red Cell Dist. Width 13.3 % (11.5-14.5); White Blood Cell Count 4.9 10^3/uL (4.8-10.8)
[2025-01-19] MEDS: TYLENOL 650 MG PO ×3 (08:53→23:25)
[2025-01-19] MEDS: DILAUDID 0.5 MG IV (08:53)
[2025-01-19 08:54] LABS: ALT (SGPT) 33 U/L (0-35); AST (SGOT) 22 U/L (14-36); Albumin 3.1 g/dl (3.5-5.0); Alkaline Phosphatase 93 U/L (38-126); Blood Urea Nitrogen 5 mg/dl (7-17); Calcium 8.6 mg/dl (8.4-10.2); Carbon Dioxide 28 mmol/L (22-30); Chloride 100 mmol/L (98-107); Estimated Creatinine Clearance 103 ml/min; Glucose 93 mg/dl (70-99); Magnesium 1.9 mg/dl (1.6-2.3); Potassium 3.6 mmol/L (3.5-5.1); Sodium 134 mmol/L (135-145); Total Bilirubin 0.4 mg/dl (0.2-1.3); Total Protein 5.5 g/dl (6.3-8.2); eGFR > 60.00
[2025-01-19] MEDS: PROTONIX 40 MG PO (08:54)
[2025-01-19] MEDS: FOLVITE 1 MG PO (08:54)
[2025-01-19] MEDS: VITAMIN B1 100 MG PO (08:54)
[2025-01-19] MEDS: MAGNESIUM OXIDE 500 MG PO ×2 (08:54→20:29)
[2025-01-19] MEDS: CYMBALTA DELAYED RELEASE 90 MG PO (08:54)
[2025-01-19] MEDS: MOTRIN 400 MG PO ×3 (08:54→21:27)
[2025-01-19] MEDS: NEURONTIN 300 MG PO ×4 (08:54→21:27)
[2025-01-19] MEDS: DELTASONE 35 MG PO (08:56)
[2025-01-19] MEDS: ProAIR HFA INHALER 2 PUFF INH ×2 (09:03→20:58)
--- NOTE | 2025-01-19 09:29 | PHA.VAN.FU ---
Vancomycin Assessment / Plan
- Assessment
Renal Function: Stable
WBC's are: Trending Down
In the past 24 hrs, patient has been: Afebrile
Concomitant Antimicrobials: Ampicillin-sulbactam
- Dosing Plan
Continue: Vanc 1gm IV Q8H
- Monitoring Plan
Level(s) appropriate: Recheck trough at minimum of weekly intervals, Repeat sooner for changes in renal function or clinical status
- Follow Up
Pharmacy will continue to follow.
Vancomycin Follow UP
- -
Patient Age: 49
Patient Sex: Female
Vancomycin Day #: 4
Indication: Eye Or Ent Infection
Requesting Provider: Dr. Dailey
Pertinent Antimicrobial Allergies:
no pertinent antibiotic allergies
Height / Weight:
Height 5 ft 5 in
Actual Weight 65.941 kg
- Vital Signs / Lab Results
Temp Pulse Resp BP Pulse Ox
98.2 F 95 17 124/76 96
01/19/25 07:27 01/19/25 09:07 01/19/25 09:07 01/19/25 07:27 01/19/25 09:07
Lab Results - Hematology
01/18/25 01/19/25
06:04 07:44
WBC 7.3 4.9
Lab Results - Chemistry
01/17/25 01/17/25 01/18/25
05:55 06:29 06:04
BUN Cancelled 8 6 L
Creatinine Cancelled 0.5 L 0.4 L
Estimated Creat Clear Cancelled 103 103
Albumin 3.1 L D
01/19/25
07:44
BUN 5 L
Creatinine 0.4 L
Estimated Creat Clear 103
Albumin 3.1 L
Microbiology Results
01/16/25 02:24 Blood Culture - Preliminary
Blood/Venous No Growth in 72 hours- Final report to follow
01/16/25 02:29 Blood Culture - Preliminary
Blood/Venous No Growth in 72 hours- Final report to follow
Therapeutic Drug Monitoring
Vancomycin Peak 21.0 ug/ml (18-26) 01/17/25 20:12
Vancomycin Trough 6.3 ug/ml (5-20) 01/18/25 06:04
--- NOTE | 2025-01-19 09:42 | W.PN.ID1 ---
Date of Service
Date of Service: January 19, 2025
Today's Communication
Continue current abx's for now.
Assessment / Plan
# Acute left parotitis - improving
# Fever due to above, resolved
# MRSA screen positive
- Continue Unasyn and Vancomycin d4
- On prednisone taper
- Continue warm compress.
# Alcohol abuse s/p withdrawal
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
Asthma
Peptic ulcer disease
Alcohol use disorder
Chronic pancreatitis
Chronic thrombocytopenia
Anxiety/depression
Chief Complaint
-: Other (Parotitis)
Subjective / Review of Systems
Feeling better.
Vital Signs / Physical Exam
Vital Signs
Vital Signs
Temp Pulse Resp BP Pulse Ox
98.2 F 95 17 124/76 96
01/19/25 07:27 01/19/25 09:07 01/19/25 09:07 01/19/25 07:27 01/19/25 09:07
Physical Exam
Constitutional: Non-toxic
Head: Other (left parotid induration/warmth extend down to subclavian, erythema resolving)
Cardiovascular: Regular Rate and S1/S2
Pulmonary: Clear
Gastrointestinal: Soft, Non Tender and Non Distended
Genito-Urinary: Negative CVA Tenderness
Extremities: Negative Edema
Neurological: AO x 3
Objective Data
Lab Data
Lab Results
01/19/25 07:44
01/19/25 07:44
PT 14.5 Sec (11.4-14.6) 01/12/25 04:37
INR 1.09 01/12/25 04:37
APTT 28.1 Sec (23.4-35.0) 01/11/25 05:26
Estimated Creat Clear 103 ml/min 01/19/25 07:44
Lactic Acid 0.9 mmol/L (0.7-2.0) 01/16/25 02:24
Total Bilirubin 0.4 mg/dl (0.2-1.3) 01/19/25 07:44
GGT 446 U/L (12-43) H 01/11/25 05:26
AST 22 U/L (14-36) 01/19/25 07:44
ALT 33 U/L (0-35) 01/19/25 07:44
Alkaline Phosphatase 93 U/L (38-126) 01/19/25 07:44
Most recent labs reviewed.
Micro Results:
01/16/25 02:24 Blood Culture - Preliminary
Blood/Venous No Growth in 72 hours- Final report to follow
01/16/25 02:29 Blood Culture - Preliminary
Blood/Venous No Growth in 72 hours- Final report to follow
01/16/25 09:54 Nasal Screen MRSA (PCR) - Final
Nose Staph aureus MRSA
01/16/25 02:24 Influenza Types A & B ([facility]) - Final
Nasal Swab Negative for Influenza A & B, NAAT
Negative results must be combined with clinical observations
and patient history.
Nucleic Acid Amplification test (NAAT)performed on the
[employer] platform.
01/15/[address]: Inflammatory fat stranding and mild edema in the left facial soft tissues most suspicious for left parotitis with some contiguous reactive left submandibular sialadenitis.
01/12/25 MRCP: Significantly limited examination secondary to incomplete sequences. Within these limitations, no clear evidence for choledocholithiasis. The main pancreatic duct is dilated. An occult lesion at the level of the head of the pancreas
cannot be excluded, but the patient does have chronic pancreatitis with multiple pancreatic calcifications noted on the previous CT, which likely correspond to the areas of irregular low signal intensity in the pancreatic parenchyma on this exam. A
follow-up ERCP or endoscopic ultrasound could be considered if clinically indicated.
01/11/25 ABD US: Increased echogenicity in the liver, compatible with underlying hepatocellular disease, which most commonly relates to fatty infiltration of the liver.
2. Gallbladder wall thickening may be on the basis of systemic congestion. Otherwise no sonographic evidence for cholelithiasis or acute cholecystitis.
3. Dilated common bile duct without compressing cause identified sonographically. Consider MRCP for further evaluation as clinically indicated.
--- NOTE | 2025-01-19 09:44 | W.PN.HOSP.TC ---
Today's Communication/Plan
-
c/w IV Abx
c/w pain control
Assessment / Plan
Assessment / Plan
Physical Exam
General: Not in acute distress
HEENT: Normocephalic, significant tenderness and swelling in left lower side of face
Cardiovascular: S1 and S2. Regular Rhythm.
Respiratory: Clear to Auscultation Bilaterally
GI: Soft, Non Distended, Non Tender and Normal Bowel Sounds
Neurology: AAOx3. Nonfocal/grossly intact
Psych: much less anxious
Skin: Warm, Dry
Assessment/Plan
49yo F with PMHx of alcohol abuse, chronic pancreatitis, asthma, anxiety came with c/o generalized feeling unwell, nausea and vomiting since she was drinking daily for the past months and requesting detox. Managed for acohol withdrawal and also
found dilated CBD, however MRCP was inconclusive for definite reason given limitations.
#Acute left parotid gland parotitis with reactive submandibular sialadenitis (likely due to patient's chronic poor PO intake)
Still with significant pain and swelling in the left parotid area
Afebrile over night -- last fever was 01/16/25
Continue IV Unasyn & Vancomycin
Negative blood culture
+ MRSA screen
c/w pain control, Ibuprofen (6 more doses left)
Given patient's severe pain causing distress to the patient, added as needed Oxycodone in addition to breakthrough Dilaudid
IV Steroids have been stopped, spoke with ENT, started Prednisone Taper starting with 40 mg on 01/18/25, remaining Prednisone taper doses have been ordered
C/W hydration, warm compresses, patient should massage the gland herself and eat sour things
Appreciate ENT & ID help
No signs of salivary stone seen on imaging with CT neck
Follow-up Mumps serology with IgM + IgG
#History of Multiple Peptic/Gastric Ulcers, per patient
-Ibuprofen for a limited duration as above to help with pain and inflammation
-Monitor for any GI bleed/hematemesis/melena/hematochezia
# Hyponatremia
c/w Oral intake
# Hypokalemia, resolved
# hypomagnesemia
c/w oral Mg.
# Severe protein calorie malnutrition
f/w Nutrition
#Alcohol abuse with withdrawal with impending DT requiring Precedex drip --> now off Precedex since 01/17/25 morning
#Polysubstance abuse
Much less visual hallucinations. She is more alert, able to hold conversation. Upset and sad about her alcoholism, tearful.
c/w Thiamine, doses are ordered.
Folic acid
Phenobarb taper with overlap Gabapentin, can titrate up Gabapentin, previously weaned off Precedex
Stopped Seroquel while on on sedatives for now, eventual consideration to anti-depression treatment.
MSAS with Ativan
Utox: positive for barbiturates, BZD and marijuana
With worsening withdrawal and multiple Ativan doses on 01/13/25 - previously transferred to ICU for Precedex drip
Nonw on telemetry
#Leukopenia
#Chronic thrombocytopenia
#Transaminitis due to ETOH use
#Mild bilirubin elevation
#Fatty liver disease
#Alcoholic Liver Disease
#Dilated bile duct noted on US
She denies abdominal pain
MRCP neg for bladder pathology
No overt cholelithiasis or RUQ pain, Zosyn stopped
GI consult: repeat MRI abd with MRCP, can be done as OP
INR WNL
No RUQ pain
follow LFT
INR WNL
# Mild acute blood loss anemia
No hypotension
#Gallbladder wall thickening with dilated CBD + pancreatic duct dilation
#Chronic pancreatitis
lipase WNL
#Pancytopenia due to alcohol abuse
CBC is recovering. No bleeding.
#Hypokalemia
replete and follow electrolytes
DVT ppx SCDs 2/2 thrombocytopenia
Full code
Total time spent to see the patient, examine the patient, review data and lab results, discuss treatment plan with patient, staff around 55 minutes
Anticipated Discharge: > 48 hours
Subjective/Interval History
-
Date of Service: January 19, 2025
She is feeling better, still pain in the left parotid area
Not dizzy
No chest pain, no abdominal pain
No fever
No hallucination or confusion
Objective Data
-
Labs:
Laboratory Results
01/19/25
07:44
WBC 4.9
Hgb 11.4 L
Hct 31.0 L
Plt Count 257 D
Sodium 134 L
Potassium 3.6
Chloride 100
Carbon Dioxide 28
BUN 5 L
Creatinine 0.4 L
Glucose 93
Calcium 8.6
Total Bilirubin 0.4
AST 22
ALT 33
Alkaline Phosphatase 93
Vital Signs:
Vital Signs
Temp Pulse Resp BP Pulse Ox
98.2 F 95 17 124/76 96
01/19/25 07:27 01/19/25 09:07 01/19/25 09:07 01/19/25 07:27 01/19/25 09:07
I&O
01/18/25 01/19/25 01/20/25
06:59 06:59 06:59
Intake Total 1693.4 / 1693.4 2519
Output Total 1400 / 1400
Balance 293.4 / 293.4 2519
--- NOTE | 2025-01-19 09:45 | W.PN.UPDATE ---
Update Note
Progress Note Update
Patient is doing reasonably well, no acute problems, toady beels bored and still dysphoric. She was called by the rehab facility informing her they have a bed available.
Discussed the importance of finding coping mechanisms to maintain sobriety as well as her plans for her future.
Would continue the Cymbalta 90 mg daily.
[2025-01-19 11:35] VITALS: BP 130/74
[2025-01-19 15:20] VITALS: BP 136/84
[2025-01-19] MEDS: LOVENOX 40 MG SC (16:10)
[2025-01-19 19:55] VITALS: BP 152/95
[2025-01-19] MEDS: MELATONIN PO (23:25)
[2025-01-19 23:40] VITALS: BP 148/91
[2025-01-20] MEDS: DILAUDID 0.5 MG IV ×3 (00:25→17:29)
[2025-01-20] MEDS: UNASYN IV ×4 (02:09→19:54)
[2025-01-20 03:35] VITALS: BP 120/73
[2025-01-20] MEDS: VANCOCIN 200 IV ×3 (05:23→22:02)
[2025-01-20 07:00] VITALS: BP 141/91
[2025-01-20 07:41] LABS: Hematocrit 36.4 % (37.0-47.0); Hemoglobin 12.8 g/dL (12.0-16.0); Mean Corp Hgb Conc. 35.2 g/dL (33.0-37.0); Mean Corpuscular Hgb 30.5 pg (27.0-31.0); Mean Corpuscular Volume 86.7 fL (81.0-99.0); Mean Platelet Volume 8.6 fL (7.4-10.4); Platelet Count 343 10^3/uL (130-400); Red Cell Dist. Width 13.5 % (11.5-14.5); White Blood Cell Count 5.7 10^3/uL (4.8-10.8)
[2025-01-20] MEDS: PROTONIX 40 MG PO (08:25)
[2025-01-20] MEDS: CYMBALTA DELAYED RELEASE 90 MG PO (08:25)
[2025-01-20] MEDS: NEURONTIN 300 MG PO ×4 (08:25→22:03)
[2025-01-20] MEDS: FOLVITE 1 MG PO (08:26)
[2025-01-20] MEDS: TYLENOL 650 MG PO ×2 (08:26→16:16)
[2025-01-20] MEDS: MOTRIN 400 MG PO (08:26)
[2025-01-20] MEDS: MAGNESIUM OXIDE 500 MG PO ×2 (08:26→19:54)
[2025-01-20] MEDS: VITAMIN B1 100 MG PO (08:27)
[2025-01-20] MEDS: DELTASONE 30 MG PO (08:28)
[2025-01-20] MEDS: ProAIR HFA INHALER 2 PUFF INH ×2 (08:58→23:25)
--- NOTE | 2025-01-20 09:23 | W.PN.HOSP.TC ---
Today's Communication/Plan
-
Does not want more blood work.
hope to change to oral antibiotics, plan to discharge this week
Will ask Psych to re-evaluate
Assessment / Plan
Assessment / Plan
Physical Exam
General: Not in acute distress
HEENT: Normocephalic, much less swelling, stretch box tender to touch, no redness.
Cardiovascular: S1 and S2. Regular Rhythm.
Respiratory: Clear to Auscultation Bilaterally
GI: Soft, Non Distended, Non Tender and Normal Bowel Sounds
Neurology: AAOx3. Nonfocal/grossly intact
Psych: less anxious, tearful at times
Skin: Warm, Dry
Assessment/Plan
49yo F with PMHx of alcohol abuse, chronic pancreatitis, asthma, anxiety came with c/o generalized feeling unwell, nausea and vomiting since she was drinking daily for the past months and requesting detox. Managed for acohol withdrawal and also
found dilated CBD, however MRCP was inconclusive for definite reason given limitations.
#Acute left parotid gland parotitis with reactive submandibular sialadenitis (likely due to patient's chronic poor PO intake)
less pain and swelling in the left parotid area
Afebrile
Continue IV Unasyn & Vancomycin
Negative blood culture
+ MRSA screen
c/w pain control, finished course of oral Ibuprofen.
IV Steroids have been stopped, spoke with ENT, started Prednisone Taper starting with 40 mg on 01/18/25, remaining Prednisone taper doses have been ordered
s/p hydration, warm compresses, patient should massage the gland herself and eat sour things
Appreciate ENT & ID help
No signs of salivary stone seen on imaging with CT neck
vaccinated in past for Mumps.
#History of Multiple Peptic/Gastric Ulcers, per patient
s/p Ibuprofen for a limited duration as above to help with pain and inflammation
-Monitor for any GI bleed/hematemesis/melena/hematochezia
# Hyponatremia
c/w Oral intake
# Hypokalemia, resolved
# hypomagnesemia
c/w oral Mg.
# Severe protein calorie malnutrition
f/w Nutrition
#Alcohol abuse with withdrawal with impending DT requiring Precedex drip --> now off Precedex since 01/17/25 morning
#Polysubstance abuse
Much less visual hallucinations. She is more alert, able to hold conversation. Upset and sad about her alcoholism, tearful.
c/w Thiamine, doses are ordered.
Folic acid
Phenobarb taper with overlap Gabapentin, can titrate up Gabapentin, previously weaned off Precedex
Stopped Seroquel while on on sedatives for now, eventual consideration to anti-depression treatment.
MSAS with Ativan
Utox: positive for barbiturates, BZD and marijuana
With worsening withdrawal and multiple Ativan doses on 01/13/25 - previously transferred to ICU for Precedex drip
Nonw on telemetry
#Leukopenia
#Chronic thrombocytopenia
#Transaminitis due to ETOH use
#Mild bilirubin elevation
#Fatty liver disease
#Alcoholic Liver Disease
#Dilated bile duct noted on US
She denies abdominal pain
MRCP neg for bladder pathology
No overt cholelithiasis or RUQ pain, Zosyn stopped
GI consult: repeat MRI abd with MRCP, can be done as OP
INR WNL
No RUQ pain
follow LFT
INR WNL
# Mild acute blood loss anemia
No hypotension
#Gallbladder wall thickening with dilated CBD + pancreatic duct dilation
#Chronic pancreatitis
lipase WNL
#Pancytopenia due to alcohol abuse
CBC is recovering. No bleeding.
#Hypokalemia
replete and follow electrolytes
DVT ppx SCDs 2/2 thrombocytopenia
Full code
Total time spent to see the patient, examine the patient, review data and lab results, discuss treatment plan with patient, staff around 55 minutes
Anticipated Discharge: > 48 hours
Subjective/Interval History
-
Date of Service: January 20, 2025
No chest pain
No sob
tearful at times with her thoughts
less pain in left parotid
Objective Data
-
Labs:
Laboratory Results
01/20/25
07:08
WBC 5.7
Hgb 12.8
Hct 36.4 L
Plt Count 343 D
Vital Signs:
Vital Signs
Temp Pulse Resp BP Pulse Ox
98.0 F 73 18 120/73 98
01/20/25 03:35 01/20/25 03:35 01/20/25 03:35 01/20/25 03:35 01/20/25 03:35
I&O
01/19/25 01/20/25 01/21/25
06:59 06:59 06:59
Intake Total 0 / 2520 1829
Balance 2520 / 2520 1829
--- NOTE | 2025-01-20 10:03 | PHA.VAN.FU ---
Vancomycin Assessment / Plan
- Assessment
Renal Function: Stable
WBC's are: WNL
In the past 24 hrs, patient has been: Afebrile
Concomitant Antimicrobials: unasyn
- Dosing Plan
Continue: vancomycin 1000 mg Q8H
- Monitoring Plan
Peak Level: 01/21 @0030
Trough Level: 01/21 0530
- Follow Up
Pharmacy will continue to follow.
Vancomycin Follow UP
- -
Patient Age: 49
Patient Sex: Female
Vancomycin Day #: 5
Indication: Eye Or Ent Infection
Requesting Provider: Dr. Dailey
Pertinent Antimicrobial Allergies:
no pertinent antibiotic allergies
Height / Weight:
Height 5 ft 5 in
Actual Weight 65.941 kg
- Vital Signs / Lab Results
Temp Pulse Resp BP Pulse Ox
98.3 F 90 18 141/91 98
01/20/25 07:00 01/20/25 07:00 01/20/25 07:00 01/20/25 07:00 01/20/25 07:00
Lab Results - Hematology
01/18/25 01/19/25 01/20/25
06:04 07:44 07:08
WBC 7.3 4.9 5.7
Lab Results - Chemistry
01/18/25 01/19/25
06:04 07:44
BUN 6 L 5 L
Creatinine 0.4 L 0.4 L
Estimated Creat Clear 103 103
Albumin 3.1 L D 3.1 L
Microbiology Results
01/16/25 02:24 Blood Culture - Preliminary
Blood/Venous No Growth in 4 days- Final report to follow
01/16/25 02:29 Blood Culture - Preliminary
Blood/Venous No Growth in 4 days- Final report to follow
Therapeutic Drug Monitoring
Vancomycin Peak 21.0 ug/ml (18-) 01/17/25 20:12
Vancomycin Trough 6.3 ug/ml (5-20) 01/18/25 06:04
[2025-01-20 11:00] VITALS: BP 127/73
--- NOTE | 2025-01-20 12:42 | CM ---
software qa manager reviewed patient's chart and met with patient and patient states she is planning to got to [facility], when stable. This is a Drug and Alcohol treatment center, and they will provided
transport for patient.
Plan; Patient to transfer to [facility] when stable.
--- NOTE | 2025-01-20 13:44 | W.PN.ID1 ---
Date of Service
Date of Service: January 20, 2025
Today's Communication
Anticipate dc to rehab 4/2 on Augmentin 875mg po bid and doxycycline 100mg po bid through 01/29
Assessment / Plan
# Acute left parotitis - improving
# Fever due to above, resolved
# MRSA screen positive
- On prednisone taper
- Continue Unasyn and Vancomycin (d5)
- Anticipate dc to rehab 4/2 on Augmentin 875mg po bid and doxycycline 100mg po bid through 01/29
- Continue warm compress.
# Alcohol abuse s/p withdrawal
# Conditions CLINICAL EVALUATOR:
Asthma
Peptic ulcer disease
Alcohol use disorder
Chronic pancreatitis
Chronic thrombocytopenia
Anxiety/depression
Chief Complaint
-: Other (Parotitis)
Subjective / Review of Systems
c/o more pain lower parotid
Vital Signs / Physical Exam
Vital Signs
Vital Signs
Temp Pulse Resp BP Pulse Ox
98.3 F 77 18 127/73 98
01/20/25 11:00 01/20/25 11:00 01/20/25 11:00 01/20/25 11:00 01/20/25 11:00
Physical Exam
Constitutional: Non-toxic
Head: Other (left parotid induration continues to improve/smaller; erythema resolved.)
Cardiovascular: Regular Rate and S1/S2
Pulmonary: Clear
Gastrointestinal: Soft, Non Tender and Non Distended
Genito-Urinary: Negative CVA Tenderness
Extremities: Negative Edema
Neurological: AO x 3
Objective Data
Lab Data
Lab Results
01/20/25 07:08
01/19/25 07:44
PT 14.5 Sec (11.4-14.6) 01/12/25 04:37
INR 1.09 01/12/25 04:37
APTT 28.1 Sec (23.4-35.0) 01/11/25 05:26
Estimated Creat Clear 103 ml/min 01/19/25 07:44
Lactic Acid 0.9 mmol/L (0.7-2.0) 01/16/25 02:24
Total Bilirubin 0.4 mg/dl (0.2-1.3) 01/19/25 07:44
GGT 446 U/L (12-43) H 01/11/25 05:26
AST 22 U/L (14-36) 01/19/25 07:44
ALT 33 U/L (0-35) 01/19/25 07:44
Alkaline Phosphatase 93 U/L (38-126) 01/19/25 07:44
Most recent labs reviewed.
Micro Results:
01/16/25 02:24 Blood Culture - Preliminary
Blood/Venous No Growth in 4 days- Final report to follow
01/16/25 02:29 Blood Culture - Preliminary
Blood/Venous No Growth in 4 days- Final report to follow
01/16/25 09:54 Nasal Screen MRSA (PCR) - Final
Nose Staph aureus MRSA
01/16/25 02:24 Influenza Types A & B (TONIA) - Final
Nasal Swab Negative for Influenza A & B, NAAT
Negative results must be combined with clinical observations
and patient history.
Nucleic Acid Amplification test (NAAT)performed on the
[employer] platform.
01/15/[address]: Inflammatory fat stranding and mild edema in the left facial soft tissues most suspicious for left parotitis with some contiguous reactive left submandibular sialadenitis.
01/12/25 MRCP: Significantly limited examination secondary to incomplete sequences. Within these limitations, no clear evidence for choledocholithiasis. The main pancreatic duct is dilated. An occult lesion at the level of the head of the pancreas
cannot be excluded, but the patient does have chronic pancreatitis with multiple pancreatic calcifications noted on the previous CT, which likely correspond to the areas of irregular low signal intensity in the pancreatic parenchyma on this exam. A
follow-up ERCP or endoscopic ultrasound could be considered if clinically indicated.
01/11/25 ABD US: Increased echogenicity in the liver, compatible with underlying hepatocellular disease, which most commonly relates to fatty infiltration of the liver.
2. Gallbladder wall thickening may be on the basis of systemic congestion. Otherwise no sonographic evidence for cholelithiasis or acute cholecystitis.
3. Dilated common bile duct without compressing cause identified sonographically. Consider MRCP for further evaluation as clinically indicated.
[2025-01-20 15:00] VITALS: BP 137/87
[2025-01-20] MEDS: LOVENOX SC ×2 (17:24→17:27)
[2025-01-20 23:35] VITALS: BP 129/60
[2025-01-21] MEDS: TYLENOL 650 MG PO ×2 (00:25→08:50)
[2025-01-21] MEDS: DILAUDID 0.5 MG IV ×3 (00:43→20:08)
[2025-01-21 01:14] LABS: Vancomycin Peak 27.1 ug/ml (18-26)
--- NOTE | 2025-01-21 01:23 | PTCARENOTE ---
pt very emotional and tearful. stating she is just going to go home and get her life together instead of going to rehab. she will go to meetings. states she has too much to take care of at home and is tired of everyone in her life telling her what
to do. Emotional support provided. was given prn Dilaudid for jaw/neck pain. call jean baptiste in [facility].
[2025-01-21] MEDS: UNASYN IV ×2 (02:18→09:08)
[2025-01-21] MEDS: MELATONIN 5 MG PO ×2 (02:24→23:26)
--- NOTE | 2025-01-21 06:07 | PTCARENOTE ---
pt refused to let RN draw morning vanco trough. She states Dr Vincent told her there would be no more blood draws. RN did explain last evening when drawing peak that a trough was to be drawn in the morning. Pharmacy was called and made aware and
stated it is ok to give the morning dose of vanco without the trough.
[2025-01-21] MEDS: VANCOCIN 200 IV (06:09)
[2025-01-21 07:04] VITALS: BP 141/86
[2025-01-21] MEDS: ProAIR HFA INHALER 2 PUFF INH ×2 (08:41→22:55)
[2025-01-21] MEDS: PROTONIX 40 MG PO (08:50)
[2025-01-21] MEDS: NEURONTIN 300 MG PO ×4 (08:50→23:26)
[2025-01-21] MEDS: VITAMIN B1 100 MG PO (08:50)
[2025-01-21] MEDS: MAGNESIUM OXIDE 500 MG PO ×2 (08:50→19:43)
[2025-01-21] MEDS: FOLVITE 1 MG PO (08:50)
[2025-01-21] MEDS: CYMBALTA DELAYED RELEASE 90 MG PO (08:52)
[2025-01-21] MEDS: DELTASONE 25 MG PO (08:54)
[2025-01-21] MEDS: AUGMENTIN 875 MG/125 MG 1 TABLET PO ×2 (09:08→19:43)
[2025-01-21] MEDS: VIBRAMYCIN 100 MG PO ×2 (09:08→19:43)
--- NOTE | 2025-01-21 09:15 | W.PN.ID1 ---
Date of Service
Date of Service: January 21, 2025
Today's Communication
Can transition to Augmentin 875mg po bid and doxycycline
Assessment / Plan
# Acute left parotitis - improving
# Fever due to above, resolved
# MRSA screen positive
- On prednisone taper
- Can transition Unasyn and Vancomycin (d6)to Augmentin 875mg po bid and doxycycline 100mg po bid through 01/29
- Continue warm compress.
# Alcohol abuse s/p withdrawal
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
Asthma
Peptic ulcer disease
Alcohol use disorder
Chronic pancreatitis
Chronic thrombocytopenia
Anxiety/depression
Chief Complaint
-: Other (Parotitis)
Subjective / Review of Systems
Parotid discomfort stable.
Vital Signs / Physical Exam
Vital Signs
Vital Signs
Temp Pulse Resp BP Pulse Ox
98.2 F 80 18 141/86 99
01/21/25 07:04 01/21/25 07:04 01/21/25 07:04 01/21/25 07:04 01/21/25 07:04
Physical Exam
Constitutional: Non-toxic
Head: Other (left parotid induration continues to improve/smaller; erythema resolved.)
Cardiovascular: Regular Rate and S1/S2
Pulmonary: Clear
Gastrointestinal: Soft, Non Tender and Non Distended
Genito-Urinary: Negative CVA Tenderness
Extremities: Negative Edema
Neurological: AO x 3
Objective Data
Lab Data
Lab Results
01/21/25 06:00
01/19/25 07:44
PT 14.5 Sec (11.4-14.6) 01/12/25 04:37
INR 1.09 01/12/25 04:37
APTT 28.1 Sec (23.4-35.0) 01/11/25 05:26
Estimated Creat Clear 103 ml/min 01/19/25 07:44
Lactic Acid 0.9 mmol/L (0.7-2.0) 01/16/25 02:24
Total Bilirubin 0.4 mg/dl (0.2-1.3) 01/19/25 07:44
GGT 446 U/L (12-43) H 01/11/25 05:26
AST 22 U/L (14-36) 01/19/25 07:44
ALT 33 U/L (0-35) 01/19/25 07:44
Alkaline Phosphatase 93 U/L (38-126) 01/19/25 07:44
Most recent labs reviewed.
Micro Results:
01/16/25 02:24 Blood Culture - Final
Blood/Venous No Growth - Final Report
01/16/25 02:29 Blood Culture - Final
Blood/Venous No Growth - Final Report
01/16/25 09:54 Nasal Screen MRSA (PCR) - Final
Nose Staph aureus MRSA
01/16/25 02:24 Influenza Types A & B (TONIA) - Final
Nasal Swab Negative for Influenza A & B, NAAT
Negative results must be combined with clinical observations
and patient history.
Nucleic Acid Amplification test (NAAT)performed on the
[employer] platform.
01/15/[address]: Inflammatory fat stranding and mild edema in the left facial soft tissues most suspicious for left parotitis with some contiguous reactive left submandibular sialadenitis.
01/12/25 MRCP: Significantly limited examination secondary to incomplete sequences. Within these limitations, no clear evidence for choledocholithiasis. The main pancreatic duct is dilated. An occult lesion at the level of the head of the pancreas
cannot be excluded, but the patient does have chronic pancreatitis with multiple pancreatic calcifications noted on the previous CT, which likely correspond to the areas of irregular low signal intensity in the pancreatic parenchyma on this exam. A
follow-up ERCP or endoscopic ultrasound could be considered if clinically indicated.
01/11/25 ABD US: Increased echogenicity in the liver, compatible with underlying hepatocellular disease, which most commonly relates to fatty infiltration of the liver.
2. Gallbladder wall thickening may be on the basis of systemic congestion. Otherwise no sonographic evidence for cholelithiasis or acute cholecystitis.
3. Dilated common bile duct without compressing cause identified sonographically. Consider MRCP for further evaluation as clinically indicated.
Care Review
Plan reviewed with: Physician (Dr. Vincent)
--- NOTE | 2025-01-21 11:32 | W.PN.HOSP.TC ---
Today's Communication/Plan
-
discharge in AM
patient wants to go home now
Assessment / Plan
Assessment / Plan
Physical Exam
General: Not in acute distress
HEENT: Normocephalic, much less swelling, much less tender to touch, no redness.
Cardiovascular: S1 and S2. Regular Rhythm.
Respiratory: Clear to Auscultation Bilaterally
GI: Soft, Non Distended, Non Tender and Normal Bowel Sounds
Neurology: AAOx3. Nonfocal/grossly intact
Psych: less anxious, tearful at times
Skin: Warm, Dry
Assessment/Plan
49yo F with PMHx of alcohol abuse, chronic pancreatitis, asthma, anxiety came with c/o generalized feeling unwell, nausea and vomiting since she was drinking daily for the past months and requesting detox. Managed for acohol withdrawal and also
found dilated CBD, however MRCP was inconclusive for definite reason given limitations.
#Acute left parotid gland parotitis with reactive submandibular sialadenitis (likely due to patient's chronic poor PO intake)
less pain and swelling in the left parotid area
Afebrile
S/P IV Unasyn & Vancomycin. Pt feels her hands are bruised, does not want more blood work, will change to oral antibiotics. Vancomycin trough is high today.
Negative blood culture
+ MRSA screen
c/w pain control, finished course of oral Ibuprofen. c/w oral Tylenol as needed.
IV Steroids have been stopped, spoke with ENT, started Prednisone Taper starting with 40 mg on 01/18/25, remaining Prednisone taper doses have been ordered
s/p hydration, warm compresses, patient should massage the gland herself and eat sour things
Appreciate ENT & ID help
No signs of salivary stone seen on imaging with CT neck
vaccinated in past for Mumps.
#History of Multiple Peptic/Gastric Ulcers, per patient
s/p Ibuprofen for a limited duration as above to help with pain and inflammation
# Hyponatremia
c/w Oral intake
# Hypokalemia, resolved
# hypomagnesemia
c/w oral Mg.
# Severe protein calorie malnutrition
Improved, reports good appetite now.
#Alcohol abuse with withdrawal with impending DT requiring Precedex drip --> now off Precedex since 01/17/25 morning
#Polysubstance abuse
Much less visual hallucinations. She is more alert, able to hold conversation. Upset and sad about her alcoholism, tearful.
c/w Thiamine, doses are ordered.
Folic acid
Finished Phenobarb taper with overlap Gabapentin. S/P IV Precedex
Stopped Seroquel while on on sedatives for now, eventual consideration to anti-depression treatment.
MSAS with Ativan
Utox: positive for barbiturates, BZD and marijuana
#Leukopenia
#Chronic thrombocytopenia
#Transaminitis due to ETOH use
#Mild bilirubin elevation
#Fatty liver disease
#Alcoholic Liver Disease
#Dilated bile duct noted on US
She denies abdominal pain
MRCP neg for bladder pathology
No overt cholelithiasis or RUQ pain, Zosyn stopped
GI consult: repeat MRI abd with MRCP, can be done as OP
INR WNL
No RUQ pain
follow LFT
INR WNL
# Mild acute blood loss anemia
No hypotension
#Gallbladder wall thickening with dilated CBD + pancreatic duct dilation
#Chronic pancreatitis
lipase WNL
#Pancytopenia due to alcohol abuse
CBC is recovering. No bleeding.
#Hypokalemia
replete and follow electrolytes
DVT ppx SCDs 2/2 thrombocytopenia
Full code
Total time spent to see the patient, examine the patient, review data and lab results, discuss treatment plan with patient, staff around 55 minutes
Anticipated Discharge: Within 24 hours
Subjective/Interval History
-
Date of Service: January 21, 2025
Upset about hand bruising, blood work
No pain issues
Feels clear head now and wants to go home
Objective Data
-
Labs:
Laboratory Results
01/21/25
06:00
WBC Cancelled
Hgb Cancelled
Hct Cancelled
Plt Count Cancelled
Vital Signs:
Vital Signs
Temp Pulse Resp BP Pulse Ox
98.2 F 80 18 141/86 99
01/21/25 07:04 01/21/25 07:04 01/21/25 07:04 01/21/25 07:04 01/21/25 07:04
I&O
01/20/25 01/21/25 01/22/25
06:59 06:59 06:59
Intake Total 1829 / 0 3420 / 3420
Balance 1829 / 1829 3420 / 3420
[2025-01-21 12:13] LABS: Mumps Virus IgG Positive
--- NOTE | 2025-01-21 14:51 | W.PN.UPDATE ---
Update Note
Progress Note Update
Pt seen, resting in bed in no distress. Pt states she had a 'meltdown' yesterday, was able talk with her brother and cry about her issues. Pt states she and brother are close, he is very supportive. Pt reports she also has a supportive close
friend who is in recovery. Pt also was able to sleep last night with melatonin, after not sleeping much for a few nights. Pt states she feels much better today. She plans to return home, has financial matters to attend to; plans to utilize AA
meetings. Pt has contact at [facility] (rehab program) for treatment resources. Mood is stable, affect appropriate. Pt denies side effects thus far on increased Cymbalta 90 mg daily.
Imp: Alcohol Use d/o. Pt declines residential rehab, states plan to seek outpatient resources, AA meetings
Unspecified depression, stable for discharge when medically cleared
Rec: would continue trial of Cymbalta increased to 90 mg daily. Outpatient med mgt with PCP or psychiatry
will follow
[2025-01-21 15:42] VITALS: BP 146/81
[2025-01-21] MEDS: LOVENOX SC ×2 (17:21→17:27)
[2025-01-21 23:55] VITALS: BP 123/91
[2025-01-22] MEDS: DILAUDID 0.5 MG IV (04:40)
[2025-01-22] MEDS: NEURONTIN 300 MG PO (07:16)
[2025-01-22] MEDS: VITAMIN B1 100 MG PO (07:16)
[2025-01-22] MEDS: PROTONIX 40 MG PO (07:16)
[2025-01-22] MEDS: AUGMENTIN 875 MG/125 MG 1 TABLET PO (07:16)
[2025-01-22] MEDS: MAGNESIUM OXIDE 500 MG PO (07:16)
[2025-01-22] MEDS: VIBRAMYCIN 100 MG PO (07:16)
[2025-01-22] MEDS: CYMBALTA DELAYED RELEASE 90 MG PO (07:16)
[2025-01-22] MEDS: FOLVITE 1 MG PO (07:16)
[2025-01-22] MEDS: DELTASONE 20 MG PO (07:17)
[2025-01-22 07:30] VITALS: BP 135/84
--- NOTE | 2025-01-22 08:05 | W.PN.HOSP.TC ---
Today's Communication/Plan
-
Discharge
Assessment / Plan
Assessment / Plan
Physical Exam
General: Not in acute distress
HEENT: Normocephalic, very small around 1 cm palpable swelling slightly tender left parotid
Cardiovascular: S1 and S2. Regular Rhythm.
Respiratory: Clear to Auscultation Bilaterally
GI: Soft, Non Distended, Non Tender and Normal Bowel Sounds
Neurology: AAOx3. Nonfocal/grossly intact, normal gait. No tremor
Skin: Warm, Dry
psych, pleasant mood and cooperative, denies depression
Assessment/Plan
49yo F with PMHx of alcohol abuse, chronic pancreatitis, asthma, anxiety came with c/o generalized feeling unwell, nausea and vomiting since she was drinking daily for the past months and requesting detox. Managed for acohol withdrawal and also
found dilated CBD, however MRCP was inconclusive for definite reason given limitations.
#Acute left parotid gland parotitis with reactive submandibular sialadenitis (likely due to patient's chronic poor PO intake)
Improved significantly with decreasing in the swelling and tenderness.
Status post IV antibiotic with good response. Status post tapering prednisone and ibuprofen. She was seen by ENT. Appreciate ID input. Tolerating oral antibiotic without side effects. Patient requested pain medicine to go home with in addition
to Tylenol, will give prescription of tramadol.
#History of Multiple Peptic/Gastric Ulcers, per patient
Tolerating diet. No abdominal pain or nausea
# Hyponatremia
No confusion
# Hypokalemia, resolved
# hypomagnesemia
c/w oral Mg.
# Severe protein calorie malnutrition
Much improved, tolerating diet well
#Alcohol abuse with withdrawal with impending DT requiring Precedex drip --> now off Precedex since 01/17/25 morning
#Polysubstance abuse
No more hallucination. Doing much better. Lucid and oriented x 3. No tremor. Mood is cooperative and pleasant.
Status post high-dose thiamine and folic acid.
Finished Phenobarb taper with overlap Gabapentin. S/P IV Precedex. Patient takes Neurontin at home.
Followed by psychiatry, okay to discharge on Cymbalta 90
Utox: positive for barbiturates, BZD and marijuana
#Leukopenia, resolved
# History of chronic thrombocytopenia, platelet normalized
#Transaminitis due to ETOH use
#Mild bilirubin elevation
#Fatty liver disease
#Alcoholic Liver Disease
#Dilated bile duct noted on US
No abdominal pain. Liver function test normalized. Normal bilirubin.
# Mild acute blood loss anemia
No hypotension
#Gallbladder wall thickening with dilated CBD + pancreatic duct dilation
#Chronic pancreatitis
lipase WNL
#Pancytopenia due to alcohol abuse
CBC is recovering. No bleeding.
#Hypokalemia
Resolved
DVT ppx SCDs 2/2 thrombocytopenia
Full code
Total discharge time spent to see the patient, examine the patient, review data and lab results, discuss discharge plan with patient, design center consultant, nursing staff around 67 minutes
Anticipated Discharge: Today
Subjective/Interval History
-
Date of Service: January 22, 2025
Doing well, happy to go home. No confusion. No tremor. No anxiety
Objective Data
-
Vital Signs:
Vital Signs
Temp Pulse Resp BP Pulse Ox
98.4 F 89 18 123/91 97
01/21/25 23:55 01/21/25 23:55 01/21/25 23:55 01/21/25 23:55 01/21/25 23:55
I&O
01/21/25 01/22/25 01/23/25
06:59 06:59 06:59
Intake Total 3420 / 3420 960 / 960
Balance 3420 / 3420 960 / 960
[2025-01-22] MEDS: ProAIR HFA INHALER 2 PUFF INH (08:30)
--- NOTE | 2025-01-22 10:40 | CM ---
Chart reviewed and patient has been cleared for discharge today, patient plans on returning directly to home. Patient will contact er for transportation to home.
Plan; Home today, no needs.
[2025-01-22 11:10] VITALS: BP 131/80
--- NOTE | 2025-01-22 12:15 | W.DCSUMMARY ---
Discharge Summary
Discharge Data
Date of Admission: 01/10/25
Date of Discharge: 01/22/25
-
Pending Results: No
Hospital Course
49 years old female with history of alcohol use disorder presented to the emergency room complaining of alcohol withdrawal symptoms. Patient reported that she was drinking alcohol [id number] and started to feel anxious and tremulous. Urine
drug screen was positive for marijuana. Patient had elevated liver enzymes. She was admitted to the intensive care unit to treat her agitation and alcohol withdrawal symptoms. Patient was evaluated by save all operator. She was started on intravenous
for the sepsis drips and phenobarbital regimen. Psychiatrist was consulted. She was given high doses of thiamine and folic acid. Patient started to show improvement with weaning off of the Precedex drip. She was started on phenobarbital tapering
protocol. Her mentation started to improve and she started to tolerate diet. Patient was moved out to the ICU. She was followed by psychiatrist and medication dose of Cymbalta was increased. Her mood significantly improved and she became more
cooperative and pleasant. She denied suicidal or homicidal thoughts. Initial plan was to go for inpatient rehab. Patient expressed her wishes to go home and do outpatient rehab. Patient felt comfortable being home and had long discussion with
psychiatrist and case advocate. During the course of hospitalization, she was noted to have left parotitis. She was evaluated by ID and ENT specialist. She was started on intravenous antibiotics and steroid therapy. She significantly improved and
started to swallow and chew without difficulty. She was given pain medication and advised to continue with her oral antibiotics upon discharge. Patient remained hemodynamically stable. She was able to ambulate independently without dizziness or
tremor or imbalance. Patient expressed her wishes to go home and follow-up with her rehab as outpatient. Patient also verbalized understanding to risk of continuing alcohol use, and expressed willingness to stay sober. Patient was discharged home
in a stable condition. Patient requested prescription to refill Neurontin. She also requested pain medicine other than Tylenol to help with left parotid gland tenderness, she was given prescription for tramadol. Patient verbalized understand the
potential side effects of antibiotics and tramadol.
Discharge Plan
-
Patient Disposition: Home (Routine Discharge)
Discharge Diagnosis/Procedures: Alcohol withdrawal, delirium
Alcohol use disorder
Depression
You were seen by psychiatrist. Recommend new dose Cymbalta 90 mg and you can cut back as instructed.
You requested pain medications including refill of gabapentin. He was given a prescription for tramadol. Tramadol is an opioid, it may cause constipation, confusion/drowsiness/dependency. Avoid taking extra doses or combining with other
sedatives.
Acute left parotitis. You finished course of IV antibiotics. You are discharged on Augmentin and doxycycline.
Potential side effects of Augmentin include GI upset, diarrhea.
Potential side effects of doxycycline include GI upset, photosensitivity(avoid direct sun exposure while on treatment)
Follow-up with your primary care doctor. Make appointment with the ENT doctor if needed
Diet: As tolerated
Referrals:
NONE,* [Family Provider] -
Chelsey Vanegas MD [Active] - (As needed)
Prescriptions:
New
doxycycline hyclate 100 mg Capsule
100 mg PO Q12 Qty: 14 0RF
magnesium oxide 500 mg magnesium Tablet
500 mg PO DAILY Qty: 30 0RF
gabapentin 300 mg Capsule
300 mg PO TID Qty: 90 0RF
folic acid 1 mg Tablet
1 mg PO DAILY Qty: 30 0RF
amoxicillin-pot clavulanate 875-125 mg Tablet
1 tab PO Q12 Qty: 14 0RF
duloxetine 30 mg Capsule,Delayed Release(Dr/Ec)
90 mg PO DAILY Qty: 30 0RF
thiamine mononitrate (vit B1) 100 mg Tablet
100 mg PO DAILY Qty: 30 0RF
tramadol 50 mg tablet
50 mg PO BID PRN (Reason: severe pain) Qty: 10 0RF
prednisone 10 mg tablet
20 mg PO DAILY Qty: 6 0RF
Rx Instructions:
20 mg for 2 days then 10 mg for 2 days then stop .
Continued
potassium chloride 20 mEq Tablet,Er Particles/Crystals
20 meq PO BID Qty: 20 0RF
pantoprazole [Protonix] 40 mg tablet,delayed release (DR/EC)
40 mg PO DAILY Qty: 30 0RF
albuterol sulfate 90 mcg/actuation HFA aerosol inhaler
2 puff inhalation 6XD PRN (Reason: shortness of breath or wheezing) Qty: 8.5 0RF
loratadine [Claritin] 10 mg Tablet
10 mg PO DAILY
Discontinued
folic acid 1 mg Tablet
1 mg PO DAILY Qty: 30 0RF
thiamine HCl (vitamin B1) 100 mg Tablet
100 mg PO BID Qty: 60 0RF
duloxetine [Cymbalta] 60 mg Capsule,Delayed Release(Dr/Ec)
60 mg PO DAILY
gabapentin 300 mg Tablet
300 mg PO TID
Rx Instructions:
pt states takes 4x a day
Discharge Orders:
Discharge Patient (As Directed); Ordered 01/22/25
Ordered By: Little Vincent
Discharge Date and Time
Print Language: BRAZILIAN
[2025-01-23 08:40] LABS: Mumps Virus IgM 0.74 IV (<=0.79)
== END 2025-01-22 12:49 | disposition home or self-care (01) | DRG 896 ==
LOC: 4 WEST ACU 22:12
PROVIDERS: Hospitalist; Internal Medicine; Nurse Practitioner Adult Health; Nurse Practitioner Family; Physician Assistant; Physician Assistant Medical; ADMITTING PHYSICIAN Hospitalist; ATTENDING PHYSICIAN Internal Medicine; CONSULT PHYSICIAN Internal Medicine Critical Care Medicine; CONSULT PHYSICIAN Internal Medicine Gastroenterology; EMERGENCY PHYSICIAN Emergency Medicine; OTHER PHYSICIAN Internal Medicine Infectious Disease; OTHER PHYSICIAN Otolaryngology; OTHER PHYSICIAN Psychiatry & Neurology Psychiatry
DX: F10.231 Alcohol dependence with withdrawal delirium (principal); E43 Unspecified severe protein-calorie malnutrition; E87.20 Acidosis, unspecified; D61.818 Other pancytopenia; E87.1 Hypo-osmolality and hyponatremia; K86.1 Other chronic pancreatitis; D62 Acute posthemorrhagic anemia; K70.10 Alcoholic hepatitis without ascites; D69.59 Other secondary thrombocytopenia; F32.A Depression, unspecified; F41.9 Anxiety disorder, unspecified; K83.8 Other specified diseases of biliary tract; Y90.8 Blood alcohol level of 240 mg/100 ml or more; M54.2 Cervicalgia; F19.10 Other psychoactive substance abuse, uncomplicated; E87.6 Hypokalemia; Z68.24 Body mass index [BMI] 24.0-24.9, adult; K11.21 Acute sialoadenitis; E83.42 Hypomagnesemia; K27.9 Peptic ulcer, site unspecified, unspecified as acute or chronic, without hemorrhage or perforation; J45.909 Unspecified asthma, uncomplicated; Z79.899 Other long term (current) drug therapy; Z11.52 Encounter for screening for COVID-19
CPT/HCPCS: 70492; 71045; 74181; 76700; 80048; 80053; 80202; 80306; 80307; 82077; 82248; 82977; 83605; 83690; 83735; 84100; 84703; 85025; 85027; 85610; 85730; 86735; 87040; 87502; 87641; 87811; 93005; 94640; 96374; 99285; Q9967